=== PATIENT | female | born 1945 | race Caucasian/White ===

== ENCOUNTER 2016-08-07 10:47 | Day surgery (SDC) | payer OTHER, MEDICARE ==
[2016-07-26 10:49] VITALS: BMI 35.0
[~2016-08-07] VITALS: Ht 149.9 cm; Wt 78.6 kg
[~2016-08-07 10:47] MED LIST: CIPROFLOXACIN 400MG / 200ML D5W IV SCH; CMP/10 PO; LACTATED RINGER'S 1000ML 1,000 ML IV SCH; LEVO125T4 PO; LEVO137T3 PO; LORA-741 PO; LSX40 PO; MOME220A INH; MULT-190 PO; MULT-506 PO; ONDA4TAB46 PO; POTA20TA16 PO; VALS160T58 PO
[2016-08-07 11:03] VITALS: BP 149/65; PULSE 99; TEMP 37.4; O2SAT 95; Ht 149.9 cm; Wt 78.6 kg
[2016-08-07] MEDS ORDERED: INDOMETHACIN 50 MG SUPP PR ONE (11:15)
[2016-08-07] MEDS ORDERED: LACTATED RINGER'S 1000ML 1,000 ML IV ONE (11:15)
[2016-08-07 11:23] LABS: HEMATOCRIT 33.3 % (37-47); MEAN CELL VOLUME 92.5 fL (80-100); MEAN CORPUSCULAR HEMOGLOBIN 31.7 pg (25-34); MEAN PLATELET VOLUME 9.5 fL (7.4-10.4); PLATELET COUNT 616 K/uL (130-400); WHITE BLOOD COUNT 6.69 K/uL (4.8-10.8)
[2016-08-07 11:34] LABS: MEAN CORPUSCULAR HGB CONC 34.2 g/dl (32-36)
--- NOTE | 2016-08-07 11:51 | Endo History and Physical ---
History & Physical Date of Service: Aug 07, 2016. Chief Complaint: Biliary stent change Referring Physician: Dr. Ribera History of Present Illness Patient for a biliary stent change. History notable for pancreatic cancer, undergoing chemotherapy prior to attempted surgical resection Past Medical History High Cholesterol, Hypertension, Thyroid Disease Past Surgical History Hx Cardiac Surgery: No Hx Abdominal Surgery: No (LAPAROSCOPY) Hx Post-Op Nausea and Vomiting: No Hx Cancer Surgery: Yes (LUMPECTOMY R/L BREAST) Hx Thoracic Surgery: No Hx Orthopedic: Yes (MENISECTOMY R KNEE, CTR) Hx Urinary Tract Surgery: No Social History Smoking Status: Never Smoker Hx Substance Use: No Hx Alcohol Use: No Allergies Coded Allergies: Scopolamine (Verified Allergy, Intermediate, RASH, 08/07/16) Simvastatin (Verified Allergy, Intermediate, RASH, 08/07/16) Atorvastatin (Verified Allergy, Mild, RASH, 08/07/16) Current Medications Reported Home Medications Medications Dose Route/Sig Max Daily Dose Days Date Category Dose Instructions Prochlorperazine Maleate 10 Mg Tab 10 Mg PO UD 07/26/16 Reported AT NIGHT AFTER CHEMO Zofran (Ondansetron HCl) 4 Mg Tab 4 Mg PO TID PRN 07/26/16 Reported Klor-Con (Potassium Chloride) 20 Meq Tabcr 20 Meq PO QAM 05/23/16 Reported Multivitamin (Multivitamins) Tab 1 Tab PO QAM 05/23/16 Reported Ativan (Lorazepam) 0.5 Mg Tab 0.25-0.5 Mg PO DAILY PRN 05/23/16 Reported Levothyroxine Sodium 125 Mcg Tab 125 Mcg PO 4XWK 90 05/23/16 Reported FRIDAY, FRIDAY, FRIDAY, FRIDAY Asmanex Twisthaler 120 Me (Mometasone Furoate (Inhalation) 220 Mcg/Inh Aer 1 Puff INH BID PRN 05/23/16 Reported Diovan Hct 160MG/12.5MG (HCTZ/Valsartan) 1 Tab Tab 0.5 Tab PO DAILY 05/30/15 Reported Levothyroxine Sodium 137 Mcg Tab 137 Mcg PO 3XWK 05/30/15 Reported FRIDAY, FRIDAY, FRIDAY Ocuvite Preservision (Multivitamins/Minerals) 1 Tab Tab 2 Tab PO QAM 05/30/15 Reported Vital Signs Weight (Kilograms): 78.64 Height (Feet): 4 Height (Inches): 11 Date Time Temp Pulse Resp B/P Pulse Ox O2 Delivery O2 Flow Rate FiO2 08/07/16 11:03 37.4 99 18 149/65 95 Room Air Physical Exam General Appearance: no apparent distress Respiratory/Chest: Respiratory effort: no dyspnea Cardiovascular: Heart Auscultation: RRR, II/ HERNANDO Abdomen: Inspection & Palpation: soft Assessment and Plan Patient for a biliary stent change today. After a discussion we will place either a covered metal stent or 2 new biliary stents depending on the appearance of the cholangiogram. We have discussed the risks to include bleeding , infection, perforation, pain, pancreatitis, early stent occlusion and need for repeated procedures
[2016-08-07] MEDS ORDERED: MIDAZOLAM HCL 1 MG/ML 2ML VIAL ONE (12:58)
[2016-08-07] MEDS ORDERED: DEXAMETHASONE SOD INJ 4 MG/ML VIAL ONE (12:58)
[2016-08-07] MEDS ORDERED: FENTANYL CITRATE INJ 50 MCG/1 ML 2 ML VIAL ONE (12:58)
[2016-08-07] MEDS ORDERED: PROPOFOL IV EMULSION 10 MG/ML 20 ML VIAL IV ONE (12:58)
[2016-08-07] MEDS ORDERED: LIDOCAINE HCL 2% 2 ML VIAL (20MG/ML) ONE (12:58)
[2016-08-07] MEDS ORDERED: ONDANSETRON INJ 2 MG/ML 2 ML VIAL ONE (12:58)
[2016-08-07] MEDS ORDERED: SUCCINYLCHOLINE CHLORIDE 20 MG/ML 10 ML VIAL IV ONE (13:32)
--- NOTE | 2016-08-07 13:50 | Discharge Instructions ---
Endoscopy Patient Instructions Date / Procedure(s) Performed Aug 07, 2016. ERCP Allergy Information Coded Allergies: Scopolamine (Verified Allergy, Intermediate, RASH, 08/07/16) Simvastatin (Verified Allergy, Intermediate, RASH, 08/07/16) Atorvastatin (Verified Allergy, Mild, RASH, 08/07/16) Discharge Date / Findings Aug 07, 2016. Biliary stricture (known pancreatic mass) partially occluded biliary stent Medication Instructions Reported Home Medications Medications Dose Route/Sig Max Daily Dose Days Date Category Dose Instructions Prochlorperazine Maleate 10 Mg Tab 10 Mg PO UD 07/26/16 Reported AT NIGHT AFTER CHEMO Zofran (Ondansetron HCl) 4 Mg Tab 4 Mg PO TID PRN 07/26/16 Reported Klor-Con (Potassium Chloride) 20 Meq Tabcr 20 Meq PO QAM 05/23/16 Reported Multivitamin (Multivitamins) Tab 1 Tab PO QAM 05/23/16 Reported Ativan (Lorazepam) 0.5 Mg Tab 0.25-0.5 Mg PO DAILY PRN 05/23/16 Reported Levothyroxine Sodium 125 Mcg Tab 125 Mcg PO 4XWK 90 05/23/16 Reported FRIDAY, FRIDAY, FRIDAY, FRIDAY Asmanex Twisthaler 120 Me (Mometasone Furoate (Inhalation) 220 Mcg/Inh Aer 1 Puff INH BID PRN 05/23/16 Reported Diovan Hct 160MG/12.5MG (HCTZ/Valsartan) 1 Tab Tab 0.5 Tab PO DAILY 05/30/15 Reported Levothyroxine Sodium 137 Mcg Tab 137 Mcg PO 3XWK 05/30/15 Reported FRIDAY, FRIDAY, FRIDAY Ocuvite Preservision (Multivitamins/Minerals) 1 Tab Tab 2 Tab PO QAM 05/30/15 Reported Provider Instructions Activity Restrictions - No exercising or heavy lifting for 24 hours. - Do not drink alcohol the day of the procedure. - Do not drive a car or operate machinery until the day after the procedure. - Do not make any important decisions or sign important papers in 24 hours after the procedure. Following Day: - Return to full activity which may include returning to work/school. Diet Clear liquid diet today Treatment For Common After Affects For mild abdominal pain, bloating, or excessive gas: - Rest - Eat lightly - Lie on right side Follow-Up Information Cipro 500 mg twice daily for 3 days Clear liquid diet today Follow-up with Dr. Ribera and Dr. Peraza as scheduled Anesthesia Information What You Should Know You have had a procedure that required some medicine to reduce anxiety and discomfort. This treatment is called moderate sedation. After receiving the treatment, you may be sleepy, but you will be able to breathe on your own. The effects of the treatment may last for several hours. Follow these instructions along with Activity/Diet recommendations noted above: * Do NOT do anything where dizziness or clumsiness would be dangerous. * Rest quietly at home today, then you can be up and about tomorrow. * Have a responsible person stay with you the rest of today. * You may have had an I.V. today. If so, you may take the dressing off later today. Recommendations Call your doctor if: * Trouble breathing * Continuous vomiting for more than 24 hours * Temperature above 101 degrees * Severe abdominal pain or bloating * Pain not relieved by pain medicine ordered * There is increased drainage or redness from any incision * A large amount of rectal bleeding greater than 2-3 tablespoons. (If you had a polyp/s removed or have hemorrhoids, a small amount of blood - from the rectum is to be expected.) * You have any unanswered questions or concerns. IN THE EVENT OF A SERIOUS EMERGENCY, GO TO THE NEAREST EMERGENCY ROOM Your discharge instructions were prepared by provider Nerissa Foster. Patient Instructions Signature Page Thania Barragan Patient (or Guardian) Signature/Date: I have read and understand the instructions given to me by my caregivers. Caregiver/RN/Doctor Signature/Date: The above-named patient and/or guardian has received patient instructions on this date. + Original Patient Signature Page (only) stays with chart. Please make copy for patient.
--- NOTE | 2016-08-07 13:51 | [facility] Post Operative Brief Note ---
Immediate Operative Summary Operative Date Aug 07, 2016. Pre-Operative Diagnosis Pancreatic cancer Post-Operative Diagnosis Same as preoperative diagnosis Procedure(s) Performed Endoscopic Retrograde Cholangiopancreatogram, biliary stent exchange Surgeon Dr. Nerissa Foster Anesthesiologist Physician Surgeon(s) None Estimated Blood Loss 0 mL Findings Partially occluded biliary stent New covered metal stent placed. Specimens No pathology specimens per surgeon Anesthesia General Complication(s) None Disposition Recovery Room / PACU
[2016-08-07] MEDS ORDERED: ONDANSETRON INJ 2 MG/ML 2 ML VIAL IV PRN (14:00)
--- NOTE | 2016-08-07 14:14 | DIAGNOSTIC IMAGING REPORT ---
INTRAOPERATIVE RADIOGRAPHS CLINICAL HISTORY: ERCP procedure. Stent exchange. Fluoroscopy time: 29 seconds. FINDINGS: 9 spot fluoroscopic views of the right upper quadrant from an ERCP procedure are presented. Correlation is made with abdominal CT dated 05/24/2016. The initial image shows the endoscope present in the stomach and a common bile duct stent in place. Subsequent images show removal of the initial stent, and deployment of a new stent is deployed within the common bile duct. The intrahepatic bile ducts show only minimal dilatation. IMPRESSION: Intraoperative images from an ERCP procedure with common bile duct stent exchange as above. See operative report for detailed findings. Electronically signed by: Tano Hyde M.D. 08/07/2016 2:13 PM Dictated Date/Time: 08/07/2016 2:10 PM
--- NOTE | 2016-08-07 14:19 | Anesthesiology Progress Note ---
Anesthesia Post Op Note Date & Time Aug 07, 2016 at 14:19 Vital Signs Pain Intensity: 0 Vital Signs Past 12 Hours Date Time Temp Pulse Resp B/P Pulse Ox O2 Delivery O2 Flow Rate FiO2 08/07/16 14:15 90 16 161/75 97 Room Air 08/07/16 14:05 91 16 148/81 99 Room Air 08/07/16 13:56 87 16 149/79 100 Mask 10 08/07/16 13:47 36.2 91 16 148/83 99 Mask 10 08/07/16 11:03 37.4 99 18 149/65 95 Room Air Notes Mental Status: alert / awake / arousable, participated in evaluation Pt Amnestic to Procedure: Yes Nausea / Vomiting: adequately controlled Pain: adequately controlled Airway Patency, RR, SpO2: stable & adequate BP & HR: stable & adequate Hydration State: stable & adequate Anesthetic Complications: no major complications apparent
[2016-08-07 14:30] VITALS: BP 114/51; PULSE 88; TEMP 36.3; O2SAT 97
[2016-08-07] MEDS ORDERED: ATROPINE SULFATE 0.1 MG/ML 5ML SYR IV PRN (14:30)
[2016-08-07] MEDS ORDERED: EpHEDrine SULFATE INJ 50 MG/ML AMP IV PRN (14:30)
[2016-08-07 15:06] VITALS: BP 138/61; PULSE 89; O2SAT 97
--- NOTE | 2016-08-07 15:19 | GI REPORT ---
Procedure Date: 08/07/2016 12:55 PM Procedure: ERCP Indications: Malignant tumor of the head of pancreas, Stent change Medicines: General Anesthesia, Cipro 400 mg IV, Indocin 100 mg DC Complications: No immediate complications. Estimated blood loss: Minimal. Estimated Blood Loss: Estimated blood loss was minimal. Procedure: Pre-Anesthesia Assessment: - Prior to the procedure, a History and Physical was performed, and patient medications, allergies and sensitivities were reviewed. The patient's tolerance of previous anesthesia was reviewed. - The risks and benefits of the procedure and the sedation options and risks were discussed with the patient. All questions were answered and informed consent was obtained. - Patient identification and proposed procedure were verified prior to the procedure by the physician, the nurse and the receptionist. The procedure was verified in the procedure room. - Pre-procedure physical examination revealed no contraindications to sedation. - ASA Grade Assessment: III - A patient with severe systemic disease. - After reviewing the risks and benefits, the patient was deemed in satisfactory condition to undergo the procedure. - The anesthesia plan was to use general anesthesia. - Immediately prior to administration of medications, the patient was re-assessed for adequacy to receive sedatives. - The heart rate, respiratory rate, oxygen saturations, blood pressure, adequacy of pulmonary ventilation, and response to care were monitored throughout the procedure. - The physical status of the patient was re-assessed after the procedure. After obtaining informed consent, the scope was passed under direct vision. Throughout the procedure, the patient's blood pressure, pulse, and oxygen saturations were monitored continuously. The ERCP was accomplished without difficulty. The patient tolerated the procedure well. The Scope was introduced through the mouth, and advanced to the duodenum and used to inject contrast into the bile duct. Findings: A assistant press operator offset film of the abdomen was obtained. One stent ending in the main bile duct was seen. The esophagus was successfully intubated under direct vision without detailed examination of the pharynx, larynx, and associated structures, and upper GI tract. The upper GI tract was grossly normal. One biliary stent originating in the biliary tree was emerging from the major papilla. The stent was partially occluded. A biliary sphincterotomy had been performed. The sphincterotomy appeared open. One stent was removed from the biliary tree using a snare. The bile duct was deeply cannulated with the short-nosed traction sphincterotome (Omni 35) and 0.035 in Acrobat guidewire. Contrast was injected. I personally interpreted the bile duct images. Contrast extended to the hepatic ducts. The middle/lower third of the main bile duct contained a single segmental stenosis 20 mm in length. One 10 Fr by 6 cm (Wallfex Biliary Rx 10mm x 60 mm, REF [id number], Lot [id number]) covered metal stent was placed 5.5 cm into the common bile duct, the upper extent of the stent was below the cystic duct takeoff. Bile flowed through the stent. The stent was in good position. The total fluoroscopy exposure time was 29 seconds. The endoscope was withdrawn from the patient. Impression: - One partially occluded stent from the biliary tree was seen in the major papilla. - Prior biliary endoscopic sphincterotomy appeared open. - One stent was removed from the biliary tree. - A segmental biliary stricture was found. The stricture was malignant appearing and consistent with her know pancreatic cancer. - One covered metal stent was placed into the CBD. Recommendation: - Discharge patient to home (ambulatory). - Clear liquid diet today. - Observe patient's clinical course following today's ERCP with therapeutic intervention. - Cipro 500 mg twice daily for 3 days. Nerissa Foster D.O. Nerissa Foster, 08/07/2016 1:42:55 PM This report has been signed electronically. Note Initiated On: 08/07/2016 12:55 PM I attest to the content of the Intraoperative Record and orders documented therein, exceptions below
[2016-10-21] MEDS ORDERED: FERR325T PO (11:55)
== END 2016-08-07 16:00 | disposition home or self-care (01) ==
LOC: C.ACU 10:47
PROVIDERS: ATTEND Internal Medicine Gastroenterology
DX: C25.0 Malignant neoplasm of head of pancreas (principal); J45.909 Unspecified asthma, uncomplicated; I10 Essential (primary) hypertension; Z98.890 Other specified postprocedural states; Z68.34 Body mass index [BMI] 34.0-34.9, adult; E11.9 Type 2 diabetes mellitus without complications; F41.9 Anxiety disorder, unspecified; E66.9 Obesity, unspecified

== ENCOUNTER 2016-10-18 20:05 | Inpatient (IN) | payer OTHER, MEDICARE ==
[~2016-10-18] VITALS: Ht 149.9 cm; Wt 83.8 kg
[~2016-10-18 20:05] MED LIST changes: -CIPROFLOXACIN 400MG / 200ML D5W IV SCH; -LACTATED RINGER'S 1000ML 1,000 ML IV SCH; -LEVO125T4 PO; +LEVO125T5 PO; -LSX40 PO
[2016-10-18] MEDS ORDERED: ALBUT/IPRATROP 3MG/0.5MG NEB 3 ML VIAL INH STA (20:22)
[2016-10-18] MEDS ORDERED: SODIUM CHLORIDE 0.9% 1000ML 1,000 ML IV STA (20:22)
[2016-10-18] MEDS ORDERED: ACETAMINOPHEN 500 MG TAB PO STA (20:24)
--- NOTE | 2016-10-18 20:39 | EMERGENCY ROOM VISIT NOTE ---
History Report prepared by Seb: Sunil Rahman Under the Supervision of: Dr. Andrew Jones D.O. First contact with patient: 20:10 Chief Complaint: FEVER Stated Complaint: FEVER History of Present Illness The patient is a 71 year old female who presents to the Emergency Room with complaints of persistent cough that started yesterday. The cough is productive but clear. She notes there is no blood or mucus in it. The patient also complains of fever and swelling in her legs. The patient has a history of pancreatic cancer and is currently receiving chemo treatment. Her last round of chemo is in 3 days. The patient was with her doctors in [place] yesterday when they noticed the fever and recommended she take Cipro. They recommended she present to the urgent care or the ED if the fever didn't get better or it worsened. The patient presented to the urgent care and they recommended she present to the ED for her fever prior to arrival in the ED. The patient denies chest pain, trouble breathing, abdominal pain, or vomiting. Source of History: patient Onset: yesterday Position: other (global) Timing: other (persistent) Associated Symptoms: + fevers, No abdominal pain, No chest pain, No vomiting Note: Other associated symptoms: swelling in legs Denies: trouble breathing Review of Systems See HPI for pertinent positives & negatives. A total of 10 systems reviewed and were otherwise negative. Past Medical & Surgical Medical Problems: (1) Acute cholecystitis (2) Asthma (3) Hypercholesterolemia (4) Hypertension (5) Hypothyroidism (6) Neoplasm of head of pancreas (7) Pneumonia involving right lung Surgical Problems: (1) History of bilateral carpal tunnel release (2) History of lumpectomy of both breasts (3) Hx of meniscectomy of right knee Family History Cancer Hypertension Kidney disease Kidney stones Social History Smoking Status: Never Smoker Marital Status: Occupation Status: employed Current/Historical Medications Scheduled Furosemide (Lasix), 20 MG PO QAM Levothyroxine Sodium (Levothyroxine Sodium), 137 MCG PO 3XWK Levothyroxine Sodium (Levothyroxine Sodium), 125 MCG PO 4XWK Multivitamin (Multivitamin), 1 TAB PO QAM Ocuvite Preservision (Ocuvite Preservision), 2 TAB PO QAM Potassium Ext Rel (Klor-Con), 20 MEQ PO QAM Prochlorperazine Maleate (Prochlorperazine Maleate), 10 MG PO UD Valsartan/Hctz (Diovan Hct 160MG/12.5MG), 0.5 TAB PO DAILY Scheduled PRN Lorazepam (Ativan), 0.25-0.5 MG PO DAILY PRN for Anxiety Mometasone Furoate (Inhalation (Asmanex Twisthaler 120 Me), 1 PUFF INH BID PRN for Shortness of Breath Ondansetron Hcl (Zofran), 4 MG PO TID PRN for Nausea Allergies Coded Allergies: Scopolamine (Verified Allergy, Intermediate, RASH, 10/18/16) Simvastatin (Verified Allergy, Intermediate, RASH, 10/18/16) Atorvastatin (Verified Allergy, Mild, RASH, 10/18/16) Physical Exam Vital Signs Date Time Temp Pulse Resp B/P Pulse Ox O2 Delivery O2 Flow Rate FiO2 10/18/16 21:35 110 26 95 10/18/16 21:35 36.8 10/18/16 21:05 115 20 95 10/18/16 21:00 143/61 10/18/16 20:45 167/66 10/18/16 20:45 99 Room Air 10/18/16 20:37 113 10/18/16 20:35 113 25 93 10/18/16 20:24 37.5 117 24 167/66 96 Room Air 10/18/16 20:08 38.8 122 18 151/74 95 Room Air Physical Exam GENERAL: Patient is awake alert and mildly anxious appearing but overall comfortable. EYES: The conjunctivae are clear. The pupils are round and reactive. EARS, NOSE, MOUTH AND THROAT: The nose is without any evidence of any deformity. Mucous membranes are moist tongue is midline NECK: The neck is nontender and supple. RESPIRATORY: Lung sounds diminished throughout, mild tachypnea was noted. CARDIOVASCULAR: Tachycardic but regular. Systolic murmur appreciated to oscillation. GASTROINTESTINAL: The abdomen is soft. Bowel sounds are present in all quadrants. Abdomen is nontender MUSCULOSKELETAL/EXTREMITIES: There is no evidence of gross deformity full range of motion is noted in the hips and shoulders SKIN: There is no obvious evidence of any rash. There are no petechiae, pallor or cyanosis noted. tr NEUROLOGIC: Patient is awake alert and oriented x3 Medical Decision & Procedures ER Provider Diagnostic Interpretation: X-ray results as stated below per interpretation by me and the radiologist. CHEST ONE VIEW PORTABLE HISTORY: Fever. Sepsis COMPARISON: None. FINDINGS: Right jugular Port-A-Cath appears to terminate within the mid to distal jugular vein. No pneumothorax. Trace bilateral pleural effusions. The heart is borderline enlarged. Slight prominence of the central markings, right greater the left. This may represent mild asymmetric congestive change. There is a hazy density to the right lung base. IMPRESSION: 1. Mild asymmetric congestive change and trace bilateral pleural effusions. 2. Hazy right basilar density which may represent atelectasis or pneumonia. 3. Only a small portion of the right jugular Port-A-Cath appears to be intravascular. This terminates at the mid to distal jugular vein. Electronically signed by: Hany Corey M.D. 10/18/2016 9:05 PM Dictated Date/Time: 10/18/2016 9:03 PM Laboratory Results 10/18/16 20:30 Red Blood Count 2.87, Mean Corpuscular Volume 101.4, Mean Corpuscular Hemoglobin 33.1, Mean Corpuscular Hemoglobin Concent 32.6, Mean Platelet Volume 10.6, Neutrophils (%) (Auto) 88.4, Lymphocytes (%) (Auto) 9.6, Monocytes (%) ( Auto) 0.9, Eosinophils (%) (Auto) 0.7, Basophils (%) (Auto) 0.1, Neutrophils # ( Auto) 9.33, Lymphocytes # (Auto) 1.01, Monocytes # (Auto) 0.09, Eosinophils # ( Auto) 0.07, Basophils # (Auto) 0.01 10/18/16 20:30 Test 10/18/16 20:30 10/18/16 20:45 10/18/16 21:05 White Blood Count 10.54 K/uL (4.8-10.8) Red Blood Count 2.87 M/uL (4.2-5.4) Hemoglobin 9.5 g/dL (12.0-16.0) Hematocrit 29.1 % (37-47) Mean Corpuscular Volume 101.4 fL (80-100) Mean Corpuscular Hemoglobin 33.1 pg (25-34) Mean Corpuscular Hemoglobin Concent 32.6 g/dl (32-36) Platelet Count 319 K/uL (130-400) Mean Platelet Volume 10.6 fL (7.4-10.4) Neutrophils (%) (Auto) 88.4 % Lymphocytes (%) (Auto) 9.6 % Monocytes (%) (Auto) 0.9 % Eosinophils (%) (Auto) 0.7 % Basophils (%) (Auto) 0.1 % Neutrophils # (Auto) 9.33 K/uL (1.4-6.5) Lymphocytes # (Auto) 1.01 K/uL (1.2-3.4) Monocytes # (Auto) 0.09 K/uL (0.11-0.59) Eosinophils # (Auto) 0.07 K/uL (0-0.5) Basophils # (Auto) 0.01 K/uL (0-0.2) RDW Standard Deviation 61.0 fL (36.4-46.3) RDW Coefficient of Variation 16.5 % (11.5-14.5) Immature Granulocyte % (Auto) 0.3 % Immature Granulocyte # (Auto) 0.03 K/uL (0.00-0.02) Erythrocyte Sedimentation Rate 53 mm/hr (0-21) Prothrombin Time 11.2 SECONDS (9.0-12.0) Prothromb Time International Ratio 1.0 (0.9-1.1) Activated Partial Thromboplast Time 28.5 SECONDS (21.0-31.0) Partial Thromboplastin Ratio 1.1 Anion Gap 4.0 mmol/L (3-11) Est Creatinine Clear Calc Drug Dose 25.4 ml/min Estimated GFR () 30.4 Estimated GFR (Non- 26.3 BUN/Creatinine Ratio 19.0 (10-20) Calcium Level 8.6 mg/dl (8.5-10.1) Phosphorus Level 1.9 mg/dl (2.5-4.9) Magnesium Level 2.1 mg/dl (1.8-2.4) Total Bilirubin 0.7 mg/dl (0.2-1) Aspartate Amino Transf (AST/SGOT) 25 U/L (15-37) Alanine Aminotransferase (ALT/SGPT) 26 U/L (12-78) Alkaline Phosphatase 72 U/L (45-117) Total Creatine Kinase 112 U/L (26-192) Creatine Kinase MB < 0.5 ng/ml (0.5-3.6) Creatine Kinase MB Ratio (0-3.0) Troponin I < 0.015 ng/ml (0-0.045) C-Reactive Protein 20.30 mg/dl (0-0.29) Pro-B-Type Natriuretic Peptide 472 pg/ml (0-900) Total Protein 6.2 gm/dl (6.4-8.2) Albumin 2.9 gm/dl (3.4-5.0) Globulin 3.3 gm/dl (2.5-4.0) Albumin/Globulin Ratio 0.9 (0.9-2) Amylase Level 23 U/L (25-115) Lipase 71 U/L (73-393) Bedside Lactic Acid Venous 1.14 mmol/L (0.90-1.70) Urine Color YELLOW Urine Appearance CLEAR (CLEAR) Urine pH 5.0 (4.5-7.5) Urine Specific Cocoa 1.017 (1.000-1.030) Urine Protein TRACE (NEG) Urine Glucose (UA) NEG (NEG) Urine Ketones NEG (NEG) Urine Occult Blood TRACE (NEG) Urine Nitrite NEG (NEG) Urine Bilirubin NEG (NEG) Urine Urobilinogen NEG (NEG) Urine Leukocyte Esterase MODERATE (NEG) Urine WBC (Auto) 10-30 /hpf (0-5) Urine RBC (Auto) 0-4 /hpf (0-4) Urine Hyaline Casts (Auto) 5-10 /lpf (0-5) Urine Epithelial Cells (Auto) >30 /lpf (0-5) Urine Bacteria (Auto) NEG (NEG) Laboratory results per my review. Medications Administered Medications (Trade) Dose Ordered Sig/Gregor Route Start Time Stop Time Status Last Admin Dose Admin Sodium Chloride (Nss 1000ml) 1,000 ml @ 999 mls/hr Q1H1M STAT IV 10/18/16 20:22 10/18/16 21:22 DC 10/18/16 20:38 999 MLS/HR Albuterol/ Ipratropium (Duoneb) 3 ml NOW STAT INH 10/18/16 20:22 10/18/16 20:24 DC 10/18/16 20:37 3 ML Acetaminophen (Tylenol Tab) 1,000 mg NOW STAT PO 10/18/16 20:24 10/18/16 20:25 DC 10/18/16 20:37 1,000 MG Levofloxacin (Levaquin / D5W) 750 mg NOW STAT IV 10/18/16 21:11 10/18/16 21:12 DC 10/18/16 21:18 750 MG ECG Indication: other Rate (beats per minute): 120 Rhythm: sinus tachycardia Findings: no ectopy, other (no acute ST segment abnormality) Comparison ECG Date: increased rate otherwise no change since September 21, 1996. ED Course 2020: The patient was evaluated in room B5. A complete history and physical examination were performed. 2021: Ordered Duoneb 3 ml INH, NSS 1000 ml @ 999 mls/hr IV. 2023: Ordered Tylenol Tab 1000 mg PO. 2110: Ordered Levofloxacin 750 mg IV. 2233: At this time, I discussed the patient's case with Dr. Kasandra REINOSO and he agreed to accept the patient for further evaluation. Medical Decision Differential diagnosis: Etiologies such as viral syndrome, otitis, pharyngitis, pneumonia, influenza, meningitis, urinary tract infection, sepsis, bacteremia, as well as others were entertained. Nursing notes reviewed. The patient is a 71-year-old female who has a history of cancer who was recently treated with chemotherapy. The patient presented to the emergency department today with cough and fever. Clinically the patient appears to have decreased breath sounds and could be consistent with clinical pneumonia. Chest x -ray revealed a questionable area that I do feels consistent with pneumonia. I discussed the patient's laboratory and radiographic studies with her. She did have a slight anemia but no neutropenia. The patient was treated with IV fluids IV antibiotics. On subsequent reevaluation she was somewhat improved but continued to have tachycardia. I discussed the patient's condition with the on- call [facility] hospitalist group. Given her past medical history and her fever I feel she may be a candidate for inpatient admission at this time. Consults Time Called: [id number] Consulting Physician: Dr. Kasandra REINOSO Returned Call: [phone] At this time, I discussed the patient's case with Dr. Kasandra REINOSO and he agreed to accept the patient for further evaluation. Impression Primary Impression: Fever Additional Impressions: Pneumonia UTI (urinary tract infection) Anemia Scribe Attestation The scribe's documentation has been prepared under my direction and personally reviewed by me in its entirety. I confirm that the note above accurately reflects all work, treatment, procedures, and medical decision making performed by me. Departure Information Dispostion Being Evaluated By Hospitalist Referrals Jennifer Hylton DO (PCP) Problem Qualifiers Primary Impression: Fever Fever type: unspecified Qualified Codes: R50.9 - Fever, unspecified Additional Impressions: UTI (urinary tract infection) Urinary tract infection type: site unspecified Hematuria presence: without hematuria Qualified Codes: N39.0 - Urinary tract infection, site not specified
[2016-10-18 20:47] LABS: BASO % 0.1 %; BASO ABS # 0.01 K/uL (0-0.2); COMPLETE YES; EOS % 0.7 %; HEMATOCRIT 29.1 % (37-47); IG% 0.3 %; LYMPH % 9.6 %; LYMPH ABS # 1.01 K/uL (1.2-3.4); MEAN CELL VOLUME 101.4 fL (80-100); MEAN CORPUSCULAR HEMOGLOBIN 33.1 pg (25-34); MEAN CORPUSCULAR HGB CONC 32.6 g/dl (32-36); MEAN PLATELET VOLUME 10.6 fL (7.4-10.4); MONO % 0.9 %; NEUT % 88.4 %; PLATELET COUNT 319 K/uL (130-400); RED BLOOD COUNT 2.87 M/uL (4.2-5.4); WHITE BLOOD COUNT 10.54 K/uL (4.8-10.8)
[2016-10-18 20:58] LABS: PARTIAL THROMBOPLASTIN RATIO 1.1; PROTHROMBIN TIME (PATIENT) 11.2 SECONDS (9.0-12.0)
[2016-10-18] MEDS ORDERED: FURO40TA3 PO (21:00)
[2016-10-18 21:07] LABS: AST/SGOT 25 U/L (15-37); BLOOD UREA NITROGEN 36 mg/dl (7-18); CALCIUM 8.6 mg/dl (8.5-10.1); CARBON DIOXIDE 29 mmol/L (21-32); CHLORIDE 102 mmol/L (98-107); GLUCOSE 118 mg/dl (70-99); MAGNESIUM 2.1 mg/dl (1.8-2.4); POTASSIUM 4.5 mmol/L (3.5-5.1); SODIUM 135 mmol/L (136-145)
--- NOTE | 2016-10-18 21:07 | DIAGNOSTIC IMAGING REPORT ---
CHEST ONE VIEW PORTABLE HISTORY: Fever. Sepsis COMPARISON: None. FINDINGS: Right jugular Port-A-Cath appears to terminate within the mid to distal jugular vein. No pneumothorax. Trace bilateral pleural effusions. The heart is borderline enlarged. Slight prominence of the central markings, right greater the left. This may represent mild asymmetric congestive change. There is a hazy density to the right lung base. IMPRESSION: 1. Mild asymmetric congestive change and trace bilateral pleural effusions. 2. Hazy right basilar density which may represent atelectasis or pneumonia. 3. Only a small portion of the right jugular Port-A-Cath appears to be intravascular. This terminates at the mid to distal jugular vein. Electronically signed by: Hany Corey M.D. 10/18/2016 9:05 PM Dictated Date/Time: 10/18/2016 9:03 PM
[2016-10-18] MEDS ORDERED: LEVAQUIN 750MG / 150ML D5W IV STA (21:11)
[2016-10-18 21:17] LABS: ALB/GLOB RATIO 0.9 (0.9-2); ALKALINE PHOSPHATASE 72 U/L (45-117); ALT/SGPT 26 U/L (12-78); AMYLASE 23 U/L (25-115); PHOSPHORUS 1.9 mg/dl (2.5-4.9)
[2016-10-18 21:34] LABS: URINE APPEARANCE CLEAR (CLEAR); URINE BILIRUBIN NEG (NEG); URINE COLOR YELLOW; URINE EPITHELIAL CELL AUTO >30 /lpf (0-5); URINE NITRITE NEG (NEG); URINE SPECIFIC GRAVITY 1.017 (1.000-1.030); UROBILINOGEN NEG (NEG); ZZUR CULT IF INDIC CLEAN CATCH YES
[2016-10-18 21:36] LABS: MANUAL MICROSCOPIC REQUIRED? NO; REVIEW REQ? NO
[2016-10-18] MEDS ORDERED: LORAZEPAM 0.5 MG TAB PO PRN (22:15)
[2016-10-18] MEDS ORDERED: METHYLPREDNISOLONE IV 60 MG in SYRINGE 0 ML IV SCH (22:15)
[2016-10-18] MEDS ORDERED: ONDANSETRON INJ 2 MG/ML 2 ML VIAL IV PRN (22:15)
[2016-10-18] MEDS ORDERED: PROCHLORPERAZINE MALEATE 10 MG TAB PO PRN (22:15)
[2016-10-18] MEDS ORDERED: GUAIFENESIN/CODEINE 100MG/10MG 5ML UDC PO PRN (22:30)
[2016-10-18] MEDS ORDERED: GUAIFENESIN/CODEINE 200MG/20MG 10ML UDC PO PRN (22:30)
--- NOTE | 2016-10-18 23:23 | History and Physical ---
History & Physical Date & Time of Service: October 18, 2016 at 23:24 Chief Complaint: Pneumonia Involving Right Lung Primary Care Physician: Jennifer Hylton DO History of Present Illness Source: patient, family The patient is a 71-year-old female presents emergency department with a cough that began 6 days previously, but worsened over the last 24 hours she presently is undergoing chemotherapy for pancreatic cancer, and is undergoing Whipple procedure on November 19 at [facility] in [place]. When she was visiting her doctors in [place] yesterday, she was found to have an asymptomatic temperature, and was told to presents to urgent care or the ED for temperature lasted 24 hours. She did present to urgent care today prior to arrival, who referred her to the emergency department for assessment. She does have a history of asthma, and has been using her inhalers as directed, without significant improvement. Past Medical/Surgical History Medical Problems: (1) Asthma Status: Chronic (2) Hypercholesterolemia Status: Chronic (3) Hypertension Status: Chronic (4) Hypothyroidism Status: Chronic Surgical Problems: (1) History of bilateral carpal tunnel release Status: Resolved (2) History of lumpectomy of both breasts Status: Resolved (3) Hx of meniscectomy of right knee Status: Resolved Family History Cancer Hypertension Kidney disease Kidney stones Social History Smoking Status: Never Smoker Smokeless Tobacco Use: No Alcohol Use: none Drug Use: none Marital Status: Occupational Status: employed Multi-Drug Resistant Organisms History of MDRO: No Allergies Coded Allergies: Scopolamine (Verified Allergy, Intermediate, RASH, 10/18/16) Simvastatin (Verified Allergy, Intermediate, RASH, 10/18/16) Atorvastatin (Verified Allergy, Mild, RASH, 10/18/16) Home Medications Scheduled Furosemide (Lasix), 20 MG PO QAM Levothyroxine Sodium (Levothyroxine Sodium), 137 MCG PO 3XWK Levothyroxine Sodium (Levothyroxine Sodium), 125 MCG PO 4XWK Multivitamin (Multivitamin), 1 TAB PO QAM Ocuvite Preservision (Ocuvite Preservision), 2 TAB PO QAM Potassium Ext Rel (Klor-Con), 20 MEQ PO QAM Prochlorperazine Maleate (Prochlorperazine Maleate), 10 MG PO UD Valsartan/Hctz (Diovan Hct 160MG/12.5MG), 0.5 TAB PO DAILY Scheduled PRN Lorazepam (Ativan), 0.25-0.5 MG PO DAILY PRN for Anxiety Mometasone Furoate (Inhalation (Asmanex Twisthaler 120 Me), 1 PUFF INH BID PRN for Shortness of Breath Ondansetron Hcl (Zofran), 4 MG PO TID PRN for Nausea Review of Systems Constitutional: + fever, No chills, No fatigue, No sweats, No weakness, No weight loss Eyes: No diplopia, No discharge, No eye pain, No problem reported, No redness, No worsening of vision ENT: No dental problems, No hearing loss, No nasal symptoms, No problem reported, No sore throat, No tinnitus, No trouble swallowing, No unusual epistaxis Respiratory: + cough, No dyspnea at rest, No dyspnea on exertion, No hemoptysis , No shortness of breath, No sputum, No wheezing Cardiovascular: No PND, No chest pain, No claudication, No edema, No orthopnea , No palpitations, No problem reported Abdomen: No GI bleeding, No constipation, No diarrhea, No nausea, No pain, No problem reported, No vomiting Musculoskeletal: No calf pain, No joint pain, No muscle pain, No problem reported, No swelling Genitourinary - Female: No dysmenorrhea, No dysuria, No hematuria, No menorrhagia, No metrorrhagia, No , No problem reported, No rash, No urinary frequency, No urinary incontinence, No urinary retention, No urinary urgency, No vaginal bleeding, No vaginal discharge, No vaginal itching, No vulvodynia Neurologic: No balance problems, No memory loss, No numbness/tingling, No paralysis, No problem reported, No vertigo, No weakness Psychiatric: No anhedonism, No anxiety, No depression symptoms, No insomnia, No problem reported, No substance abuse Endocrine: No excessive thirst, No excessive urination, No fatigue, No problem reported Hematologic / Lymphatic: No abnormal bleeding/bruising, No clotting problems, No night sweats, No problem reported, No swollen lymph nodes Integumentary: No bleeding, No color change, No itch, No new/changing skin lesions, No problem reported, No rash Allergic / Immunologic: No environmental allergies, No food allergies, No frequent infections, No hives, No pet sensitivities, No poor healing, No problem reported, No prolonged convalescence, No seasonal allergies Physical Exam Vital Signs Date Time Temp Pulse Resp B/P Pulse Ox O2 Delivery O2 Flow Rate FiO2 10/18/16 22:48 37.0 105 24 137/54 94 Room Air 10/18/16 21:35 110 26 95 10/18/16 21:35 36.8 10/18/16 21:05 115 20 95 10/18/16 21:00 143/61 10/18/16 20:45 167/66 10/18/16 20:45 99 Room Air 10/18/16 20:37 113 10/18/16 20:35 113 25 93 10/18/16 20:24 37.5 117 24 167/66 96 Room Air 10/18/16 20:08 38.8 122 18 151/74 95 Room Air General Appearance: WD/WN, no apparent distress Head: normocephalic, atraumatic Eyes: normal inspection, PERRL, EOMI, sclerae normal ENT: normal ENT inspection, hearing grossly normal, pharynx normal Neck: supple, no adenopathy, thyroid normal, no JVD, no carotid bruits, trachea midline Respiratory/Chest: chest non-tender, no respiratory distress, no accessory muscle use, + rhonchi (bilaterally.), + wheezing (bilaterally anterior and posteriorly.) Cardiovascular: regular rate, rhythm, no edema, no gallop, no JVD, no murmur, normal peripheral pulses Abdomen/GI: normal bowel sounds, non tender, soft, no organomegaly, no pulsatile mass Back: normal inspection, no CVA tenderness, no muscle spasm, normal range of motion Extremities/Musculoskelatal: normal inspection, no calf tenderness, normal capillary refill, no pedal edema, normal range of motion, non-tender Neurologic/Psych: research assistant member II-XII nml as tested, no motor/sensory deficits, alert, normal mood/affect, normal reflexes, oriented x 3 Skin: normal color, warm/dry, no rash Lymphatic: no adenopathy Diagnostics Laboratory Results Results Past 24 Hours Test 10/18/16 20:30 10/18/16 20:45 10/18/16 21:05 Range/Units White Blood Count 10.54 4.8-10.8 K/uL Red Blood Count 2.87 4.2-5.4 M/uL Hemoglobin 9.5 12.0-16.0 g/dL Hematocrit 29.1 37-47 % Mean Corpuscular Volume 101.4 80-100 fL Mean Corpuscular Hemoglobin 33.1 25-34 pg Mean Corpuscular Hemoglobin Concent 32.6 32-36 g/dl Platelet Count 319 130-400 K/uL Mean Platelet Volume 10.6 7.4-10.4 fL Neutrophils (%) (Auto) 88.4 % Lymphocytes (%) (Auto) 9.6 % Monocytes (%) (Auto) 0.9 % Eosinophils (%) (Auto) 0.7 % Basophils (%) (Auto) 0.1 % Neutrophils # (Auto) 9.33 1.4-6.5 K/uL Lymphocytes # (Auto) 1.01 1.2-3.4 K/uL Monocytes # (Auto) 0.09 0.11-0.59 K/uL Eosinophils # (Auto) 0.07 0-0.5 K/uL Basophils # (Auto) 0.01 0-0.2 K/uL RDW Standard Deviation 61.0 36.4-46.3 fL RDW Coefficient of Variation 16.5 11.5-14.5 % Immature Granulocyte % (Auto) 0.3 % Immature Granulocyte # (Auto) 0.03 0.00-0.02 K/uL Erythrocyte Sedimentation Rate 53 0-21 mm/hr Prothrombin Time 11.2 9.0-12.0 SECONDS Prothromb Time International Ratio 1.0 0.9-1.1 Activated Partial Thromboplast Time 28.5 21.0-31.0 SECONDS Partial Thromboplastin Ratio 1.1 Sodium Level 135 136-145 mmol/L Potassium Level 4.5 3.5-5.1 mmol/L Chloride Level 102 98-107 mmol/L Carbon Dioxide Level 29 21-32 mmol/L Anion Gap 4.0 3-11 mmol/L Blood Urea Nitrogen 36 7-18 mg/dl Creatinine 1.90 0.60-1.20 mg/dl Est Creatinine Clear Calc Drug Dose 25.4 ml/min Estimated GFR () 30.4 Estimated GFR (Non- 26.3 BUN/Creatinine Ratio 19.0 10-20 Random Glucose 118 70-99 mg/dl Calcium Level 8.6 8.5-10.1 mg/dl Phosphorus Level 1.9 2.5-4.9 mg/dl Magnesium Level 2.1 1.8-2.4 mg/dl Total Bilirubin 0.7 0.2-1 mg/dl Aspartate Amino Transf (AST/SGOT) 25 15-37 U/L Alanine Aminotransferase (ALT/SGPT) 26 12-78 U/L Alkaline Phosphatase 72 45-117 U/L Total Creatine Kinase 112 26-192 U/L Creatine Kinase MB < 0.5 0.5-3.6 ng/ml Creatine Kinase MB Ratio 0-3.0 Troponin I < 0.015 0-0.045 ng/ml C-Reactive Protein 20.30 0-0.29 mg/dl Pro-B-Type Natriuretic Peptide 472 0-900 pg/ml Total Protein 6.2 6.4-8.2 gm/dl Albumin 2.9 3.4-5.0 gm/dl Globulin 3.3 2.5-4.0 gm/dl Albumin/Globulin Ratio 0.9 0.9-2 Amylase Level 23 25-115 U/L Lipase 71 73-393 U/L Bedside Lactic Acid Venous 1.14 0.90-1.70 mmol/L Urine Color YELLOW Urine Appearance CLEAR CLEAR Urine pH 5.0 4.5-7.5 Urine Specific [place] 1.017 1.000-1.030 Urine Protein TRACE NEG Urine Glucose (UA) NEG NEG Urine Ketones NEG NEG Urine Occult Blood TRACE NEG Urine Nitrite NEG NEG Urine Bilirubin NEG NEG Urine Urobilinogen NEG NEG Urine Leukocyte Esterase MODERATE NEG Urine WBC (Auto) 10-30 0-5 /hpf Urine RBC (Auto) 0-4 0-4 /hpf Urine Hyaline Casts (Auto) 5-10 0-5 /lpf Urine Epithelial Cells (Auto) >30 0-5 /lpf Urine Bacteria (Auto) NEG NEG Microbiology Results 10/18/16 Blood Culture, Received Pending 10/18/16 Blood Culture, Received Pending 10/18/16 Urine Culture, Received Pending Diagnostic Radiology Patient Name: AMRITA LORENOZ Unit Number: [id number] Dictated: 10/18/162102 Transcribed: 10/18/162102 [place] Printed Date/Time: [~ rep prt dt]/[~ rep prt tm] [~ rep ct labl] - [~ rep ct ivnm] [facility] Radiology Department [place], [place] [id number] Dictated: 10/18/162102 Transcribed: 10/18/162102 [facility] Printed Date/Time: [~ rep prt dt]/[~ rep prt tm] [~ rep ct labl] - [~ rep ct ivnm] [~ rep ct add3]] CHEST ONE VIEW PORTABLE HISTORY: Fever. Sepsis COMPARISON: None. FINDINGS: Right jugular Port-A-Cath appears to terminate within the mid to distal jugular vein. No pneumothorax. Trace bilateral pleural effusions. The heart is borderline enlarged. Slight prominence of the central markings, right greater the left. This may represent mild asymmetric congestive change. There is a hazy density to the right lung base. IMPRESSION: 1. Mild asymmetric congestive change and trace bilateral pleural effusions. 2. Hazy right basilar density which may represent atelectasis or pneumonia. 3. Only a small portion of the right jugular Port-A-Cath appears to be intravascular. This terminates at the mid to distal jugular vein. Electronically signed by: Hany Corey M.D. 10/18/2016 9:05 PM Dictated Date/Time: 10/18/2016 9:03 PM The status of this report is Signed. Draft = Not yet reviewed or approved by Radiologist. Signed = Reviewed and approved by Radiologist. <AttendingPhy></AttendingPhy> <FamilyPhy>Jennifer Hylton, </FamilyPhy> < PrimaryPhy>Jennifer Hylton, DO</PrimaryPhy> <UnitNumber>[id number]</UnitNumber > <VisitNumber>[id number]</VisitNumber> <PatientName>AMRITA LORENZO</PatientName > <DateOfBirth>1945</DateOfBirth> <Location>[facility]</Location> <ServiceDate> 10/18/16</ServiceDate> <MNE>ESINDI</MNE> <OrderingPhy>Andrew Jones D.O.</ OrderingPhy> <OrderingPhyMNE>f rep ord dr lorenzana</OrderingPhyMNE> <DictatingPhyMNE> f rep dict dr lorenzana</DictatingPhyMNE> <CCListMNE>f rep ct salomón</CCListMNE> < AdmittingPhyMNE>f pt admit dr lorenzana</AdmittingPhyMNE> <AttendingPhyMNE>f pt attend dr lorenzana</AttendingPhyMNE> <ConsultingPhyMNE>f pt consult dr lorenzana</ConsultingPhyMNE> <FamilyPhyMNE>f pt fam dr lorenzana</FamilyPhyMNE> <OtherPhyMNE>f pt other dr lorenzana</OtherPhyMNE> < PrimaryPhyMNE>f pt prim care dr lorenzana</PrimaryPhyMNE> <ReferringPhyMNE>f pt referring dr lorenzana</ReferringPhyMNE> EKG EKG shows sinus tachycardia at 120 bpm, there are no acute ST-T changes. Impression Assessment and Plan Right lower lobe pneumonia/SIRS/healthcare setting associated--patient will be placed on vancomycin IV, Zosyn IV, levofloxacin IV, Solu-Medrol IV, guaifenesin by mouth and Xopenex with Atrovent nebulizers. Pancreatic cancer --She has been undergoing chemotherapy for 3 months, with her last treatment due in 3 days. She is scheduled to undergo a Whipple procedure on November 19 at [facility] in [place]. I we will consult her oncologist Dr. Ribera. Hypertension/renal insufficiency--hold furosemide 20 mg by mouth every morning, and Diovan/HCTZ 160/12.5 one half tablet by mouth daily. Place on normal saline at 100 mils per hour, repeat PRP in a.m. Hypothyroidism--she presently takes levothyroxine 125 g by mouth 4 times per week, and 137 g 3 times. Level of Care Med/Surg Advanced Directives Existing Advance Directive: No Existing Living Will: No Existing Power of Economic Analyst: No Resuscitation Status FULL RESUSCITATION VTE Prophylaxis VTE Risk Assessment Done? Y/N: Yes Risk Level: Moderate Given or contraindicated: SCD's Social Service Consult None Apply
[2016-10-18] MEDS ORDERED: IPRATROPIUM BROMIDE NEB SOLN 0.02% 2.5 ML VIAL INH PRN (23:45)
[2016-10-18] MEDS ORDERED: LEVALBUTEROL 1.25MG/0.5ML NEB INH PRN (23:45)
[2016-10-18] MEDS ORDERED: LEVOFLOXACIN CONSULT ACTIVE PRN (23:45)
[2016-10-18] MEDS ORDERED: CEFTRIAXONE SOD INJ 1 GM in DEXTROSE 5% ADD-VANTAGE 50ML 50 ML IV SCH (23:45)
[2016-10-19] VITALS (12 sets, daily range): BP systolic 118–165; BP diastolic 69–82; PULSE 83–101; TEMP 36.7–36.9; O2SAT 91–99; Ht 149.9 cm; Wt 83.8 kg
[2016-10-19] MEDS: IPRATROPIUM BROMIDE NEB SOLN 0.02% 2.5 ML VIAL INH SCH ×4 (01:35→19:00)
[2016-10-19] MEDS: LEVALBUTEROL 1.25MG/0.5ML NEB INH SCH ×4 (01:35→19:00)
[2016-10-19] MEDS ORDERED: LEVALBUTEROL/IPRATROPIUM NEB INH SCH (03:00)
[2016-10-19] MEDS ORDERED: VANCOMYCIN CONSULT ACTIVE PRN (03:30)
[2016-10-19] MEDS ORDERED: VANCOMYCIN INJ 2,000 MG in SODIUM CHLORIDE 0.9% 500ML 500 ML IV ONE (03:30)
[2016-10-19] MEDS ORDERED: PIPERACILL/TAZOBAC IV 4.5 GM in DEXTROSE 5% 100ML IV ONE (03:30)
[2016-10-19] MEDS ORDERED: PIPERACILL/TAZOBAC CONSULT ACTIVE PRN (03:30)
[2016-10-19] MEDS: SODIUM CHLORIDE 0.9% 1000ML 1,000 ML IV SCH ×2 (04:55→14:25)
[2016-10-19] MEDS ORDERED: LEVOTHYROXINE 125 MCG TAB PO SCH (06:30)
[2016-10-19 06:34] LABS: BASO % 0.1 %; BASO ABS # 0.01 K/uL (0-0.2); EOS % 0.6 %; HEMATOCRIT 25.4 % (37-47); IG% 0.4 %; LYMPH % 16.3 %; MEAN CORPUSCULAR HEMOGLOBIN 33.3 pg (25-34); MEAN CORPUSCULAR HGB CONC 32.7 g/dl (32-36); MEAN PLATELET VOLUME 10.9 fL (7.4-10.4); MONO % 2.5 %; NEUT % 80.1 %; PLATELET COUNT 257 K/uL (130-400); RED BLOOD COUNT 2.49 M/uL (4.2-5.4); WHITE BLOOD COUNT 6.76 K/uL (4.8-10.8)
[2016-10-19] MEDS: METHYLPREDNISOLONE IV 30 MG in SYRINGE 0 ML IV SCH ×2 (06:43→14:26)
[2016-10-19 06:56] LABS: BUN/CREATININE RATIO 18.8 (10-20); CALCIUM 7.7 mg/dl (8.5-10.1); CREATININE 1.6 mg/dl (0.60-1.20); MAGNESIUM 2.1 mg/dl (1.8-2.4); POTASSIUM 4.3 mmol/L (3.5-5.1)
[2016-10-19 07:00] LABS: COMPLETE YES; TEAR DROP CELLS 1+
[2016-10-19] MEDS ORDERED: COUGH DROP (SUGAR FREE) LOZ 24 LOZ/1 BOX ONE (08:12)
[2016-10-19] MEDS ORDERED: NURSING DECISION MEDICATION ORDER SCH (08:15)
[2016-10-19] MEDS: CEROVITE ADV FORMULA TAB PO SCH (08:16)
[2016-10-19] MEDS: MULTIVITAMIN TAB PO SCH (08:16)
[2016-10-19] MEDS: GUAIFENESIN 600 MG TABCR PO SCH ×2 (08:17→21:05)
--- NOTE | 2016-10-19 08:19 | Pharmacy Progress Note ---
Pharmacy Abx Initial Consult Date of Service October 19, 2016. Pharmacy Dosing Scope Date of Consult: 10/19/16 Consultation requested by: Dr. Stafford Pharmacy is consulted to initiate IV VANCOMYCIN, ZOSYN, and LEVOFLOXACIN therapy , order appropriate labs and adjust drug dose/frequency. Subjective The patient is a 71 year old female admitted on October 18, 2016 at 22:21 for cough , fever, likely RLL PNX in the setting of chemotherapy. Objective Height (Feet): 4 Height (Inches): 11.00 Weight (Kilograms): 81.000 Vital Signs (Past 12Hrs) Vital Signs Past 12 Hours Date Time Temp Pulse Resp B/P Pulse Ox O2 Delivery O2 Flow Rate FiO2 10/19/16 08:05 36.8 98 20 165/78 93 10/19/16 03:48 36.8 96 20 118/71 96 10/19/16 01:35 98 16 95 Room Air 10/19/16 00:30 36.9 123/69 10/19/16 00:30 96 Room Air 10/18/16 22:48 37.0 105 24 137/54 94 Room Air 10/18/16 21:35 110 26 95 10/18/16 21:35 36.8 10/18/16 21:05 115 20 95 10/18/16 21:00 143/61 10/18/16 20:45 167/66 10/18/16 20:45 99 Room Air 10/18/16 20:37 113 10/18/16 20:35 113 25 93 10/18/16 20:24 37.5 117 24 167/66 96 Room Air 10/18/16 20:08 38.8 122 18 151/74 95 Room Air Lab Results (24Hrs) Test 10/18/16 20:30 10/18/16 20:45 10/18/16 21:05 10/19/16 05:26 White Blood Count 10.54 K/uL (4.8-10.8) 6.76 K/uL (4.8-10.8) Red Blood Count 2.87 M/uL (4.2-5.4) 2.49 M/uL (4.2-5.4) Hemoglobin 9.5 g/dL (12.0-16.0) 8.3 g/dL (12.0-16.0) Hematocrit 29.1 % (37-47) 25.4 % (37-47) Mean Corpuscular Volume 101.4 fL (80-100) 102.0 fL (80-100) Mean Corpuscular Hemoglobin 33.1 pg (25-34) 33.3 pg (25-34) Mean Corpuscular Hemoglobin Concent 32.6 g/dl (32-36) 32.7 g/dl (32-36) Platelet Count 319 K/uL (130-400) 257 K/uL (130-400) Mean Platelet Volume 10.6 fL (7.4-10.4) 10.9 fL (7.4-10.4) Neutrophils (%) (Auto) 88.4 % 80.1 % Lymphocytes (%) (Auto) 9.6 % 16.3 % Monocytes (%) (Auto) 0.9 % 2.5 % Eosinophils (%) (Auto) 0.7 % 0.6 % Basophils (%) (Auto) 0.1 % 0.1 % Neutrophils # (Auto) 9.33 K/uL (1.4-6.5) 5.41 K/uL (1.4-6.5) Lymphocytes # (Auto) 1.01 K/uL (1.2-3.4) 1.10 K/uL (1.2-3.4) Monocytes # (Auto) 0.09 K/uL (0.11-0.59) 0.17 K/uL (0.11-0.59) Eosinophils # (Auto) 0.07 K/uL (0-0.5) 0.04 K/uL (0-0.5) Basophils # (Auto) 0.01 K/uL (0-0.2) 0.01 K/uL (0-0.2) RDW Standard Deviation 61.0 fL (36.4-46.3) 61.0 fL (36.4-46.3) RDW Coefficient of Variation 16.5 % (11.5-14.5) 16.7 % (11.5-14.5) Immature Granulocyte % (Auto) 0.3 % 0.4 % Immature Granulocyte # (Auto) 0.03 K/uL (0.00-0.02) 0.03 K/uL (0.00-0.02) Erythrocyte Sedimentation Rate 53 mm/hr (0-21) Prothrombin Time 11.2 SECONDS (9.0-12.0) Prothromb Time International Ratio 1.0 (0.9-1.1) Activated Partial Thromboplast Time 28.5 SECONDS (21.0-31.0) Partial Thromboplastin Ratio 1.1 Sodium Level 135 mmol/L (136-145) 137 mmol/L (136-145) Potassium Level 4.5 mmol/L (3.5-5.1) 4.3 mmol/L (3.5-5.1) Chloride Level 102 mmol/L (98-107) 104 mmol/L (98-107) Carbon Dioxide Level 29 mmol/L (21-32) 28 mmol/L (21-32) Anion Gap 4.0 mmol/L (3-11) 5.0 mmol/L (3-11) Blood Urea Nitrogen 36 mg/dl (7-18) 30 mg/dl (7-18) Creatinine 1.90 mg/dl (0.60-1.20) 1.60 mg/dl (0.60-1.20) Est Creatinine Clear Calc Drug Dose 25.4 ml/min 30.1 ml/min Estimated GFR () 30.4 37.4 Estimated GFR (Non- 26.3 32.3 BUN/Creatinine Ratio 19.0 (10-20) 18.8 (10-20) Random Glucose 118 mg/dl (70-99) 124 mg/dl (70-99) Calcium Level 8.6 mg/dl (8.5-10.1) 7.7 mg/dl (8.5-10.1) Phosphorus Level 1.9 mg/dl (2.5-4.9) Magnesium Level 2.1 mg/dl (1.8-2.4) 2.1 mg/dl (1.8-2.4) Total Bilirubin 0.7 mg/dl (0.2-1) Aspartate Amino Transf (AST/SGOT) 25 U/L (15-37) Alanine Aminotransferase (ALT/SGPT) 26 U/L (12-78) Alkaline Phosphatase 72 U/L (45-117) Total Creatine Kinase 112 U/L (26-192) Creatine Kinase MB < 0.5 ng/ml (0.5-3.6) Creatine Kinase MB Ratio (0-3.0) Troponin I < 0.015 ng/ml (0-0.045) C-Reactive Protein 20.30 mg/dl (0-0.29) Pro-B-Type Natriuretic Peptide 472 pg/ml (0-900) Total Protein 6.2 gm/dl (6.4-8.2) Albumin 2.9 gm/dl (3.4-5.0) Globulin 3.3 gm/dl (2.5-4.0) Albumin/Globulin Ratio 0.9 (0.9-2) Amylase Level 23 U/L (25-115) Lipase 71 U/L (73-393) Bedside Lactic Acid Venous 1.14 mmol/L (0.90-1.70) Urine Color YELLOW Urine Appearance CLEAR (CLEAR) Urine pH 5.0 (4.5-7.5) Urine Specific [place] 1.017 (1.000-1.030) Urine Protein TRACE (NEG) Urine Glucose (UA) NEG (NEG) Urine Ketones NEG (NEG) Urine Occult Blood TRACE (NEG) Urine Nitrite NEG (NEG) Urine Bilirubin NEG (NEG) Urine Urobilinogen NEG (NEG) Urine Leukocyte Esterase MODERATE (NEG) Urine WBC (Auto) 10-30 /hpf (0-5) Urine RBC (Auto) 0-4 /hpf (0-4) Urine Hyaline Casts (Auto) 5-10 /lpf (0-5) Urine Epithelial Cells (Auto) >30 /lpf (0-5) Urine Bacteria (Auto) NEG (NEG) Tear Drop Cells 1+ Micro Results Date/Time Source Procedure Growth Status 10/18/16 20:40 Blood Blood Culture Pending Received 10/18/16 20:35 Blood Blood Culture Pending Received 10/18/16 21:05 Urine , Clean Catch Urine Culture Pending Received Risk Factors for Resistance * Immunocompromised (chemotherapy) Assessment & Plan Assessment 71 year old female admitted w/ 6 day h/o cough, worsening symptoms and fever. Initial dx is RLL PNX in the setting of ongoing chemotherapy for pancreatic cancer. Currently non-neutropenic. Patient did present w/ VAN as baseline SCr 1-1.2, currently up to 1.6-1.9, but appears to be improving w/ hydration. Urine output is not being documented at this time. Vital signs stable. Plan Vancomycin IV * Loading dose: 2000 mg (25 mg/kg) * Maintenance dose: 1200 mg IV (~15 mg/kg) every 24 hours * Goal trough level for HCAP : 15 to 20 mcg/mL * Trough level ordered for 10/22/16 Piperacillin/tazobactam * 4.5 g bolus administered over 30 minutes, then 4.5 g IV extended infusion every 8 hours for CrCl greater than 20 mL/min OR every 12 hours for CrCl 20 mL/ min or less and dialysis. * Aggressive dosing selected due to critically ill status/BMI 35 or more/ history of cystic fibrosis. Levofloxacin * 750mg IV Q 48 hours indicated for eCrCl for CrCl 20-49cc/min Pharmacy will continue to follow and will adjust dose/frequency as necessary. Thank you.
[2016-10-19] MEDS ORDERED: COUGH DROP (SUGAR FREE) LOZ 24 LOZ/1 BOX PO PRN (08:30)
[2016-10-19] MEDS: PIPERACILL/TAZOBAC IV 4.5 GM in DEXTROSE 5% 100ML 100 ML IV SCH ×2 (10:19→18:01)
[2016-10-19] MEDS: HEPARIN SOD 5000 UNIT/0.5 ML CARP SQ SCH ×2 (10:25→21:07)
[2016-10-19 11:50] LABS: FERRITIN 1304.4 ng/ml (8.0-388.0); THYROID STIMULATING HORMONE 7.08 uIu/ml (0.300-4.500)
[2016-10-19] MEDS ORDERED: CYANOCOBALAMIN 1000 MCG/ML VIAL IM ONE (17:15)
[2016-10-20] VITALS (15 sets, daily range): BP systolic 128–173; BP diastolic 72–95; PULSE 80–111; TEMP 36.3–36.8; O2SAT 94–100
[2016-10-20] MEDS: SODIUM CHLORIDE 0.9% 1000ML 1,000 ML IV SCH (00:01)
--- NOTE | 2016-10-20 00:40 | Progress Note ---
Subjective Date of Service: October 19, 2016. Subjective Pt evaluation today including: conversation w/ patient, physical exam, chart review, lab review, review of inpatient medication list Pain: denies PO Intake: improved today Voiding: no voiding problems feels better today less wheeze, cough, sob is hoping she can take her chemo next week for her pancreatic ca reports LE edema x 2 weeks denies any recent hospital stay Problem List Medical Problems: (1) Anemia Status: Acute (2) Cholecystitis Status: Acute (3) Elevated LFTs Status: Acute (4) Fever Status: Acute (5) Pancreatitis Status: Acute (6) Pneumonia Status: Acute (7) UTI (urinary tract infection) Status: Acute Review of Systems Constitutional: No chills, No fever Respiratory: No dyspnea on exertion, No shortness of breath Cardiac: No chest pain Abdomen: No pain Objective Vital Signs Date Time Temp Pulse Resp B/P Pulse Ox O2 Delivery O2 Flow Rate FiO2 10/20/16 00:17 36.8 86 20 143/78 96 Room Air 10/19/16 19:39 36.8 101 20 149/79 96 Room Air 10/19/16 19:00 84 18 95 Room Air 10/19/16 16:07 36.7 98 20 142/82 99 Room Air 10/19/16 16:00 96 Room Air 10/19/16 14:26 92 16 93 Room Air 10/19/16 09:44 99 150/81 10/19/16 08:19 83 16 91 Room Air 10/19/16 08:05 36.8 98 20 165/78 93 10/19/16 08:00 93 Room Air 10/19/16 03:48 36.8 96 20 118/71 96 10/19/16 01:35 98 16 95 Room Air Physical Exam General Appearance: no apparent distress ENT: pharynx normal Neck: no JVD Respiratory/Chest: no respiratory distress, no accessory muscle use, + crackles (both bases) Cardiovascular: regular rate, rhythm, no gallop, + systolic murmur Abdomen: normal bowel sounds, non tender, soft, no organomegaly Extremities: + pedal edema (1+ b/l ) Neurologic/Psychiatric: alert, oriented x 3 Skin: no rash, + pertinent finding (port, right upper chest, clean ) Laboratory Results Last 24 Hours Test 10/19/16 05:10/19/16 11:00 White Blood Count 6.76 K/uL Red Blood Count 2.49 M/uL Hemoglobin 8.3 g/dL Hematocrit 25.4 % Mean Corpuscular Volume 102.0 fL Mean Corpuscular Hemoglobin 33.3 pg Mean Corpuscular Hemoglobin Concent 32.7 g/dl Platelet Count 257 K/uL Mean Platelet Volume 10.9 fL Neutrophils (%) (Auto) 80.1 % Lymphocytes (%) (Auto) 16.3 % Monocytes (%) (Auto) 2.5 % Eosinophils (%) (Auto) 0.6 % Basophils (%) (Auto) 0.1 % Neutrophils # (Auto) 5.41 K/uL Lymphocytes # (Auto) 1.10 K/uL Monocytes # (Auto) 0.17 K/uL Eosinophils # (Auto) 0.04 K/uL Basophils # (Auto) 0.01 K/uL RDW Standard Deviation 61.0 fL RDW Coefficient of Variation 16.7 % Immature Granulocyte % (Auto) 0.4 % Immature Granulocyte # (Auto) 0.03 K/uL Tear Drop Cells 1+ Sodium Level 137 mmol/L Potassium Level 4.3 mmol/L Chloride Level 104 mmol/L Carbon Dioxide Level 28 mmol/L Anion Gap 5.0 mmol/L Blood Urea Nitrogen 30 mg/dl Creatinine 1.60 mg/dl Est Creatinine Clear Calc Drug Dose 30.1 ml/min Estimated GFR () 37.4 Estimated GFR (Non- 32.3 BUN/Creatinine Ratio 18.8 Random Glucose 124 mg/dl Calcium Level 7.7 mg/dl Magnesium Level 2.1 mg/dl Iron Level 22 mcg/dl Total Iron Binding Capacity 222 mcg/dl Transferrin 179 mg/dl Transferrin % Saturation 9 % Ferritin 1304.4 ng/ml Vitamin B12 Level 226 pg/mL Folate > 24.00 ng/mL Thyroid Stimulating Hormone (TSH) 7.080 uIu/ml Assessment and Plan 71yo female with: 1. RLL pneumonia - treating for gram negative etiology. Cont current IV abx. 2. asthma with exacerbation - improved. Cut steroids to q12h. Cont nebs, incentive anum, etc 3. vitamin b12 deficiency - supplement b12 1000mcg IM daily. 4. hypothyroidism - last 2 TSH levels were high; increase hypothyroidism dosing to 137mcg daily. 5. pancreatic ca - s/p chemo in the recent past, and planning Whipple in future. 6. HTN - controlled. 7. acute kidney injury - due to #1 and due to recent chemo in setting of #5. Cont to hydrate, repeat BMP am. 8. 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 9. LE edema - ordered dopplers, r/o DVT (especially in light of cancer). 10. DVT proph - heparin progressing Continued [facility] stay due to: multiple IV medications needed Discharge planning: home
[2016-10-20] MEDS ORDERED: METHYLPREDNISOLONE IV 30 MG in SYRINGE 0 ML IV SCH (02:00)
[2016-10-20] MEDS: LEVALBUTEROL 1.25MG/0.5ML NEB INH SCH ×4 (02:14→19:35)
[2016-10-20] MEDS: IPRATROPIUM BROMIDE NEB SOLN 0.02% 2.5 ML VIAL INH SCH ×4 (02:14→19:35)
[2016-10-20] MEDS: PIPERACILL/TAZOBAC IV 4.5 GM in DEXTROSE 5% 100ML 100 ML IV SCH ×3 (02:25→17:44)
[2016-10-20] MEDS ORDERED: VANCOMYCIN INJ 1,200 MG in SODIUM CHLORIDE 0.9% 250ML 250 ML IV SCH (05:00)
[2016-10-20] MEDS: LEVOTHYROXINE 137 MCG TAB PO SCH (05:40)
[2016-10-20 06:07] LABS: HEMATOCRIT 25.8 % (37-47); IG% 0.6 %; LYMPH % 9.3 %; LYMPH ABS # 0.58 K/uL (1.2-3.4); MEAN CELL VOLUME 101.6 fL (80-100); MEAN CORPUSCULAR HEMOGLOBIN 33.5 pg (25-34); MEAN CORPUSCULAR HGB CONC 32.9 g/dl (32-36); MEAN PLATELET VOLUME 10.6 fL (7.4-10.4); MONO % 6.4 %; NEUT % 83.7 %; PLATELET COUNT 223 K/uL (130-400); RED BLOOD COUNT 2.54 M/uL (4.2-5.4); WHITE BLOOD COUNT 6.26 K/uL (4.8-10.8)
[2016-10-20 06:31] LABS: COMPLETE YES
[2016-10-20 06:51] LABS: BUN/CREATININE RATIO 19.5 (10-20); CALCIUM 8.5 mg/dl (8.5-10.1); CREATININE 1.6 mg/dl (0.60-1.20); POTASSIUM 5.1 mmol/L (3.5-5.1)
--- NOTE | 2016-10-20 06:58 | DIAGNOSTIC IMAGING REPORT ---
BILATERAL LOWER EXTREMITY VENOUS DOPPLER CLINICAL HISTORY: Edema. Pancreatic cancer. COMPARISON STUDY: No previous studies for comparison. TECHNIQUE: Sonography of the deep venous system of the bilateral lower extremities was performed. Compression and augmentation were evaluated. FINDINGS: The bilateral common femoral, superficial femoral and popliteal veins were compressible. Augmentation was normal. Flow was shown within the deep calf vessels. Note was made of a 3.9 x 1.6 x 3.2 cm left popliteal cyst. IMPRESSION: 1. No evidence of deep venous thrombus within the bilateral lower extremities. 2. 3.9 x 1.6 x 3.2 cm left popliteal cyst. Electronically signed by: Florencio Marx M.D. 10/20/2016 6:57 AM Dictated Date/Time: 10/20/2016 6:56 AM
[2016-10-20] MEDS: CEROVITE ADV FORMULA TAB PO SCH (08:23)
[2016-10-20] MEDS: MULTIVITAMIN TAB PO SCH (08:23)
[2016-10-20] MEDS: GUAIFENESIN 600 MG TABCR PO SCH ×2 (08:23→20:52)
[2016-10-20] MEDS: HEPARIN SOD 5000 UNIT/0.5 ML CARP SQ SCH ×2 (08:46→20:57)
[2016-10-20] MEDS: CYANOCOBALAMIN 1000 MCG/ML VIAL IM SCH (08:47)
[2016-10-20] MEDS: FUROSEMIDE 20 MG TAB PO SCH (13:07)
[2016-10-20] MEDS: METOPROLOL TARTRATE 25 MG TAB PO SCH ×2 (14:13→20:52)
[2016-10-20] MEDS ORDERED: LEVOFLOXACIN / D5W 750 MG in PREMIXED IN D5W 150 ML IV SCH (20:00)
--- NOTE | 2016-10-20 23:51 | Progress Note ---
Subjective Date of Service: October 20, 2016. Subjective Pt evaluation today including: conversation w/ patient, conversation w/ family (daughter at bedside), physical exam, chart review, lab review, review of inpatient medication list Pain: denies PO Intake: improved Voiding: no voiding problems feels "much better" minimal cough no dyspnea anxious that the pneumonia will delay her chemotherapy treatment this week followed by Dr. Ribera at [facility]/onc in [place] Problem List Medical Problems: (1) Anemia Status: Acute (2) Cholecystitis Status: Acute (3) Elevated LFTs Status: Acute (4) Fever Status: Acute (5) Pancreatitis Status: Acute (6) Pneumonia Status: Acute (7) UTI (urinary tract infection) Status: Acute Review of Systems Constitutional: No chills, No fever Respiratory: + cough, No dyspnea on exertion, No shortness of breath, No sputum Cardiac: No chest pain, No orthopnea Abdomen: No pain Objective Vital Signs Date Time Temp Pulse Resp B/P Pulse Ox O2 Delivery O2 Flow Rate FiO2 10/20/16 20:48 36.7 89 147/80 10/20/16 20:28 98 16 96 Room Air 10/20/16 19:40 36.3 87 20 131/77 98 Room Air 10/20/16 16:00 96 Room Air 10/20/16 15:07 36.7 92 18 128/72 96 Room Air 10/20/16 14:11 102 16 98 Room Air 10/20/16 14:07 36.5 104 18 163/89 96 Room Air 10/20/16 10:35 106 20 173/95 96 Room Air 10/20/16 08:36 36.5 111 20 171/84 99 10/20/16 08:00 96 Room Air 10/20/16 07:23 97 16 95 Room Air 10/20/16 03:54 36.7 99 20 155/81 100 Room Air 10/20/16 02:14 80 16 94 Room Air 10/20/16 00:17 36.8 86 20 143/78 96 Room Air 10/19/16 23:59 Room Air Physical Exam General Appearance: no apparent distress ENT: pharynx normal Neck: no JVD Respiratory/Chest: no respiratory distress, no accessory muscle use, + rales ( minimal, right base) Cardiovascular: regular rate, rhythm, no gallop, + systolic murmur (2/6 RUSB) Abdomen: normal bowel sounds, non tender, soft, no organomegaly Extremities: + pedal edema (1+ b/l) Neurologic/Psychiatric: alert, oriented x 3 Skin: + pertinent finding (port, right chest, clean) Laboratory Results Last 24 Hours Test 10/20/16 05:19 White Blood Count 6.26 K/uL Red Blood Count 2.54 M/uL Hemoglobin 8.5 g/dL Hematocrit 25.8 % Mean Corpuscular Volume 101.6 fL Mean Corpuscular Hemoglobin 33.5 pg Mean Corpuscular Hemoglobin Concent 32.9 g/dl Platelet Count 223 K/uL Mean Platelet Volume 10.6 fL Neutrophils (%) (Auto) 83.7 % Lymphocytes (%) (Auto) 9.3 % Monocytes (%) (Auto) 6.4 % Eosinophils (%) (Auto) 0.0 % Basophils (%) (Auto) 0.0 % Neutrophils # (Auto) 5.24 K/uL Lymphocytes # (Auto) 0.58 K/uL Monocytes # (Auto) 0.40 K/uL Eosinophils # (Auto) 0.00 K/uL Basophils # (Auto) 0.00 K/uL RDW Standard Deviation 60.3 fL RDW Coefficient of Variation 16.3 % Immature Granulocyte % (Auto) 0.6 % Immature Granulocyte # (Auto) 0.04 K/uL Red Blood Cell Morphology Unremarkable Sodium Level 139 mmol/L Potassium Level 5.1 mmol/L Chloride Level 108 mmol/L Carbon Dioxide Level 24 mmol/L Anion Gap 7.0 mmol/L Blood Urea Nitrogen 31 mg/dl Creatinine 1.60 mg/dl Est Creatinine Clear Calc Drug Dose 30.5 ml/min Estimated GFR () 37.4 Estimated GFR (Non- 32.3 BUN/Creatinine Ratio 19.5 Random Glucose 156 mg/dl Calcium Level 8.5 mg/dl Assessment and Plan 71yo female with: 1. RLL pneumonia - treating for gram negative etiology. Cont current IV abx ( zosyn/levaquin). Stop vanco. Can likely transition to po levaquin tomorrow. Day # 3 today. 2. asthma with exacerbation - improved. Stop IV solumedrol. Transition to po prednisone in am. 3. vitamin b12 deficiency - supplement b12 1000mcg IM daily while hospitalized , then change to PO vitamin B12 at discharge. May need shots resumed following her upcoming Whipple. 4. hypothyroidism - last 2 TSH levels were high; increase synthroid dosing to 137mcg daily. Repeat TSH in 6 weeks as outpatient. 5. pancreatic ca - s/p chemo in the recent past, and planning Whipple in future. Due for chemo on 10/21/[address] Ribera's direction, but doubt she is candidate to have it then due to resolving pneumonia. 6. HTN - uncontrolled. Resume lasix. Hold HCTZ and SHIRLEY due to acute kidney injury. Cautiously (in light of asthma) start metoprolol 25mg BID. 7. acute kidney injury - due to #1 and due to recent chemo in setting of #5. Despite 3 days of hydration the best Cr obtained is 1.6. stop fluids, repeat BMP in am. Cont to hold SHIRLEY. 8. 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 9. LE edema - dopplers neg for DVT. Resume lasix. 10. DVT proph - heparin 11. anemia - multifactorial - 2nd to recent chemo, the cancer itself, low B12, etc. serial cbc for stability progressing potential d/c tomorrow if Creatinine is stable?? daughter updated oncoming attending MD - patient requesting nebulizer machine for home use Continued [facility] stay due to: multiple IV medications needed Discharge planning: home
[2016-10-21 01:52] VITALS: PULSE 88; O2SAT 95
[2016-10-21] MEDS: IPRATROPIUM BROMIDE NEB SOLN 0.02% 2.5 ML VIAL INH SCH ×2 (01:52→07:10)
[2016-10-21] MEDS: LEVALBUTEROL 1.25MG/0.5ML NEB INH SCH ×2 (01:52→07:10)
[2016-10-21] MEDS: PIPERACILL/TAZOBAC IV 4.5 GM in DEXTROSE 5% 100ML 100 ML IV SCH ×2 (02:18→10:13)
[2016-10-21 03:40] VITALS: BP 130/73; PULSE 89; TEMP 36.6; O2SAT 97
[2016-10-21 05:36] LABS: BASO % 0.2 %; BASO ABS # 0.02 K/uL (0-0.2); EOS % 0.1 %; HEMATOCRIT 26.3 % (37-47); IG% 2.2 %; LYMPH % 14.7 %; LYMPH ABS # 1.42 K/uL (1.2-3.4); MEAN CELL VOLUME 102.7 fL (80-100); MEAN CORPUSCULAR HEMOGLOBIN 32.8 pg (25-34); MEAN CORPUSCULAR HGB CONC 31.9 g/dl (32-36); MEAN PLATELET VOLUME 10.2 fL (7.4-10.4); MONO % 16.4 %; NEUT % 66.4 %; PLATELET COUNT 218 K/uL (130-400); RED BLOOD COUNT 2.56 M/uL (4.2-5.4); WHITE BLOOD COUNT 9.63 K/uL (4.8-10.8)
[2016-10-21 06:01] LABS: CREATININE 1.7 mg/dl (0.60-1.20)
[2016-10-21 06:02] LABS: BUN/CREATININE RATIO 20.6 (10-20); CALCIUM 8.1 mg/dl (8.5-10.1); POTASSIUM 4.5 mmol/L (3.5-5.1)
[2016-10-21] MEDS: LEVOTHYROXINE 137 MCG TAB PO SCH (06:21)
[2016-10-21 07:10] VITALS: PULSE 83; O2SAT 97
[2016-10-21 07:32] VITALS: BP 147/85; PULSE 86; TEMP 36.5; O2SAT 98
[2016-10-21] MEDS: CEROVITE ADV FORMULA TAB PO SCH (08:09)
[2016-10-21] MEDS: METOPROLOL TARTRATE 25 MG TAB PO SCH (08:09)
[2016-10-21] MEDS: MULTIVITAMIN TAB PO SCH (08:09)
[2016-10-21] MEDS: GUAIFENESIN 600 MG TABCR PO SCH (08:09)
[2016-10-21] MEDS: FUROSEMIDE 20 MG TAB PO SCH (08:10)
[2016-10-21] MEDS: CYANOCOBALAMIN 1000 MCG/ML VIAL IM SCH (08:11)
[2016-10-21] MEDS: HEPARIN SOD 5000 UNIT/0.5 ML CARP SQ SCH (08:16)
--- NOTE | 2016-10-21 08:53 | Pharmacy Progress Note ---
Automatic IV to PO Conversion Date of Service: October 21, 2016. [facility] Pharmacy has identified patient as an appropriate candidate for automatic intravenous to oral conversion. Eligible medication: LVQ IV every 48 hours. Day # 4 of IV therapy. Subjective The patient is a 71 year old female admitted on October 18, 2016 at 22:21 for Pneumonia Involving Right Lung. Objective Vital Signs: Vital Signs Past 12 Hours Date Time Temp Pulse Resp B/P Pulse Ox O2 Delivery O2 Flow Rate FiO2 10/21/16 07:32 36.5 86 16 147/85 98 Room Air 10/21/16 07:10 83 16 97 Room Air 10/21/16 03:40 36.6 89 20 130/73 97 Room Air 10/21/16 01:52 88 16 95 Room Air 10/21/16 00:10 Room Air 10/20/16 23:56 36.7 87 20 168/93 96 Room Air White Blood Count: Test 10/21/16 05:12 White Blood Count 9.63 K/uL (4.8-10.8) Red Blood Count 2.56 M/uL (4.2-5.4) Hemoglobin 8.4 g/dL (12.0-16.0) Hematocrit 26.3 % (37-47) Mean Corpuscular Volume 102.7 fL (80-100) Mean Corpuscular Hemoglobin 32.8 pg (25-34) Mean Corpuscular Hemoglobin Concent 31.9 g/dl (32-36) Platelet Count 218 K/uL (130-400) Mean Platelet Volume 10.2 fL (7.4-10.4) Neutrophils (%) (Auto) 66.4 % Lymphocytes (%) (Auto) 14.7 % Monocytes (%) (Auto) 16.4 % Eosinophils (%) (Auto) 0.1 % Basophils (%) (Auto) 0.2 % Neutrophils # (Auto) 6.39 K/uL (1.4-6.5) Lymphocytes # (Auto) 1.42 K/uL (1.2-3.4) Monocytes # (Auto) 1.58 K/uL (0.11-0.59) Eosinophils # (Auto) 0.01 K/uL (0-0.5) Basophils # (Auto) 0.02 K/uL (0-0.2) Height (Feet): 4 Height (Inches): 11.00 Weight (Kilograms): 83.800 Type of Diet: Regular Assessment & Plan The Infectious Disease Society and the [place] [employer] recommend conversion to oral therapy once a patient is determined to be clinically stable and are able to tolerate oral medications. Patient identified as appropriate candidate for IV to PO conversion of LVQ based on the following criteria: * Afebrile for greater than or equal to 12 hours * Receiving oral/enteral medications and/or tolerating oral/enteral diet for greater than 24 hours * Improvement in clinical condition evidenced by .. WBC count of 9.6 10^3/uL and trending downward, resolution of signs/symptoms of illness * Hemodynamically stable or * Receiving oral medications and/or tolerating oral diet for greater than 24 hours * Patient does not meet criteria for use of intravenous proton pump inhibitors ( negative for GI bleed, hypersecretory conditions, GERD associated with erosive esophagitis & unable to take PO) Automatic conversion to: LVQ PO every 48 hours
[2016-10-21 09:09] LABS: COMPLETE YES; TEAR DROP CELLS OCCASIONAL
[2016-10-21 11:11] VITALS: BP 152/91; PULSE 76; TEMP 37; O2SAT 97
--- NOTE | 2016-10-21 11:42 | Discharge Summary ---
Discharge Summary Date of Service October 21, 2016. (Codi De León .DEBBIE) Discharge Summary Admission Date: October 18, 2016 at 22:21 Discharge Date: October 21, 2016 Discharge Disposition: Home Principal Diagnosis: RRL PNA Problems/Secondary Diagnoses: Right lower lobe pneumonia/SIRS/healthcare setting associated Asthma w/ exacerbation Pancreatic cancer Hypertension LE edema VAN on CKD stage III-IV Anemia Hypothyroidism Vitamin b12 deficiency Procedures: CHEST ONE VIEW PORTABLE HISTORY: Fever. Sepsis COMPARISON: None. FINDINGS: Right jugular Port-A-Cath appears to terminate within the mid to distal jugular vein. No pneumothorax. Trace bilateral pleural effusions. The heart is borderline enlarged. Slight prominence of the central markings, right greater the left. This may represent mild asymmetric congestive change. There is a hazy density to the right lung base. IMPRESSION: 1. Mild asymmetric congestive change and trace bilateral pleural effusions. 2. Hazy right basilar density which may represent atelectasis or pneumonia. 3. Only a small portion of the right jugular Port-A-Cath appears to be intravascular. This terminates at the mid to distal jugular vein. Electronically signed by: Hany Corey M.D. 10/18/2016 9:05 PM Dictated Date/Time: 10/18/2016 9:03 PM The status of this report is Signed. Draft = Not yet reviewed or approved by Radiologist. Signed = Reviewed and approved by Radiologist. BILATERAL LOWER EXTREMITY VENOUS DOPPLER CLINICAL HISTORY: Edema. Pancreatic cancer. COMPARISON STUDY: No previous studies for comparison. TECHNIQUE: Sonography of the deep venous system of the bilateral lower extremities was performed. Compression and augmentation were evaluated. FINDINGS: The bilateral common femoral, superficial femoral and popliteal veins were compressible. Augmentation was normal. Flow was shown within the deep calf vessels. Note was made of a 3.9 x 1.6 x 3.2 cm left popliteal cyst. IMPRESSION: 1. No evidence of deep venous thrombus within the bilateral lower extremities. 2. 3.9 x 1.6 x 3.2 cm left popliteal cyst. Electronically signed by: Florencio Marx M.D. 10/20/2016 6:57 AM Dictated Date/Time: 10/20/2016 6:56 AM The status of this report is Signed. Draft = Not yet reviewed or approved by Radiologist. Signed = Reviewed and approved by Radiologist. (Codi De León .ELTONC) Medication Reconciliation New Medications: Cyanocobalamin (B12) 1,000 Mcg Tab 1000 MCG PO DAILY for 30 Days, #30 TABS Ferrous Sulfate (Ferrous Sulfate) 325 Mg Tab 325 MG PO DAILY for 30 Days, #30 TABS Ipratropium-Albuterol (Duoneb) 3 Ml Nebu 1 TREATMENT INH Q4H PRN for SOB/Wheezing for 15 Days, #90 INHA Prednisone Tab (Prednisone) 10 Mg Tab 10 MG PO DAILY for 5 Days, #9 TAB 30 mg PO x1 day, 20 mg PO x2 days, 10 mg PO x2 days Levofloxacin (Levofloxacin) 750 Mg Tab 750 MG PO Q2D@1100 for 3 Days, #2 TAB Levothyroxine Sodium (Levothyroxine Sodium) 137 Mcg Tab 137 MCG PO DAILYBB for 30 Days, #30 TAB Metoprolol Tartrate (Lopressor) 25 Mg Tab 25 MG PO BID for 30 Days, #60 TAB Continued Medications: Furosemide (Lasix) 40 Mg Tab 20 MG PO QAM, TAB Lorazepam (Ativan) 0.5 Mg Tab 0.25-0.5 MG PO DAILY PRN for Anxiety, TAB Mometasone Furoate (Inhalation (Asmanex Twisthaler 120 Me) 220 Mcg/Inh Aer 1 PUFF INH BID PRN for Shortness of Breath Multivitamin (Multivitamin) Tab 1 TAB PO QAM, TAB Ocuvite Preservision (Ocuvite Preservision) 1 Tab Tab 2 TAB PO QAM, TAB Ondansetron Hcl (Zofran) 4 Mg Tab 4 MG PO TID PRN for Nausea, TAB Potassium Ext Rel (Klor-Con) 20 Meq Tabcr 20 MEQ PO QAM, TAB Prochlorperazine Maleate (Prochlorperazine Maleate) 10 Mg Tab 10 MG PO UD AT NIGHT AFTER CHEMO Discontinued Medications: Levothyroxine Sodium (Levothyroxine Sodium) 137 Mcg Tab 137 MCG PO 3XWK, TAB FRIDAY, FRIDAY, FRIDAY Levothyroxine Sodium (Levothyroxine Sodium) 125 Mcg Tab 125 MCG PO 4XWK for 90 Days, TAB 3 Refills FRIDAY, FRIDAY, FRIDAY, FRIDAY Valsartan/Hctz (Diovan Hct 160MG/12.5MG) 1 Tab Tab 0.5 TAB PO DAILY, TAB Referrals At Discharge Follow up Referrals: Family Practice Referral - Within 1 Week with Jennifer Hylton, DO Discharge Exam Review of Systems: Constitutional: No chills, No fatigue, No fever, No sweats, No weakness Respiratory: No cough, No shortness of breath Cardiovascular: No chest pain, No edema, No palpitations Abdomen: No constipation, No diarrhea, No nausea, No pain, No vomiting Musculoskeletal: No calf pain, No joint pain, No muscle pain, No swelling Genitourinary - Female: No dysuria, No hematuria, No urinary frequency Neurologic: No numbness/tingling, No weakness Psychiatric: No anxiety, No depression symptoms Hematologic / Lymphatic: No abnormal bleeding/bruising Integumentary: No itch, No new/changing skin lesions, No rash Physical Exam: General Appearance: no apparent distress, + obese Eyes: normal inspection, PERRL ENT: hearing grossly normal Neck: supple Respiratory/Chest: lungs clear, no respiratory distress, no accessory muscle use Cardiovascular: regular rate, rhythm, + systolic murmur Abdomen / GI: normal bowel sounds, non tender, soft Extremities: no calf tenderness, no pedal edema Neurologic/Psychiatric: alert, normal mood/affect, oriented x 3 Skin: normal color, warm/dry, no rash (Codi De León, PA-C) Hospital Course The patient is a 71-year-old female presents emergency department with a cough that began 6 days previously, but worsened over the last 24 hours she presently is undergoing chemotherapy for pancreatic cancer, and is undergoing Whipple procedure on November 19 at [facility] in [place]. When she was visiting her doctors in [place] yesterday, she was found to have an asymptomatic temperature, and was told to presents to urgent care or the ED for temperature lasted 24 hours. She did present to urgent care today prior to arrival, who referred her to the emergency department for assessment. She does have a history of asthma, and has been using her inhalers as directed, without significant improvement. Right lower lobe pneumonia/SIRS/healthcare setting associated: - Admitted to med/surg - Admitted on Vancomycin IV, Zosyn IV, Levofloxacin IV -- Transition to PO Levaquin at discharge to complete 7 days of treatment - Guaifenesin by mouth - BCx- NGTD - UCx- NG - MRSA swab- negative Asthma w/ exacerbation- RESOLVED: - Solu-Medrol IV, wean to PO Prednisone - DuoNebs PRN- discharge w/ nebulizer machine/treatments Pancreatic cancer- undergoing chemotherapy for 3 months: - Follows w/ Dr. Ribera- scheduled for chemo on 10/21- patient and daughter have been in contact w/ Dr. Ribera to reschedule - Whipple procedure on November 19 at [facility] in [place] Hypertension: - Held Diovan/HCTZ 160/12.5 one half tablet by mouth daily -- Discontinue Diovan/HCTZ- added Metoprolol 25 mg BID - Follow PRP - Recommend patient log BPs 2 times per day until follow-up with PCP to further manage/adjust BP medication LE edema: - Lasix 20 mg daily - Bilateral venous doppler- No evidence of DVT VAN on CKD stage III-IV, Cr. STABLE around 1.6-1.7: - Discontinue Diovan/HCTZ - Treated w/ IVF - PRP followed - Close f/u w/ PCP to monitor Anemia, ?secondary to b12 deficiency/iron deficiency: b12 and iron supplements Hypothyroidism: - Levothyroxine 125 g by mouth 4 times per week, and 137 g 3 times--> TSH levels were high; increase Synthroid dosing to 137 mcg daily - Repeat TSH in 6 weeks as outpatient Vitamin b12 deficiency: - Supplement b12 1000 mcg IM daily while hospitalized, then change to PO vitamin B12 at discharge DVT prophylaxis: Heparin Dispo: Discharge to home Total Time Spent: Greater than 30 minutes This includes examination of the patient, discharge planning, medication reconciliation, and communication with other providers. (Codi De León ., PA-C) PA Physician Supervision Note: I interviewed and examined the patient. Discussed with Codi PAIGE and agree with findings and plan as documented in the note. Any exceptions or clarifications are listed here: None Pt is feeling much better has no other complaints, wants to go home vitals stable lungs with basilar rales, car is regular Assesment resolving pneumonia, continue levaquin renal dosed follow up with Dr Ribera for ongoing chemo Documented By: Mahendra Herbert (Mahendra Herbert M.D.) Discharge Instructions Please refer to the electronic Patient Visit Report (Discharge Instructions) for additional information. (Codi De León ., PA-C) Follow-Up Please follow-up with your PCP within 5-7 days Please follow-up/keep all of your subspecialty appointments (Codi De León, PA-C) Additional Copies To Jennifer Hylton,
[2016-10-21] MEDS ORDERED: SYN137 PO (11:55)
[2016-10-21] MEDS ORDERED: IPRASOL4 INH (11:55)
[2016-10-21] MEDS ORDERED: CYAN100073 PO (11:55)
[2016-10-21] MEDS ORDERED: LPR25 PO (11:55)
[2016-10-21] MEDS ORDERED: LVQ750 PO (11:55)
[2016-10-21] MEDS ORDERED: FERR1TAB62 PO (11:55)
--- NOTE | 2016-10-21 12:00 | Discharge Instructions ---
Discharge Instructions Date of Service October 21, 2016. Admission Reason for Admission: Pneumonia Involving Right Lung Discharge Discharge Diagnosis / Problem: Pneumonia, right lung Discharge Goals Goal(s): Decrease discomfort, Improve function, Learn about illness, Diagnostic testing, Therapeutic intervention, Prevent Disease Progression Activity Recommendations Activity Limitations: resume your previous activity Instructions / Follow-Up Instructions / Follow-Up New/changed medications: 1. Levaquin 750 mg by mouth every other day until prescription is complete- medication to be taken on 10/22 and 10/24 This is an antibiotic used to treat pneumonia 2. Ferrous sulfate 325 mg by mouth once daily Iron supplement 3. B12 supplement once daily 4. DuoNeb treatments every 4 hours as needed for shortness of breath or wheezing 5. Metoprolol 25 mg by mouth twice per day This medication was added to control your blood pressures 6. STOP Diovan 7. Prednisone 30 mg by mouth on 10/22, 20 mg by mouth on 10/23 and 10/24, then 10 mg by mouth on 10/25 and 10/26 8. Synthroid INCREASED to 137 mcg by mouth once daily Resume all other regular home medications as prescribed Recommended you log your blood pressures 2 times per day until follow-up with PCP Please follow-up with your PCP within 5-7 days Please follow-up/keep all of your subspecialty appointments Current Hospital Diet Patient's current hospital diet: Regular Diet Discharge Diet Recommended Diet: Regular Diet Pending Studies Studies pending at discharge: no Laboratory Results Last 24 Hours Test 10/21/16 05:12 White Blood Count 9.63 K/uL Red Blood Count 2.56 M/uL Hemoglobin 8.4 g/dL Hematocrit 26.3 % Mean Corpuscular Volume 102.7 fL Mean Corpuscular Hemoglobin 32.8 pg Mean Corpuscular Hemoglobin Concent 31.9 g/dl Platelet Count 218 K/uL Mean Platelet Volume 10.2 fL Neutrophils (%) (Auto) 66.4 % Lymphocytes (%) (Auto) 14.7 % Monocytes (%) (Auto) 16.4 % Eosinophils (%) (Auto) 0.1 % Basophils (%) (Auto) 0.2 % Neutrophils # (Auto) 6.39 K/uL Lymphocytes # (Auto) 1.42 K/uL Monocytes # (Auto) 1.58 K/uL Eosinophils # (Auto) 0.01 K/uL Basophils # (Auto) 0.02 K/uL RDW Standard Deviation 62.6 fL RDW Coefficient of Variation 16.8 % Immature Granulocyte % (Auto) 2.2 % Immature Granulocyte # (Auto) 0.21 K/uL Nucleated RBC Absolute Count (auto) 0.02 K/uL Nucleated Red Blood Cells % 0.2 % Tear Drop Cells OCCASIONAL Sodium Level 141 mmol/L Potassium Level 4.5 mmol/L Chloride Level 109 mmol/L Carbon Dioxide Level 26 mmol/L Anion Gap 6.0 mmol/L Blood Urea Nitrogen 35 mg/dl Creatinine 1.70 mg/dl Est Creatinine Clear Calc Drug Dose 28.9 ml/min Estimated GFR () 34.8 Estimated GFR (Non- 30.0 BUN/Creatinine Ratio 20.6 Random Glucose 87 mg/dl Calcium Level 8.1 mg/dl Medical Emergencies . Who to Call and When: Medical Emergencies: If at any time you feel your situation is an emergency, please call 911 immediately. . Non-Emergent Contact Non-Emergency issues call your: Primary Care Provider . . "Provider Documentation" section prepared by Codi De León. . VTE Core Measure Inpt VTE Proph given/why not?: Unfractionated heparin SQ, SCD's
[2016-10-21] MEDS ORDERED: PRED10TA PO (12:05)
--- NOTE | 2016-10-21 12:16 | Clinical Documentation Query ---
CLINICAL DOCUMENTATION QUERY Daily progress notes by Dr. De lCid have been stating patient's pneumonia is likely HCAP and is being treated for Gram negative bacteria. This documentation is being left off the record at current time and if not carried to DC summary likely will not be captured by [facility] coding department. In your clinical opinion is this patient being managed for: ( ) Likely Gram Negative pneumonia in setting of HCAP in immunocompromised patient. ( ) Not Agree Please clarify and document your clinical opinion in the progress notes and discharge summary. Terms such as "probable", "suspected", "likely", "questionable", "possible", or "still to be ruled out" are acceptable. IF IN AGREEMENT, YOU MUST DOCUMENT ABOVE DIAGNOSTIC STATEMENT IN DAILY PROGRESS NOTES AND DISCHARGE SUMMARY. This document is not part of the patient's record. Thank You, Randell Jean RN [phone]
[2016-10-21 12:51] VITALS: BP 152/91; PULSE 76; TEMP 37; O2SAT 97
[2016-10-22] MEDS ORDERED: VANCOMYCIN TROUGH ONE (04:30)
[2016-10-22] MEDS ORDERED: LEVOFLOXACIN 750 MG TAB PO SCH (11:00)
== END 2016-10-21 13:45 | disposition home or self-care (01) | DRG 178 ==
LOC: ENRESERVTM → ENRESERVDT → C.EDB 20:06 → C.4E 22:21
PROVIDERS: ADMIT Hospitalist; ATTEND Internal Medicine
DX: J15.6 Pneumonia due to other Gram-negative bacteria (principal); N39.0 Urinary tract infection, site not specified; C25.0 Malignant neoplasm of head of pancreas; N17.9 Acute kidney failure, unspecified; N18.4 Chronic kidney disease, stage 4 (severe); J45.901 Unspecified asthma with (acute) exacerbation; E78.00 Pure hypercholesterolemia, unspecified; I10 Essential (primary) hypertension; E03.9 Hypothyroidism, unspecified; D64.9 Anemia, unspecified; E53.8 Deficiency of other specified B group vitamins

== ENCOUNTER → 2017-01-29 | Outpatient (CLI) | payer OTHER, MEDICARE ==
[~2017-01-29] MED LIST changes: +CYAN100073 PO; +FERR325T PO; +FURO40TA3 PO; -LEVO125T5 PO; -LEVO137T3 PO; +LPR25 PO; +LVQ750 PO; +SYN137 PO; -VALS160T58 PO
== END | disposition home or self-care (01) ==
LOC: C.LABPBG 13:10
PROVIDERS: ATTEND Family Medicine
DX: E03.9 Hypothyroidism, unspecified (principal)

== ENCOUNTER → 2018-01-12 | Outpatient (CLI) | payer OTHER, MEDICARE ==
[~2018-01-12] MED LIST changes: -CMP/10 PO; +FERR1TAB62 PO; -FERR325T PO; +POTA-639 PO; -POTA20TA16 PO; +PROC10TA5 PO
== END | disposition home or self-care (01) ==
LOC: C.LABPBG 12:28
PROVIDERS: ATTEND Family Medicine
DX: E78.5 Hyperlipidemia, unspecified (principal)

== ENCOUNTER 2018-10-07 09:56 | Inpatient (IN) ==
--- NOTE | 2018-09-29 15:02 | PAT Medication Instructions ---
Medication Instructions Date of Service September 29, 2018 Home Medications Calcium 600 + D(3) 2 tab PO QAM furosemide [Lasix] 20 mg PO QAM levothyroxine [Synthroid] 175 mcg PO QAM multivitamin 1 tab PO QAM potassium chloride 20 meq PO QAM losartan-hydrochlorothiazide 1 tab PO QAM Continue as directed alendronate 70 mg PO WK ASK your prescriber and surgeon aspirin [Aspir-81] 81 mg PO QAM STOP taking 2 weeks before surgery (or as soon as possible if surgery is within 2 weeks) PreserVision AREDS-2 1 tab PO BID DO NOT take the morning of surgery Calcium 600 + D(3) 2 tab PO QAM furosemide [Lasix] 20 mg PO QAM multivitamin 1 tab PO QAM potassium chloride 20 meq PO QAM losartan-hydrochlorothiazide 1 tab PO QAM Take morning of surgery With a small sip of water, OTHERWISE NOTHING TO EAT OR DRINK AFTER MIDNIGHT: levothyroxine [Synthroid] 175 mcg PO QAM Other Notes If you have any questions please call us at [phone] or [phone] or [phone] or [phone]
--- NOTE | 2018-09-30 09:05 | Anesthesiology Consultation ---
Date of Service September 30, 2018 Assessment & Plan (1) Encounter for pre-operative examination: Chart Review Chart Review: Acceptable Risk for Surgery and Patient seen in Pre Admission Testing Consults Requested none Teaching & Discussion Pre-Anesthesia Teaching/Discussion Notes: Instructed NPO after midnight before surgery, except medications with 15 cc of water. Medication instructions provided according to the PAT guidelines. History Surgery Operation Date: 10/07/18 07:30 Proposed Procedures p Left Video Assisted Thoracoscopy with Lung Biopsy - Glynn Cerrato MD, FACS Height/Weight Height: 4 ft 10 in Weight: 66.5 kg Allergies Allergy/AdvReac Type Severity Reaction Status Date / Time scopolamine Allergy Intermediate RASH Verified 09/29/18 09:32 simvastatin Allergy Intermediate RASH Verified 09/29/18 09:32 atorvastatin Allergy Mild RASH Verified 09/29/18 09:32 Medications Home Medications Medication Instructions Recorded Confirmed Last Taken Calcium 600 + D(3) 2 tab PO QAM 03/20/18 09/29/18 03/20/18 PreserVision AREDS-2 1 tab PO BID 03/20/18 09/29/18 03/20/18 alendronate 70 mg PO WK 03/20/18 09/29/18 Unknown aspirin [Aspir-81] 81 mg PO QAM 03/20/18 09/29/18 03/20/18 furosemide [Lasix] 20 mg PO QAM 03/20/18 09/29/18 03/20/18 levothyroxine [Synthroid] 175 mcg PO QAM 03/20/18 09/29/18 03/20/18 multivitamin 1 tab PO QAM 03/20/18 09/29/18 03/20/18 potassium chloride 20 meq PO QAM 03/20/18 09/29/18 03/20/18 losartan-hydrochlorothiazide 1 tab PO QAM 09/29/18 09/29/18 Unknown Past Medical History Medical History Asthma Hypertension Hypothyroidism Hypercholesterolemia (Resolved) Blood clot in vein Cardiac murmur PT HAS HAD CARDIAC WORK UP, NO FUTHER INTERVENTION Pancreatic cancer S/P WHIPPLE PROCEDURE Past Surgical History Surgical History History of arthroscopy RIGHT KNEE History of breast biopsy BILATERAL History of pancreatic surgery WHIPPLE PROCEDURE, [facility]. PT ALSO HAD RADIATION AND CHEMO (2016) History of vascular access device STILL PRESENT Hx of endoscopic retrograde cholangiopancreatography 08/07/16 - MAC #3, ETT #7.0, Grade 1 View S/P carpal tunnel release BILATERAL Past Anesthesia History No Hx of Anesthesia Complications and No Family Hx of Anesthesia Complications History of PONV No Motion Sickness Screening History of Motion Sickness: No Social History Smoking Status: Never smoker Do You Dip or Chew Tobacco: No Hx Alcohol Use: No Alcohol Intake Frequency Comment: 0 Hx Substance Use: No substance use type: does not use Exercise / Class Metabolic Activity II 4-5 Yardwork/Stairs/Walk up hill (Does alot of housework, yardwork, gardening. Able to easily climb FOS. Denies CP or SOB. ) Review of Systems Patient denies chest pain, shortness of breath, dyspnea on exertion, reflux, cough, palpitations. +Joint Pain (Right Knee) +Wheezing (Occasionally due to asthma) Physical Exam Vital Signs BP: 117/75 P: 79 R: 16 T: 98.8 SPO2: 99% ENMT Thyromental Distance: < 3.5 Finger Breadths (2) Mallampati Class: II Neck normal visual inspection and trachea midline; neck extension not limited Respiratory normal respiratory effort Auscultation: lungs clear to auscultation bilaterally Cardiovascular Rate/Rhythm: regular rate and regular rhythm Heart Sounds: + murmur (2/6 Systolic) Vessels: no carotid bruit Neurologic moves all extremities Psychiatric Orientation: alert and oriented x 3 Testing Electrocardiogram Date: 09/30/18 Findings: + NSR @ (72) Nonspecific T wave abnormality. When compared with ECG of 10/18/16, Ventricular rate has decreased by 48 BPM. Nonspecific T wave abnormality now evident in lateral leads. Chest X-Ray Date: 03/21/18 FINDINGS: Unchanged positioning of the right internal jugular Ugsbth-d-Voom catheter terminating superior to the right first rib, likely within the internal jugular vein. Cardiac silhouette is mildly enlarged, unchanged. New moderate right hemidiaphragmatic elevation. Subsegmental bibasilar opacities without pneumothorax, large pleural effusion or overt pulmonary edema. Degenerative changes of the shoulders and spine. IMPRESSION: 1. Unchanged positioning of the right internal jugular Inzlwe-r-Zpve catheter. 2. Cardiomegaly without overt pulmonary edema. 3. New moderate right hemidiaphragmatic elevation with subsegmental bibasilar opacities suggesting probable atelectasis. Echocardiogram Date: 03/21/18 EF: 55-60% LV Function: normal RWMA: + none Other Findings: + LVH (Mild) and + diastolic dysfunction (Grade I (Abnormal relaxation)) Moderate aortic valve sclerosis, without significant aortic valvular stenosis. There is mild mitral regurgitation. Other Testing EXAM: CT CHEST WO CONTRAST 08/24/18 FINDINGS LINES AND DEVICES: A right-sided MediPort is in place with tip in the right internal jugular vein, unchanged. LUNGS: Again noted is elevation of the right hemidiaphragm with right basilar atelectasis/ scarring. The multiple pulmonary nodules in both lungs have increased in size. For example, the largest nodule in the right lung, seen in the right middle lobe, now measures 11 mm, compared 8 mm previously. LARGE AIRWAYS: Within normal limits. PLEURA: No pleural effusions. VESSELS: Atherosclerotic changes. HEART: Normal size. No pericardial effusion. MEDIASTINUM AND MARGI: Within normal limits. CHEST WALL/SOFT TISSUES: Within normal limits. UPPER ABDOMEN: There is hepatic steatosis. BONES: No suspicious lesions are seen. There are extensive degenerative changes of the spine. Also again noted is a chronic L1 vertebral body compression fracture. IMPRESSION Interval enlargement of the metastatic pulmonary nodules. Laboratory Results 09/30/18 09:55 09/30/18 09:55 Blood Type O Positive 09/30/18 09:55 Antibody Screen NEGATIVE 09/30/18 09:55 PT 10.7 Seconds (9.0-12.0) 09/30/18 09:55 INR 1.0 (0.9-1.1) 09/30/18 09:55 APTT 25.4 Seconds (21.0-31.0) 09/30/18 09:55
[2018-09-30 11:06] LABS: Basophils # (auto) 0.01 K/uL (0-0.2); Basophils % (auto) 0.2 %; Eosinophils # (auto) 0.27 K/uL (0-0.5); Eosinophils % (auto) 4.5 %; Hematocrit (blood only) 37.2 % (37-47); Hemoglobin 11.8 g/dL (12.0-16.0); Lymphocytes # (auto) 1.11 K/uL (1.2-3.4); Lymphocytes % (auto) 18.5 %; Mean Corpuscular Hgb Conc 31.7 g/dL (32-36); Mean Corpuscular Volume 83.2 fL (80-100); Mean Platelet Volume 10.5 fL (7.4-10.4); Monocytes # (auto) 0.82 K/uL (0.11-0.59); Monocytes % (auto) 13.7 %; Neutrophils # (auto) 3.78 K/uL (1.4-6.5); Neutrophils % (auto) 63.1 %; Platelet Count 302 K/uL (130-400); RDW Coefficient of Variation 16.4 % (11.5-14.5); RDW Standard Deviation 49.7 fL (36.4-46.3); Red Blood Count 4.47 M/uL (4.2-5.4); White Blood Count 5.99 K/uL (4.8-10.8)
[2018-09-30 11:14] LABS: BUN Creatinine Ratio 15.9 (10-20); Calcium 8.7 mg/dl (8.5-10.1); Creatinine Clr Calc Pharmacy 39.1 ml/min; Est GFR (African American) 61.4; Potassium 4.1 mmol/L (3.5-5.1)
[2018-09-30 11:19] LABS: Partial Thromboplastin Ratio 0.9; Partial Thromboplastin Time 25.4 Seconds (21.0-31.0); Prothrombin Time 10.7 Seconds (9.0-12.0)
[~2018-10-07 09:56] MED LIST changes: -CYAN100073 PO; -FERR1TAB62 PO; -FURO40TA3 PO; -LORA-741 PO; -LPR25 PO; +LR 15ML/HR IV SCH; -LVQ750 PO; -MOME220A INH; -MULT-190 PO; -MULT-506 PO; -ONDA4TAB46 PO; -POTA-639 PO; -PROC10TA5 PO; -SYN137 PO
[2018-10-07] MEDS ORDERED: fentaNYL citrate 100 MCG/2 ML VIAL ONE (10:42)
[2018-10-07] MEDS ORDERED: MIDAZOLAM HCL 1 MG/ML 2ML VIAL ONE (10:42)
[2018-10-07] MEDS ORDERED: ATROPINE SULFATE 0.1 MG/ML 10ML SYR IV PRN (11:07)
[2018-10-07] MEDS ORDERED: fentaNYL citrate 100 MCG/2 ML VIAL IV PRN (11:07)
[2018-10-07] MEDS ORDERED: ePHEDrine sulfate 50 MG/ML AMP IV PRN (11:07)
[2018-10-07] MEDS ORDERED: ONDANSETRON INJ 2 MG/ML 2 ML VIAL IV PRN ×2 (11:07→14:18)
--- NOTE | 2018-10-07 11:26 | History & Physical Bridge Note ---
Date of Service October 07, 2018 History & Physical Bridge Note I have examined the patient, reviewed the History & Physical and in the interval since the performance of the History & Physical I have noted the following changes of clinical significance: no changes noted
[2018-10-07] MEDS ORDERED: BUPIVACAINE LIPOSOME 1.3% 266 MG/20 ML VIAL ONE (11:45)
[2018-10-07] MEDS ORDERED: SODIUM CHLORIDE 0.9% PF 50 ML VIAL ONE (11:45)
[2018-10-07] MEDS ORDERED: BUPIVACAINE 0.5 % 5 MG/1 ML MPF 30ML VIAL ONE (11:45)
[2018-10-07] MEDS ORDERED: CEFAZOLIN 250 MG/ML 1 GM VIAL ONE (12:18)
[2018-10-07] MEDS ORDERED: NEOSTIGMINE METHYLSULFATE 5 MG/5 ML SYR ONE (12:19)
[2018-10-07] MEDS ORDERED: ONDANSETRON INJ 2 MG/ML 2 ML VIAL ONE (12:19)
[2018-10-07] MEDS ORDERED: GLYCOPYRROLATE 0.2 MG/ML VIAL ONE (12:19)
[2018-10-07] MEDS ORDERED: ROCURONIUM BROMIDE 10 MG/ML 5 ML VIAL ONE (12:19)
[2018-10-07] MEDS ORDERED: LIDOCAINE HCL 2% 2 ML VIAL/AMP(20MG/ML) INFIL ONE (12:19)
[2018-10-07] MEDS ORDERED: PROPOFOL IV EMULSION 10 MG/ML 20 ML VIAL IV ONE (12:19)
[2018-10-07] MEDS ORDERED: DEXAMETHASONE SOD INJ 4 MG/ML VIAL ONE (12:19)
[2018-10-07] MEDS ORDERED: CEFAZOLIN 1000MG 1,000 MG/7.5 ML SYR IV SCH (12:30)
--- NOTE | 2018-10-07 12:53 | Post Operative Brief Note ---
Immediate Post Op Note v1 Date of Surgery October 07, 2018 Pre & Post Diagnosis Operation Date: 10/07/18 11:50 Pre-Op Diagnosis: Pulmonary Nodules Post-Op Diagnosis: Pulmonary Nodules Procedure Operation Date: 10/07/18 11:50 Actual Procedures p Left Video Assisted Thoracoscopy with Lung Biopsy left lower lobe X2. Glynn Cerrato MD, FACS Surgeon Glynn Cerrato MD, FACS Dimension Specification Inspector Rayshawn BRITTON Estimated Blood Loss 5 Findings Consistent with Post-Op Diagnosis Drains Chest Tube
[2018-10-07] MEDS ORDERED: METOCLOPRAMIDE HCL INJ 5 MG/ML 2 ML VIAL IV ONE (13:15)
--- NOTE | 2018-10-07 13:43 | XRay Report ---
XR chest 1V portable CLINICAL HISTORY: left lung wedge resection COMPARISON STUDY: Chest CT August 24, 2018. FINDINGS: Position of a right internal jugular [id number]-[id number]-[id number] is unchanged. Tip projects over the dist al right internal jugular vein. Postoperative findings within the left lung are noted. A left apical chest tube is in place. No pneumothorax is visualized. Elevation of the right hemidiaphragm is unchan ged. Several pulmonary nodules are better depicted on prior chest CT. There is no evidence for pulmon ginger edema. Mild bibasilar opacities favor atelectasis. IMPRESSION: Left apical chest tube in place. No pneumothorax. Electronically signed by: Florencio Marx M.D. 10/07/2018 1:41 PM
--- NOTE | 2018-10-07 13:45 | Anesthesiology Progress Note ---
Date of Service October 07, 2018 Anesthesia Post Procedure Vital Signs Vital Signs: Temp Pulse Pulse Resp BP BP Pulse Ox 10/07/18 13:35 97.9 F 63 16 154/73 H 100 10/07/18 13:25 70 16 158/66 H 100 10/07/18 13:15 76 18 138/55 L 100 10/07/18 13:06 98.1 F 83 20 148/70 H 99 10/07/18 10:20 98.4 F 86 18 153/81 H 96 Transfer of Care Handoff Completed per policy Notes Mental Status: alert / awake / arousable and participated in evaluation Patient Amnestic to Procedure: Yes Nausea / Vomiting: adequately controlled Pain: adequately controlled Airway Patency, RR, SpO2: stable & adequate BP & HR: stable & adequate Hydration State: stable & adequate Anesthetic Complications: no major complications apparent and Pt Satisfied with anesthetic care
[2018-10-07] MEDS ORDERED: MoRPHine SULFATE 2 MG/ML CARP IV PRN (14:18)
[2018-10-07] MEDS: METOCLOPRAMIDE HCL INJ 5 MG/ML 2 ML VIAL IV SCH ×2 (15:00→22:33)
[2018-10-07] MEDS: ACETAMINOPHEN 1,000 MG/100 ML VIAL IV SCH ×2 (15:00→21:17)
[2018-10-07] MEDS: D5W AND 1/2NSS 1,000 ML IV SCH (15:01)
[2018-10-07] MEDS: OXYCODONE HCL IR 5 MG TAB (IMMEDIATE RELEASE) PO PRN (18:46)
[2018-10-07] MEDS: DOCUSATE SODIUM 100 MG CAP PO SCH (20:54)
[2018-10-07] MEDS: NYSTATIN CR 15 GM TUBE EXT SCH (20:54)
--- NOTE | 2018-10-07 22:29 | Operative Report ---
DATE OF OPERATION: 10/07/2018 PREOPERATIVE DIAGNOSES: 1. Bilateral small pulmonary nodules. 2. History of Whipple procedure for carcinoma of the head of the pancreas. POSTOPERATIVE DIAGNOSIS: Probable metastatic pancreatic cancer to left lung. PROCEDURE: Left thoracoscopy with wedge resection biopsy x2. SURGEON: Glynn Cerrato MD. COMMUNICATIONS MAINTAINER: REBA Bryant (Mr. Wynne was present for the entire case and was instrumental in holding the camera). ANESTHESIA: General anesthesia, endotracheal intubation with a single lumen tube. SPECIFICS OF PROCEDURE AND FINDINGS: This is a delightful 73-year-old female who was found to have an adenocarcinoma and underwent chemotherapy and radiation and then a pancreatic gastroduodenectomy. She actually did well as she struggled a bit at first. She has done well, however, her CA-19 has been creeping up a bit and a CT scan showed that nodules which have been present preoperatively had grown a little larger. I saw in the office and elected to proceed with a biopsy at the request of Dr. Scott Ribera. On 10/07/2018, the patient was brought to the operating room and underwent an uncomplicated wedge resection at the apex of the left lower lobe in the superior segment and also of the mid portion near the fissure. Frozen section showed this to be adenocarcinoma, which is likely consistent with a pancreatic cancer; however, it is unclear whether this is definitely from the pancreas and will require immunohistochemical staining. The patient tolerated it quite well, was extubated in the room. DESCRIPTION OF PROCEDURE: The patient was brought to the operating room and laid supine position. General anesthesia induced and endotracheal intubation was performed with single lumen tube. The patient was turned in right lateral decubitus position. The left chest prepped and draped in usual sterile fashion. After appropriate timeout had been called and prophylactic antibiotics given, an Exparel exterior (266 mg of Exparel and 20 mL of solution with 30 mL of 0.5% bupivacaine and 250 mL of normal saline) were used to inject an area posterior to the scapula. A small incision was made and a 5 mm port was placed without difficulty. A 5 mm 30 degree scope was placed through this and it could be seen that we were in the pleural cavity and there really were no adhesions. Another 5 mm port was placed anterior to latissimus dorsi muscle, at about the fifth interspace then we put a 12 mm port above the diaphragm inferiorly. We then immediately noted the mass in the superior segment of the lower lobe on the left and I wedged this out with good margins. This was delivered off the field in an Endobag. This was sent for frozen section. While waiting for this, was another small mass noted just on the superior aspect of the mid portion of the lower lobe along the fissure. I wedged this out, although it was much smaller and we did not actually have a nodule palpated, but we sent this off for permanent sections. While waiting for the frozen section, Exparel block was performed. It should be noted that we injected each of the 3 ports prior to making incisions with Exparel solution then used Exparel to do an intercostal block under thoracoscopic guidance. We blocked the 2nd to the 11th rib. Frozen section came back as a metastatic adenocarcinoma. We started to complete the case. We inflated the lung, there was no air leak. A 24-Romansh chest tube was directed to the anterior thoracoscopy port and directed all the way up to the apex. 0 Vicryl was used to close the muscle layers of the 12 mm port and then 4-0 Monocryl was used in running subcuticular fashion to approximate the wound edges of all incisions. There was no air leak noted upon suctioning the chest tube. Sterile dressings were applied. The patient was extubated without difficulty and transported to the postanesthesia care unit in stable condition. Blood loss was negligible. I attest to the content of the Intraoperative Record and any orders documented therein. Any exception s are noted below.
[2018-10-08] MEDS: D5W AND 1/2NSS 1,000 ML IV SCH (04:50)
[2018-10-08] MEDS: ACETAMINOPHEN 1,000 MG/100 ML VIAL IV SCH (06:13)
[2018-10-08] MEDS ORDERED: LEVOTHYROXINE SODIUM 175 MCG TABLET PO SCH (06:30)
[2018-10-08] MEDS: METOCLOPRAMIDE HCL INJ 5 MG/ML 2 ML VIAL IV SCH (07:22)
--- NOTE | 2018-10-08 08:01 | XRay Report ---
XR chest 1V portable HISTORY: left lung wedge resection COMPARISON: Chest 10/07/2018. FINDINGS: Left-sided chest tube terminates in the left lung apex. There is a tiny left apical pneumot horax with a pleural gap of 3 mm. There is persistent elevation the right hemidiaphragm. Right jugula r Port-A-Cath terminates in the distal jugular vein. This remains unchanged. Bibasilar densities favo r subsegmental atelectasis. The heart remains mildly enlarged. IMPRESSION: Tiny left pneumothorax. The left-sided chest tube remains unchanged in position. Electronically signed by: Hany Corey M.D. 10/08/2018 7:59 AM
[2018-10-08] MEDS ORDERED: ENOXAPARIN INJ 40 MG/0.4 ML SYR SQ SCH (09:00)
[2018-10-08] MEDS ORDERED: LOSARTAN POTASSIUM 50 MG TAB PO SCH (09:00)
[2018-10-08] MEDS ORDERED: CEROVITE ADV FORMULA TAB PO SCH (09:00)
[2018-10-08] MEDS ORDERED: CALCIUM 600MG + VIT D 400 IU TAB PO SCH (09:00)
[2018-10-08] MEDS ORDERED: MULTIVITAMIN TAB PO SCH (09:00)
[2018-10-08] MEDS ORDERED: ASPIRIN 81 MG ECTAB PO SCH (09:00)
--- NOTE | 2018-10-08 09:13 | XRay Report ---
SINGLE VIEW CHEST CLINICAL HISTORY: Chest tube removal. Left-sided pulmonary resection. FINDINGS: An AP, portable, upright chest radiograph is compared to study performed earlier the same d ay 10/08/2018. Correlation is made with chest CT dated 08/24/2018. The examination is degraded by portab le technique and patient rotation. A right internal jugular central venous infusion port is unchange d in position. The heart is top normal for projection. The pulmonary vasculature is noncongested. The re are small pleural effusions with bibasilar atelectasis. There is likely a trace residual left apic al pneumothorax. The skeletal structures are osteopenic. The bony thorax is grossly intact. Degenerat ashia change and scoliosis are seen in the thoracic spine. Cholecystectomy clips are noted in the upper abdomen. IMPRESSION: 1. The left-sided chest tube has been removed. 2. There is likely a trace residual left apical pneumothorax. 3. Small pleural effusions with bibasilar atelectasis. Electronically signed by: Tano Hyde M.D. 10/08/2018 9:12 AM
[2018-10-08] MEDS: NYSTATIN CR 15 GM TUBE EXT SCH (09:21)
[2018-10-08] MEDS: DOCUSATE SODIUM 100 MG CAP PO SCH (09:21)
[2018-10-08] MEDS: OXYCODONE HCL IR 5 MG TAB (IMMEDIATE RELEASE) PO PRN (11:20)
[2018-10-08] MEDS ORDERED: ACETAMINOPHEN 325 MG TAB PO SCH (12:00)
[2018-10-08] MEDS ORDERED: FLUCONAZOLE 100 MG TAB PO ONE (14:00)
--- NOTE | 2018-10-08 23:40 | Discharge Summary ---
ADMISSION DIAGNOSES: 1. History of pancreatic cancer, status post Whipple procedure. 2. Enlarging pulmonary nodules bilaterally. DISCHARGE DIAGNOSIS: Metastatic adenocarcinoma with final pathology pending. HOSPITAL COURSE: Mrs. Barragan is a very pleasant 73-year-old female who was referred to Dr. Cerrato by Dr. Scott Ribera. The patient has a history of pancreatic cancer, having undergone a Whipple procedure several years ago. Dr. Ribera has been following Mrs. Barragan for her diagnosis of pancreatic cancer and she was noted to have pulmonary nodules that appeared to be enlarging by serial radiologic examinations. Because of this, a tissue diagnosis was requested. Dr. Cerrato saw and evaluated the patient as an outpatient and it appeared that she had pulmonary nodules bilaterally with nodules on the left side that appeared to be larger and more easily accessible to wedge resection. On date of admission, Dr. Cerrato took the patient to the operating room and performed a left video-assisted thoracoscopy with wedge biopsy of left-sided pulmonary nodules. Frozen resection revealed adenocarcinoma with the final pathology pending. The patient achieved adequate pain control and on postop day #1, her chest x-ray revealed no pneumothorax. Her chest tube did not have an air leak, so it was removed, and a post-pull chest x-ray only revealed a small left apical pneumothorax. The patient was deemed stable for discharge home on this date with all of her home medications being the same. She was given written and verbal instructions on followup, which will be approximately 1 week with our office calling her to arrange time and date of appointment and she will have a chest x-ray prior to this appointment. She was also given written and verbal instructions on wound care, being told to remove her dressings in 3 days and shower thereafter. She was also instructed not to drive until cleared to do so by Dr. Cerrato. She was provided with her office phone number and told to call should she have any questions.
== END 2018-10-08 11:50 | disposition home or self-care (01) | DRG 164 ==
LOC: ASU 09:56 → 3W 13:00

== ENCOUNTER 2023-06-28 18:01 | Observation (INO) ==
--- OUTSIDE RECORDS SUMMARY | 2023-06-28 18:08 | External Medical Summary | Summary of Care ---
Author Name Unknown Organization [facility] Address [address] [facility] [place] [address] Phone [phone] Care Team Providers Care Grinding Room Supervisor Name Role Phone Jennifer Hylton DO Primary Care Provider [phone]- [phone] Reason for Visit * Reason Onset Date Comments Appointment 06/12/2023 Patient called a t 8:05 AM on 06/12/22 and stated that she needs to cancel her for her labs on 06/16/23 for her labs which I did. She also needs to cancel her appointment for her treatment on 06/17/23 at 11:30 AM which I didn't cancel yet. Patient will call back when she is feeling better to reschedule those 2 appointments. Encounter Details Date Type Department Care Team ([facility] st Contact Info) Description 06/12/2023 Telephone Access Center, Central Region [address] [facility] *DO NOT REMOVE THIS DEPARTMENT* [place] [address] Jennifer Hylton DO [address] [facility] 2 [place] [address] Appointment (Patient called at 8:05 AM on ... Allergies Active Allergy Reactions Criticality Noted Date Comments Atorvastatin 06/12/2016 Scopolamine 06/13/2016 Simvastatin 06/06/2016 rash documented as of this encounter (statuses as of 06/24/2023) Medications Medication Sig Dispensed Refills Start Date End Date Status Multiple Vitamin (MULTI VITAMIN DAILY) TABS Take by mouth. 0 Active Multiple Vitamins-Minerals (PRESERVISION AREDS 2) Capsule Take 2 Capsules by mouth in the morning. 0 Active Aspirin 81 MG TabletIndications:t akes in the evening Take 1 Tablet by mouth in the morning. 0 Active Mometasone Furoate 220 MCG/INH Inhalation Aerosol Powder Breath ActivatedIndication s:as needed for allergy induced wheezing Inhale 1 Puff by mouth in the morning. 0 Active furosemide (LASIX) 40 MG TabletIndications:p t instructed by PCP to take 1/2 tab of 40mg due to hypotension Take 1 Tablet by mouth in the morning. 0 Active Respiratory Therapy Supplies (NEBULIZER AIR TUBE/PLUGS) [facility] Use as directed . 0 Active alendronate (FOSAMAX) 70 MG Tablet Take 1 Tablet by mouth once a week. 0 11/04/2017 Active levothyroxine (LEVOXYL) 175 MCG Tablet Take 1 Tablet by mouth daily first thing in the morning. 0 12/12/2017 Active Calcium Carb-Cholecalcifero l 600-200 MG-UNIT Oral Tablet Take 2 Tablets by mouth in the morning. 0 Active prochlorperazine (COMPAZINE) 10 MG TabletIndications:M alignant tumor of head of pancreas (HCC),Malignant neoplasm metastatic to lung, unspecified laterality (HCC) Take 1 Tab by mouth every 6 hours as needed for Nausea. 60 Tab 2 10/13/2018 Active Cholecalciferol (VITAMIN D) 1000 units Tablet Take 2 Tablets by mouth in the morning. 0 Active omeprazole (PRILOSEC) 20 MG CPDRIndications:Mal ignant tumor of head of pancreas (HCC),Malignant neoplasm of pancreas (HCC),Malignant neoplasm metastatic to lung (HCC) Take 1 Cap by mouth daily. 30 Cap 11 01/18/2019 Active metoprolol succinate XL (TOPROL XL) 25 MG TB24 Take 0.5 Tablets by mouth in the morning. 2 04/09/2019 Active amoxicillin (AMOXIL) 250 MG Capsule Take 1 Capsule by mouth in the morning and 1 Capsule at noon and 1 Capsule before bedtime. 0 Active Cyanocobalamin (VITAMIN B-12) 1000 MCG TabletIndications:M alignant neoplasm of pancreas (HCC) Take 1 Tab by mouth daily. 30 Tab 11 11/11/2019 Active Ferrous Sulfate 325 (65 Fe) MG Oral Tablet (Feosol) Take 1 tablet every other day 15 Tab 11 10/31/2020 Active Calcium 250 MG Oral Capsule Take by mouth 2 Capsules . Unsure of dose 0 Active Ondansetron HCl 8 MG Oral TabletIndications:M alignant tumor of head of pancreas (HCC),Malignant neoplasm metastatic to lung, unspecified laterality (HCC) Take by mouth 1 Tablet every 8 hours as needed for Nausea. 90 Tablet 3 11/13/2021 Active Potassium Chloride ER 20 MEQ Oral Tablet Extended Release Take by mouth 40 mEq in the morning. Prescribed by PCP- ON HOLD OF 03/18/22 . 0 Active Spironolactone 50 MG Oral Tablet (Aldactone) Take 1 Tablet by mouth every other day. Alternating with lasix 0 Active Levothyroxine Sodium 200 MCG Oral Tablet (Levoxyl) Take 1 Tablet by mouth daily first thing in the morning. (at least 30 min prior to breakfast or other meds) 0 Active Montelukast Sodium 10 MG Oral Tablet (Singulair) Take 1 Tablet by mouth at bedtime. 0 Active levETIRAcetam 500 MG Oral Tablet (Keppra) 1/2 tablet orally every twelve hours for two weeks then one tablet orally every twelve hours 60 Tablet 11 05/05/2023 Active LORazepam 0.5 MG Oral Tablet (Ativan)Indications :Malignant tumor of head of pancreas (HCC),Malignant neoplasm metastatic to lung, unspecified laterality (HCC),Anxiety Take 1 Tablet by mouth every 8 hours as needed for Anxiety. 30 Tablet 0 05/27/2023 Active carBAMazepine ER 100 MG Oral Tablet Extended Release 12 Hour (TEGretol-XR) Take 1 tablet daily for one week. Then increase to one tablet in the morning and one tablet at night there after. 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 Iron deficiency anemia 12/04/2021 Cirrhosis of liver with ascites 04/04/2020 Bilateral leg edema 04/04/2020 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) 12/14/2018 Malignant neoplasm metastatic to lung 10/13/2018 Malignant neoplasm of pancreas 02/11/2017 Superficial thrombophlebitis of left upper extre mity 11/26/2016 Lung nodules 09/16/2016 Encounter for antineoplastic chemotherapy 2016 Malignant tumor of head of pancreas 2016 Cancer Staging:Clinical stage from 2016:Stage IIB(T2, N1, M0) - Signed by Scott Ribera MD on 2016 documented as of this encounter (statuses as of 06/24/2023) Immunizations Name Administration Dates Next Due COVID-19 mRNA, LNP-s, No Pre serve, 2-Dose Series ([employer]) 04/25/2021,08/23/2020,08/02/2020 Pneumococcal Polysaccharide PPV23 (Pneumovax) 11/26/2016 Seasonal Influenza, Trivalen t, High Dose, No Preserve, IM 04/01/2021 documented as of this encounter Social History Tobacco Use Types Packs/Day Years Used Date Smoking Tobacco: Never Passive Smoke Exposure: Never Smokeless Tobacco: Never Alcohol Use Standard Drinks/Week Comments No 0 (1 standard drink = 0.6 oz pur e alcohol) Sex and Gender Information Value Date Recorded Sex Assigned at Not on file Gender Identity Not on file Sexual Orientation Not on file Job Start Date Occupation Industry Not on file Not on file Not on file documented as of this encounter Functional Status Functional Status Response Date of Assess ment Are you deaf or do you have serious difficulty h earing? No 11/20/2016 Are you blind or do you have serious difficulty seeing, even when wearing glasses? No 11/20/2016 Do you have serious difficul ty walking or climbing stairs? (5 years old or older) No 11/20/2016 Do you have difficulty dress ing or bathing? (5 years old or older) No 11/20/2016 Because of a physical, menta l, or emotional condition, do you have difficulty doing errands alone such as visiting a doctor s office or shopping? (15 years old or older) No 11/21/19 17 Cognitive Status Response Date of Assessm ent Because of a physical, menta l, or emotional condition, do you have serious difficulty concentrating, remembering, or making decisions? (5 years old or older) No 11/20/2016 documented as of this encounter Miscellaneous Notes * Telephone Encounter - Parul Jc RN - 06/24/2023 10:35 AM EST Patient rescheduled appt with Dr Ribera to 07/08, states it was rescheduled due to patient illness. Called patient. She has been following with PCP for a cold, PCP did resp panel and CXR, she has been on 2 different antibiotics. She states that she is starting to feel better now- her daughter had the same thing she has now and it took her daughter a month to start feeling better. Advised her to continue to follow with PCP, we will see her 07/08/23 as scheduled. She verbalized understanding. * Telephone Encounter - Hany Camarillo RN - 06/12/2023 8:51 AM EST Called patient to follow up regarding her symptoms. She was to have labs 06/16 with leucovorin/5FU treatment on 06/17. She has a chemo recheck scheduled for 06/24. She states she has been on antibiotics since last week. She denies any fevers, nausea, vomiting. Denies shortness of breath. Continues with cough/weakness. She called her PCP today for further instruction. Dr. Ribera- karime * Telephone Encounter - Melody Lambert OSA - 06/12/2023 8:19 AM EST Appts have been canceled. Clare-SAROJI * Telephone Encounter - Jem Carrion OSA - 06/12/2023 8:05 AM EST Cleo Mccray CRNP Patient called at 8:05 AM on 06/12/22 and stated that she needs to cancel her for her labson 06/16/23 for her labs which I did. She also needs to cancel her appointment for her treatment on06/17/23 at 11:30 AM which I didn't cancel yet. Patient will call back when she is feeling better to reschedule those 2 appointments. Please cancel the treatment appointment on 06/17/23. Thanks! documented in this encounter Plan of Treatment Upcoming Encounters Date Type Department Care Team (Late st Contact Info) Description 07/08/2023 8:45 AM EST Office Visit Hematology/Oncology [facility] [address] [place] [address] Scott Ribera MD [address] [place] [address] 07/12/2023 11:30 AM EST Imaging Radiology [address] [facility] [address] 07/15/2023 3:15 PM EST Imaging Radiology [address] [facility] [place] [address] 08/04/2023 9:20 AM EST Office Visit Neurology [facility] [address] [place] [address] Tim Sierra MD [address] [place] [address] Health Maintenance Due Date Last Done Comments DXA Scan 1945 DTaP,Tdap,and Td Vaccines (1 - Tdap) 1965 Hepatitis B (1 of 3 - Risk 3-dose series) 2006 Zoster Vaccines (1 of 2) 12/21/2012 10/26/2012 Depression Screening 01/27/2018 01/27/2017 Influenza Vaccine (FLU shot) (#1) 2023 04/01/2021, 03/11/2019, 03/21/2018, Additional history exists TSH 11/07/2023 11/06/2022, 02/07, 10/01/2021, Additional history exists Pneumococcal Vaccine: 65+ Years Completed 04/22/2018, 11/26/2016, 04/21/2013, Additional history exists COVID-19 Vaccine Completed 03/26/2023, , 05/06/2022, Additional history exists GARDASIL-HPV IMMUNIZATION SERIES Aged Out No longer eligible based on patient's age to complete this topic MENINGOCOCCAL (MENACTRA/MENVEO) Aged Out No longer eligible based on patient's age to complete this topic documented as of this encounter Medical Devices Implanted Type Area Underwater Photographer Device Identifier Shelf Expiration Date Model / Serial / Lot Port Implant W/8f Poly Cath - [id number] Implanted:Qty : 1 on 06/14/2016 by Jose Daniel Tavares MD at OR [facility] Right: Internal Jugular CR BARD : PERIPHERAL VASCULAR 12/04/2017 [id number] / / [id number] Port Power Mri W/8fr Cath - [id number] Implanted:Qty : 1 on 08/17/2021 by Jose Daniel Tavares MD at OR [facility] Left: Neck CR BARD : PERIPHERAL VASCULAR 11/06/2022 [id number] / / [id number] documented as of this encounter Advance Directives Latest Code Status on File Code Status Date Activated Date Inactivated Comments Full Code 11/19/2016 6:18 PM 11/26/2016 3:23 PM Question Answer Comments Discussion of Advance Direct marquita occurred with: Not Discussed Does the patient have a Living Will? No Does the patient have Health Care Power of Proof Inspector? No Code Status History Code Status Date Activated Date Inactivated Comments Full Code 11/19/2016 9:36 AM 11/19/2016 6:18 PM Question Answer Comments Discussion of Advance Direct marquita occurred with: Not Discussed Does the patient have a Living Will? No Does the patient have Health Care Power of Proof Inspector? No Care Teams Grinding Room Supervisor Relationship Specialty Start Date End Date Jennifer Hylton DO [address] [place] [address] PCP - General Family Medicine 05/24/16 documented as of this encounter
--- OUTSIDE RECORDS SUMMARY | 2023-06-28 18:09 | External Medical Summary | Summary of Care ---
Author Name Unknown Organization [facility] Address [address] [facility] [place] [address] Phone [phone] Care Team Providers Care Rn Clinical Resource Name Role Phone Brielleparish Jenniferparish Hodgson Primary Care Provider [phone]- [phone] Reason for Visit * Reason Onset Date Comments Appointment 06/14/2023 MRI Encounter Details Date Type Department Care Team (Late st Contact Info) Description 06/14/2023 Telephone Radiology [address] [facility] [place] [address] Catrina Hatfield, RT (R) Appointment (/MRI) Allergies Active Allergy Reactions Criticality Noted Date Comments Atorvastatin 06/12/2016 Scopolamine 06/13/2016 Simvastatin 06/06/2016 rash documented as of this encounter (statuses as of 06/14/2023) Medications Medication Sig Dispensed Refills Start Date [...] Active Respiratory Therapy Supplies (NEBULIZER AIR TUBE/PLUGS) MISC Use as directed . 0 Active alendronate [...] as of this encounter (statuses as of 06/14/2023) Active Problems Problem Noted Date Diagnosed Date [...] as of this encounter (statuses as of 06/14/2023) Immunizations Name Administration Dates Next Due COVID-19 mRNA, LNP-s, No Pre serve, 2-Dose Series ([employer]) 04/25/2021,08/23/2020,08/02/2020 Pneumococcal Polysaccharide PPV23 (Pneumovax) 11/26/2016 Seasonal [...] encounter Miscellaneous Notes * Telephone Encounter - Catrina Hatfield RT (R) - 06/14/2023 1:55 PM EST Name: Thania Barragan Do you have any of the following: Pacemaker, stents, heart valves, aneurysm clips? No Have you ever worked with metal or have you ever gotten metal in your eyes? No Have you had a colonoscopy in the last 30 days? No On dialysis? No Do you have any dermals or body piercing's? No Do you wear an insulin pump or diabetic monitor? No Knows to arrive at [facility] RT Olga (R) documented in this encounter Plan of Treatment Upcoming Encounters Date Type Department Care Team (Late st Contact Info) Description 06/16/2023 4:15 PM EST Imaging Radiology [address] [facility] [place] [address] 06/24/2023 10:45 AM EST Office Visit Hematology/Oncology [facility] [address] [place] [address] Scott Ribera MD [address] [facility] [place] [address] 06/26/2023 7:45 AM EST Imaging Radiology [address] [facility] [place] [address] 08/04/2023 9:20 AM EST Office Visit Neurology [facility] [address] [facility] [place] [address] Tim Sierra MD [address] [facility] [place] [address] Health Maintenance Due Date Last Done Comments [...] this encounter Medical Devices Implanted Type Area Administrative Asst Device Identifier Shelf Expiration Date Model / Serial / Lot Port Implant W/8f Poly Cath - [id number] Implanted:Qty : 1 on 06/14/2016 by Jose Daniel Tavares MD at OR [facility] [address] Right: Internal Jugular CR BARD : PERIPHERAL VASCULAR 12/04/2017 [id number] / / [id number] Port Power Mri W/8fr Cath - [id number] Implanted:Qty : 1 on 08/17/2021 by Jose Daniel Tavares MD at OR [facility] Left: Neck CR BARD : PERIPHERAL VASCULAR 11/06/2022 [id number] / / [id number] documented as of this encounter Advance Directives Latest Code Status on File Code Status Date Activated Date Inactivated Comments Full Code 11/19/2016 6:18 PM 11/26/2016 3:23 PM Question Answer Comments Discussion of Advance Direct marquita occurred with: Not Discussed Does the patient have a Living Will? No Does the patient have Health Care Power of Butadiene Convertor Operator? No Code Status History Code Status Date Activated Date Inactivated Comments Full Code 11/19/2016 9:36 AM 11/19/2016 6:18 PM Question Answer Comments Discussion of Advance Direct marquita occurred with: Not Discussed Does the patient have a Living Will? No Does the patient have Health Care Power of Butadiene Convertor Operator? No Care Teams Rn Clinical Resource Relationship Specialty Start Date End Date Jennifer Hylton DO [address] [facility] [address] [facility] [place] [address] PCP - General Family Medicine 05/24/16 documented as of this encounter
[2023-06-28] MEDS ORDERED: SODIUM CHLORIDE 0.9% 1,000 ML IV SCH (18:45)
[2023-06-28 18:58] LABS: Basophils # (auto) 0.01 K/uL (0.00-0.20); Basophils % (auto) 0.1 %; Eosinophils # (auto) 0.11 K/uL (0.00-0.50); Eosinophils % (auto) 1.5 %; Hemoglobin 12.2 g/dl (12.0-16.0); Immature Granulocytes # (auto) 0.02 K/uL (0.01-0.20); Immature Granulocytes % (auto) 0.3 %; Lymphocytes # (auto) 0.67 K/uL (1.20-3.40); Lymphocytes % (auto) 9.2 %; Mean Corpuscular Hemoglobin 28.6 pg (25.0-34.0); Mean Corpuscular Hgb Conc 32.1 g/dL (32.0-36.0); Mean Platelet Volume 11.1 fL (9.4-12.4); Monocytes # (auto) 1.09 K/uL (0.11-0.59); Neutrophils # (auto) 5.38 K/uL (1.40-6.50); Neutrophils % (auto) 73.9 %; Platelet Count 211 K/uL (130-400); RDW Coefficient of Variation 13.6 % (11.5-14.5); RDW Standard Deviation 44.2 fL (36.4-46.3); Red Blood Count 4.27 M/uL (4.20-5.40); White Blood Count 7.28 K/ul (4.8-10.8)
[2023-06-28 19:10] LABS: BUN Creatinine Ratio 10.4 (10-20); Bilirubin,Total 0.5 mg/dl (0.2-1.0); Calcium 8.5 mg/dl (8.6-10.3); Est GFR (African American) 44.2 ml/min; Est GFR (Non-African American) 38.1 ml/min; Globulin 3.1 gm/dl (2.5-4.0); Magnesium 1.9 mg/dl (1.7-2.4); Potassium 4.8 mmol/L (3.5-5.1); Total Protein 6.1 gm/dl (6.0-8.3)
--- NOTE | 2023-06-28 19:13 | XRay Report ---
XR chest 1V portable HISTORY: weakness COMPARISON: Chest 12/30/2022. FINDINGS: No pneumothorax. No pleural effusions. There are low lung volumes with a few bibasilar line ar densities consistent with subsegmental atelectasis. No new focal lung consolidations. No evidence for pulmonary edema. The heart is normal in size. A left jugular Port-A-Cath terminates in the SVC. A few scattered lung nodules again noted. These remain unchanged. There are suture material within the left lung. No acute fractures. Surgical clips within the right upper quadrant. IMPRESSION: 1. No acute process within the chest. 2. A few pulmonary nodules again noted which likely represent metastatic disease. ACT 112: Negative or not required by law. Electronically signed by: Hany Corey M.D. 06/28/2023 7:12 PM
[2023-06-28 19:17] LABS: Appearance Urine Clear (Clear); Bacteria Urine Automated Negative (Negative); Bilirubin Urine Negative (Negative); Blood Urine Negative (Negative); Color Urine Yellow; Epithelial Cell Urine Auto 20-30 /lpf (0-5); Glucose Urine UA Negative (Negative); Ketones Urine Negative (Negative); Leukocyte Esterase Urine 1+ (Negative); Nitrite Urine Negative (Negative); Protein Urine Negative (Negative); Specific Gravity Urine 1.014 (1.000-1.030); Urobilinogen Urine Negative (Negative); pH Urine 6.5 (4.5-7.5)
--- NOTE | 2023-06-28 19:17 | Emergency Department Note ---
Impression & Plan Syncope and collapse, Laceration of forehead, Skin tear of right upper extremity, History of pancreatic cancer ED Provider Note NAME: AMRITA LORENZO AGE: 78 SEX: Female INFORMANT: Patient and daughter ED PROVIDER(S): Tim Retana MD CHIEF COMPLAINT: Fall PLAN: Disposition: Admitted Outpatient prescription management: none Referral: None MEDICAL DECISION MAKING: Patient presented because of a fall. She has some weakness prior to the event and was feeling very shaky. She did strike her head on the right side and suffered a very superficial laceration over the right sikhism. This was closed with Dermabond by me. Patient had a small skin tear on the right elbow area which was treated with simple dressing. CT imaging, chest x-ray, laboratory testing, ECG and urinalysis ordered. Patient was hydrated. Patient appears to have a few new metastatic foci on CT imaging of the head. No trauma noted. Degenerative changes noted on the cervical spine. chest x-ray shows some pre- existing nodules without evidence of infiltrate. Patient does have a mild elevation of her cardiac troponin. Urinalysis is concerning for UTI. CBC was unremarkable. Patient's cardiac troponin is mildly elevated as is her alkaline phosphatase. Patient was given a dose of IV Rocephin. Patient will need further evaluation and management in the hospital. Consultation was made with Dr. Arias of the [facility] hospitalist service. She evaluated the patient in the ER and admitted her. Care/management discussed with: construction safety manager Level of care consideration(s): After review of the information above and other included data, I feel the patient requires escalation of care to admission Triage Nursing notes: reviewed and agree them. Vital Signs: reviewed and remarkable for mild hypertension Additional History obtained from: Patient's daughter Chronic Medical/Social Conditions affecting care: Metastatic pancreatic cancer Prior/ Outside/ External records reviewed: none Differential Diagnosis: SDH, SAH, complications of malignancy, infection, dehydration, metabolic abnormality, hypo/hyperglycemia, electrolyte disturbance, anemia, hypoxia, cardiac sources, intracerebral event, toxicologic, neurologic, as well as other pathologies. Diagnostics, independently interpreted by me: ECG: Twelve-lead ECG reveals a normal sinus rhythm with sinus arrhythmia at 95 bpm. Inferior Q waves present. Poor R wave progression anteriorly. No ST elevation. Cardiac Monitoring: Cardiac monitoring ordered by me: The patient was placed on continuous cardiac monitoring and observed. It revealed a normal sinus rhythm at 99 beats per minute without ectopy or evidence of dysrhythmia. Medical decision rules: none Imaging studies: CT scan of the head and cervical spine as above. New metastatic disease suggested. Stable chest x-ray with right-sided pulmonary nodules but no infiltrate. HPI: 78 year old Female arrives for evaluation of fall. This started just prior to arrival and is attributed to a syncopal episode. Patient states she was feeling weak and shaky. She walked to her kitchen table and was going to text her daughter. She was with her son about half hour prior. Patient then apparently had a syncopal episode. EMS was summoned. Exact downtime was not witnessed but several minutes per family likely. The patient also notes the following associated symptoms, nausea, generalized weakness, cough. Patient states she was recently tested for COVID and flu and this was negative. The patient has taken no medication for relieving factors. Current pain is rated as 0/10. Pt denies headache, fevers, chills, diaphoresis, visual changes, neck pain, chest pain, breathing difficulties, vomiting, abdominal pain, back pain, melena, hematochezia, urinary symptoms, current numbness, lymphadenopathy, rash, or other complaints. . PAST MEDICAL HISTORY: See Below, metastatic pancreatic cancer PA[facility]: [facility] SOCIAL HISTORY: See Below, retired HOME MEDICATIONS: See Below ALLERGIES: See Below VITALS: See Below PHYSICAL EXAMINATION: GENERAL: Awake, alert, well-appearing, in no distress HENT: Normocephalic, 1 cm superficial laceration to the right sikhism. Oropharynx unremarkable. EYES: Normal conjunctiva. Sclera non-icteric. PERRLA. EOMI. NECK: Inspection normal. Non-tender. Supple. No nuchal rigidity. FROM. No masses. RESPIRATORY: Clear to auscultation. No wheezes. No rales. Normal respiratory effort. CARDIAC: Normal rate. Normal rhythm. No murmurs. No rubs. Extremities warm and well perfused. Pulses equal. No JVD. GI: Soft, non-distended. No tenderness to palpation. No rebound or guarding. No masses. RECTAL: Deferred. MUSCULOSKELETAL: Left upper and both lower extremities are atraumatic. There is a mild skin tear noted to the lateral right elbow but no significant tenderness. Good range of motion at the elbow without pain. Remainder of the right upper extremity is atraumatic. Chest examination reveals no tenderness. The back is symmetrical on inspection without obvious abnormality. There is no CVA tenderness to palpation. No joint edema. LOWER EXTREMITIES: Calves are equal size bilaterally and non-tender. No edema. No discoloration. NEURO: Normal sensorium. No sensory or motor deficits noted. SKIN: No rash or jaundice noted. PROCEDURES: TISSUE ADHESIVE REPAIR: Location: Right sikhism Total length: 2 cm Complexity: Simple Verbal consent was obtained after the risks and benefits were explained, including but not limited to bleeding, scarring, infection, pain, and bone/joint/nerve damage. At this time, the risks of the procedure are less than the risks of NOT performing the procedure. A time out was taken and the correct patient and site identified. Copious irrigation was performed using saline and gauze the wound was explored for foreign bodies and none found. Debridement was not performed. The wound edges were approximated using gentle pressure and the tissue adhesive was applied in the standard fashion. Hemostasis and excellent approximation was achieved. Detailed wound care instructions and signs and symptoms of infection reviewed with the patient/family. No complications and the patient tolerated the procedure well. 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 s/p wedge resection, brain mets November 2022 s/p radiation Cervical facet syndrome Chronic kidney disease, stage III (moderate) Diverticulosis Eczema Osteoporosis Prediabetes Cardiac murmur echo 2017 (scanned in system) -- no block sawyer Hypothyroidism Hypertension Surgical History Status post surgery port placement S/P dilatation and curettage (2013) Status post lung surgery (10/07/18) L VATS wedge resection x 2, 10/07/18 History of arthroscopy of knee (2018) with medial meniscus repair; right knee H/O dilation and curettage 2013 Hx of endoscopic retrograde cholangiopancreatography 08/07/16 - MAC #3, ETT #7.0, Grade 1 View History of vascular access device History of breast biopsy BILATERAL History of pancreatic surgery (11/18/16) WHIPPLE PROCEDURE, [facility]. PT ALSO HAD RADIATION AND CHEMO (2017) History of lumpectomy of both breasts benign History of bilateral carpal tunnel release Family History Father Family history of malignant melanoma Hypertension Daughter Breast cancer, Onset Age: 48 Mother Rheumatoid arteritis Other No family history of adverse response to anesthesia Denies family history of Ovarian cancer Prostate cancer Myocardial infarction Colorectal cancer Social History Smoking Status: Never smoker Second Hand Exposure: Yes (hx); Do You Dip or Chew Tobacco: No; Hx Alcohol Use: No Hx Substance Use: No Preferred Language: Guamanian Communication Ability: Effective Visual Impairment: No Limitations Hearing Ability: Normal Technical Planner Required: No Beliefs That Will Affect Care: None marital status: Single Current Living Situation: Alone current occupational status: retired Feels Safe at Home: Yes Childhood Exposure to Second-Hand Smoke: No Diet: regular Diet Comment: regular caffeine: Yes during the past year weight has: remained stable Dental Care, Regularly: Yes Physical Activity Frequency: Daily Seatbelt Use: always Sunscreen Use: No Assistive Devices: Glasses Allergies Allergies Allergy/AdvReac Type Severity Reaction Status Date / Time doxycycline Allergy Intermediate Rash Verified 06/19/23 08:28 scopolamine Allergy Intermediate RASH Verified 05/20/23 08:38 simvastatin Allergy Intermediate RASH Verified 05/20/23 08:38 atorvastatin Allergy Mild RASH Verified 05/20/23 08:38 Home Meds Home Medications Medication Instructions Recorded Confirmed multivitamin (Daily Multi-Vitamin 1 tab PO QAM 11/06/18 05/20/23 tablet) mecobalamin (vitamin B12) 1,000 1,000 mcg PO DAILY 12/15/19 05/20/23 mcg chewable tablet lorazepam 0.5 mg tablet 0.5 mg PO Q8H PRN Anxiety 01/14/20 05/20/23 prochlorperazine maleate 10 mg 10 mg PO Q6H PRN Nausea 01/14/20 05/20/23 tablet montelukast 10 mg tablet 10 mg PO DAILY PRN allergies 01/25/21 05/20/23 (Singulair) calcium 600 mg capsule 1,200 mg PO QPM 02/09/22 12/12/23 cholecalciferol (vitamin D3) 50 2,000 units PO QAM 07/18/21 05/20/23 mcg (2,000 unit) capsule vitamins A,C,E-cxot-ytpett 4,296 2 cap PO DAILY 12/30/22 05/20/23 mcg-226 mg-90 mg capsule (PreserVision AREDS) Previous Rx's Medication Instructions Recorded aspirin 81 mg tablet,delayed 81 mg PO QAM #30 tabs 12/24/18 release (Aspir-) ipratropium 0.5 mg-albuterol 3 mg 3 ml inhalation Q6H PRN shortness 12/24/18 (2.5 mg base)/3 mL nebulization of breath or wheezing #180 mL soln ferrous sulfate 325 mg (65 mg 325 mg PO Q OTHER DAY #45 tabs 07/21/20 iron) tablet alendronate 70 mg tablet 70 mg PO WEEKLY #12 tabs 09/05/22 metoprolol succinate 25 mg 12.5 mg (1/2 x 25 mg) PO QPM #45 11/27/22 tablet,extended release 24 hr tabs walker (Ultra-Light Rollator misc) #1 ea 03/05/23 furosemide 40 mg tablet 40 mg PO QAM #90 tabs 03/31/23 omeprazole 20 mg capsule,delayed 20 mg PO QAM #90 caps 04/04/23 release amoxicillin 500 mg tablet 500 mg PO BID #20 tabs 06/13/23 levothyroxine 100 mcg tablet 100 mcg PO DAILY #30 tabs 06/13/23 Results & Data (ED) Vital Signs Vital Signs - 24 hr 06/28/23 18:07 06/28/23 18:20 06/28/23 18:21 Temperature 36.7 C Temperature Source Oral Pulse Rate 96 H 95 H 96 H Pulse Rate from SpO2 Sensor 94 H Respiratory Rate 17 21 Respiratory Effort / Characteristics Non-Labored Spontaneous Respiratory Depth Normal Respiratory Pattern Regular Blood Pressure 149/85 H Blood Pressure Mean 106 Pulse Oximetry 97 96 Oxygen Delivery Method Room Air Sepsis New/Unexplained Change in Mental Status No Sepsis Action Taken by Nursing No Action Required 06/28/23 18:30 06/28/23 18:40 06/28/23 18:43 Temperature Temperature Source Pulse Rate 95 H 95 H 92 H Pulse Rate from SpO2 Sensor 95 H 95 H Respiratory Rate 21 21 17 Respiratory Effort / Characteristics Respiratory Depth Respiratory Pattern Blood Pressure 146/82 H Blood Pressure Mean 103 Pulse Oximetry 94 95 95 Oxygen Delivery Method Room Air Sepsis New/Unexplained Change in Mental Status Sepsis Action Taken by Nursing 06/28/23 18:50 06/28/23 19:12 06/28/23 19:20 Temperature Temperature Source Pulse Rate 95 H 94 H 90 Pulse Rate from SpO2 Sensor 96 H 95 H 90 Respiratory Rate 24 16 Respiratory Effort / Characteristics Respiratory Depth Respiratory Pattern Blood Pressure Blood Pressure Mean Pulse Oximetry 96 95 95 Oxygen Delivery Method Sepsis New/Unexplained Change in Mental Status Sepsis Action Taken by Nursing 06/28/23 19:23 06/28/23 19:23 06/28/23 19:23 Temperature Temperature Source Pulse Rate 92 H Pulse Rate from SpO2 Sensor 92 H Respiratory Rate 19 Respiratory Effort / Characteristics Respiratory Depth Respiratory Pattern Blood Pressure 148/66 H 148/66 H Blood Pressure Mean 107 107 Pulse Oximetry 93 Oxygen Delivery Method Sepsis New/Unexplained Change in Mental Status Sepsis Action Taken by Nursing 06/28/23 19:30 06/28/23 19:40 06/28/23 19:50 Temperature Temperature Source Pulse Rate 90 89 90 Pulse Rate from SpO2 Sensor 91 H 88 90 Respiratory Rate 18 19 17 Respiratory Effort / Characteristics Respiratory Depth Respiratory Pattern Blood Pressure 133/66 Blood Pressure Mean 88 Pulse Oximetry 91 90 94 Oxygen Delivery Method Sepsis New/Unexplained Change in Mental Status Sepsis Action Taken by Nursing Laboratory Data 06/28/23 18:40 06/28/23 18:40 Lab Results 06/28/23 06/28/23 Range/Units 18:40 18:56 WBC 7.28 (4.8-10.8) K/ul RBC 4.27 (4.20-5.40) M/uL Hgb 12.2 (12.0-16.0) g/dl Hct 38.0 (37.0-47.0) % MCV 89.0 (80.0-100.0) fL MCH 28.6 (25.0-34.0) pg MCHC 32.1 (32.0-36.0) g/dL RDW Std Deviation 44.2 (36.4-46.3) fL RDW Coeff of Marito 13.6 (11.5-14.5) % Plt Count 211 (130-400) K/uL MPV 11.1 (9.4-12.4) fL Immature Gran % (Auto) 0.3 % Neut % (Auto) 73.9 % Lymph % (Auto) 9.2 % Morrison % (Auto) 15.0 % Eos % (Auto) 1.5 % Baso % (Auto) 0.1 % Neut # (Auto) 5.38 (1.40-6.50) K/uL Lymph # (Auto) 0.67 L (1.20-3.40) K/uL Morrison # (Auto) 1.09 H (0.11-0.59) K/uL Eos # (Auto) 0.11 (0.00-0.50) K/uL Baso # (Auto) 0.01 (0.00-0.20) K/uL Immature Gran # (Auto) 0.02 (0.01-0.20) K/uL Sodium 138 (136-145) mmol/L Potassium 4.8 (3.5-5.1) mmol/L Chloride 104 (98-107) mmol/L Carbon Dioxide 29 (21-32) mmol/L Anion Gap 5 (3-11) BUN 14 (6-23) mg/dl Creatinine 1.34 H (0.6-1.2) mg/dl Est Cr Clr Drug Dosing 24.0 ml/min Est GFR ( Amer) 44.2 ml/min Est GFR (Non-Af Amer) 38.1 ml/min BUN/Creatinine Ratio 10.4 (10-20) Glucose 100 H (70-99(Fasting)) mg/dl Calcium 8.5 L (8.6-10.3) mg/dl Magnesium 1.9 (1.7-2.4) mg/dl Total Bilirubin 0.5 (0.2-1.0) mg/dl AST 32 (13-39) U/L ALT 13 (7-52) U/L Alkaline Phosphatase 143 H (34-104) U/L Troponin I High Sens 21.9 H (0-14) pg/ml Total Protein 6.1 (6.0-8.3) gm/dl Albumin 3.0 L (3.4-5.0) gm/dl Globulin 3.1 (2.5-4.0) gm/dl Albumin/Globulin Ratio 1.0 (0.9-2) TSH 2.621 (0.300-4.500) uIu/ml Urine Color Yellow Urine Appearance Clear (Clear) Urine pH 6.5 (4.5-7.5) Ur Specific Stovall 1.014 (1.000-1.030) Urine Protein Negative (Negative) Urine Glucose (UA) Negative (Negative) Urine Ketones Negative (Negative) Urine Blood Negative (Negative) Urine Nitrite Negative (Negative) Urine Bilirubin Negative (Negative) Urine Urobilinogen Negative (Negative) Ur Leukocyte Esterase 1+ H (Negative) Urine WBC (Auto) 10-30 H (0-5) /hpf Urine RBC (Auto) 5-10 H (0-4) /hpf U Hyaline Cast (Auto) 1-5 (0-5) /lpf U Epithel Cells (Auto) 20-30 H (0-5) /lpf Urine Bacteria (Auto) Negative (Negative) Adenovirus (PCR) Not Detected (NotDetected) B. pertussis DNA (PCR) Not Detected (NotDetected) B.parapertussis DNA PCR Not Detected (NotDetected) C. pneumoniae DNA (PCR) Not Detected (NotDetected) Coronavirus OC43 (PCR) Not Detected (NotDetected) Coronavirus HKU1 (PCR) Not Detected (NotDetected) Coronavirus 229E (PCR) Not Detected (NotDetected) SARS-CoV-2 (PCR) Not Detected (NotDetected) Coronavirus NL63 (PCR) Not Detected (NotDetected) Human Metapneumovir PCR Not Detected (NotDetected) Influenza Type A (PCR) Not Detected (NotDetected) Influenza Type B (PCR) Not Detected (NotDetected) M. pneumoniae (PCR) Not Detected (NotDetected) Parainfluenza 1 (PCR) Not Detected (NotDetected) Parainfluenza 2 (PCR) Not Detected (NotDetected) Parainfluenza 3 (PCR) Not Detected (NotDetected) Parainfluenza 4 (PCR) Not Detected (NotDetected) RSV (PCR) Not Detected (NotDetected) Entero/Rhino (PCR) Not Detected (NotDetected) Administered Medications Sodium Chloride (Nss) 1,000 mls @ 125 mls/hr IV .Q8H PARIS Stop: 07/28/23 18:44 Last Admin: 06/28/23 19:25 Dose: 125 mls/hr Documented By: JESÚS Imaging Data Radiologist's Impression: Cervical Spine CT 06/28/23 18:[address] DOSE: HISTORY: fall, CHI TECHNIQUE: Multiaxial CT images of the cervical spine were performed and reformatted in the sagittal and coronal plane without the use of contrast. A dose lowering technique was utilized adhering to the principles of ALARA. COMPARISON: None. FINDINGS: A left jugular Port-A-Cath is partially visualized. There is mild reversal of the normal lordotic curvature. This is secondary to the moderate to severe degenerative changes and multilevel spondylolisthesis. Prevertebral soft tissues and the C1-C2 interval are intact. No acute fractures. IMPRESSION: No fractures within the cervical spine. ACT 112: Negative or not required by law. Electronically signed by: Hany Corey M.D. 06/28/2023 7:40 PM Chest X-Ray 06/28/23 18:29 XR chest 1V portable HISTORY: weakness COMPARISON: Chest 12/30/2022. FINDINGS: No pneumothorax. No pleural effusions. There are low lung volumes with a few bibasilar linear densities consistent with subsegmental atelectasis. No new focal lung consolidations. No evidence for pulmonary edema. The heart is normal in size. A left jugular Port-A-Cath terminates in the SVC. A few scattered lung nodules again noted. These remain unchanged. There are suture material within the left lung. No acute fractures. Surgical clips within the right upper quadrant. IMPRESSION: 1. No acute process within the chest. 2. A few pulmonary nodules again noted which likely represent metastatic disease. ACT 112: Negative or not required by law. Electronically signed by: Hany Corey M.D. 06/28/2023 7:[address] 06/28/23 18:[address] DOSE: 930.06 mGy.cm HISTORY: Known intracranial metastatic disease. fall, syncope, R impact TECHNIQUE: Multiaxial CT images of the head were performed without the use of intravenous contrast. Automated exposure control was utilized for this study. A dose lowering technique was utilized adhering to the principles of ALARA. Comparison: Head CT 12/30/2022. Brain MRI 12/30/2022. Findings: The paranasal sinuses and mastoid air cells are clear. The calvarium and skull base are intact. The ventricles are normal in size. No acute infarct or intracranial hemorrhage. Scattered small areas of vasogenic edema again noted within the cerebral hemispheres most pronounced on the left. This is similar to the prior studies and corresponds the patient's known intracranial metastatic lesions. There is a new small focus of vasogenic edema seen within the left posterior frontal lobe on image 19 there is also a new 12 mm hypodense focus within the right thalamus resulting in mild mass effect along the third ventricle. This favors progressive intracranial metastatic disease. Impression: 1. No acute infarct or acute intracranial hemorrhage. 2. Scattered intracranial metastatic disease is again noted. There is a new focal area of vasogenic edema within the left posterior frontal lobe and a new 12 mm hypodense focus within the right thalamus. This is consistent with progressive intracranial metastatic disease. The right thalamic lesion results in mass effect along the third ventricle. However, no hydrocephalus at this time. ACT 112: Negative or not required by law. Electronically signed by: Hany Corey M.D. 06/28/2023 7:47 PM Discharge Plan Visit Data Chief Complaint: Fall Stated Complaint: FALL, BRUISING TO EYE ED Provider: Tim Retana Discharge Problem: Syncope and collapse, Laceration of forehead, Skin tear of right upper extremity, History of pancreatic cancer Forms Stand Alone Forms: My [facility] Prescriptions Prescriptions: No Action alendronate 70 mg tablet 70 mg PO WEEKLY Qty: 12 3RF metoprolol succinate 25 mg tablet extended release 24 hr 12.5 mg PO QPM Qty: 45 3RF furosemide 40 mg tablet 40 mg PO QAM Qty: 90 1RF omeprazole 20 mg capsule,delayed release(DR/EC) 20 mg PO QAM Qty: 90 1RF levothyroxine 100 mcg tablet 100 mcg PO DAILY Qty: 30 2RF amoxicillin 500 mg tablet 500 mg PO BID Qty: 20 0RF aspirin [Aspir-81] 81 mg tablet,delayed release (DR/EC) 81 mg PO QAM Qty: 30 0RF ipratropium-albuterol 0.5 mg-3 mg(2.5 mg base)/3 mL solution for nebulization 3 ml inhalation Q6H PRN (Reason: shortness of breath or wheezing) Qty: 180 1RF montelukast [Singulair] 10 mg tablet 10 mg PO DAILY PRN (Reason: allergies) lorazepam 0.5 mg tablet 0.5 mg PO Q8H PRN (Reason: Anxiety) prochlorperazine maleate 10 mg tablet 10 mg PO Q6H PRN (Reason: Nausea) mecobalamin (vitamin B12) 1,000 mcg tablet,chewable 1,000 mcg PO DAILY ferrous sulfate 325 mg (65 mg iron) tablet 325 mg PO Q OTHER DAY Qty: 45 3RF (DME) Ultra-Light Rollator Misc See Rx Instructions .Route Qty: 1 0RF Rx Instructions: As directed multivitamin [Daily Multi-Vitamin] tablet 1 tab PO QAM cholecalciferol (vitamin D3) 50 mcg (2,000 unit) capsule 2,000 units PO QAM calcium 600 mg Capsule 1,200 mg PO QPM PreserVision AREDS 4,296 mcg-226 mg-90 mg Capsule 2 cap PO DAILY Referrals Referrals: Jennifer Hylton DO [Primary Care Provider] -
[2023-06-28 19:18] LABS: Troponin I High Sensitivity 21.9 pg/ml (0-14)
[2023-06-28 19:27] LABS: Thyroid Stimulating Hormone 2.621 uIu/ml (0.300-4.500)
[2023-06-28] MEDS ORDERED: cefTRIAXone SODIUM 2,000 MG/50 ML BAG IV STA (19:33)
--- NOTE | 2023-06-28 19:42 | CT Scan Report ---
CERVICAL SPINE CT CT DOSE: HISTORY: fall, CHI TECHNIQUE: Multiaxial CT images of the cervical spine were performed and reformatted in the sagittal and coronal plane without the use of contrast. A dose lowering technique was utilized adhering to e principles of ALARA. COMPARISON: None. FINDINGS: A left jugular Port-A-Cath is partially visualized. There is mild reversal of the normal lo rdotic curvature. This is secondary to the moderate to severe degenerative changes and multilevel spo ndylolisthesis. Prevertebral soft tissues and the C1-C2 interval are intact. No acute fractures. IMPRESSION: No fractures within the cervical spine. ACT 112: Negative or not required by law. Electronically signed by: Hany Corey M.D. 06/28/2023 7:40 PM
--- NOTE | 2023-06-28 19:49 | CT Scan Report ---
HEAD CT NONCONTRAST CT DOSE: 930.06 mGy.cm HISTORY: Known intracranial metastatic disease. fall, syncope, R impact TECHNIQUE: Multiaxial CT images of the head were performed without the use of intravenous contrast. A utomated exposure control was utilized for this study. A dose lowering technique was utilized adheri ng to the principles of ALARA. Comparison: Head CT 12/30/2022. Brain MRI 12/30/2022. Findings: The paranasal sinuses and mastoid air cells are clear. The calvarium and skull base are int act. The ventricles are normal in size. No acute infarct or intracranial hemorrhage. Scattered small areas of vasogenic edema again noted within the cerebral hemispheres most pronounced on the left. Thi s is similar to the prior studies and corresponds the patient's known intracranial metastatic lesions . There is a new small focus of vasogenic edema seen within the left posterior frontal lobe on image 19 there is also a new 12 mm hypodense focus within the right thalamus resulting in mild mass effect along the third ventricle. This favors progressive intracranial metastatic disease. Impression: 1. No acute infarct or acute intracranial hemorrhage. 2. Scattered intracranial metastatic disease is again noted. There is a new focal area of vasogenic e sarah within the left posterior frontal lobe and a new 12 mm hypodense focus within the right thalamus . This is consistent with progressive intracranial metastatic disease. The right thalamic lesion resu lts in mass effect along the third ventricle. However, no hydrocephalus at this time. ACT 112: Negative or not required by law. Electronically signed by: Hany Corey M.D. 06/28/2023 7:47 PM
--- NOTE | 2023-06-28 20:17 | History & Physical Report ---
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 Patient reports that she fell and hit her head on the stove. She denies chest pain, palpitations, cough or SOB. No concern for DVT. Uncertain if she had a seizure but there is no evidence of such. Patient hypotensive on arrival but now hemodynamically stable. In NSR. CT as above with new metastatic lesions in the left posterior frontal lobe and in right thalamus. Could be cause of patient's syncopal event? -Observation to medical with telemetry -Neuro checks with GCS q4hr given recent head trauma -Check Orthostatic vital signs x 1 -Check 2D echo -Check bilateral carotid dopplers (2) Pancreatic adenocarcinoma: Plan: Patient with adenocarcinoma of the pancreas which was diagnosed 7 years ago. She follows with Oncology. She cancelled her last chemotherapy session due to illness - is scheduled to see Oncology on 07/09/23 to discuss future treatments. She has had seizures in the past associated with her chemotherapy medications. She has been tried on several anti-epileptics and has been unable to tolerate them. She has been prescribed Carbamazepine but has not yet started it. -Hematology consultation appreciated (3) Metastasis to brain: Plan: Patient with known metastatic disease to the brain. CT this evening demonstrates new metastatic focus with vasogenic edema and mass effect -Dexamethasone 10mg IV now then 4mg IV q 6 hours -Hematology consultation appreciated (4) Chronic kidney disease, stage III (moderate): Plan: Near baseline -Avoid nephrotoxic agents -Renal dosing where needed (5) Hypertension: Plan: Chronic. Blood pressure improved after IVF. Presently stable. -Continue Metoprolol 12.5mg po qPM (6) Hypothyroidism: Plan: Chronic. Stable. TSH within normal range at 2.621 -Continue Synthroid F/E/N - Salilne lock. Encourage PO intake. Electrolytes WNL. Regular diet as tolerated Ppx - SCDs to bilateral LE Code - DNR/DNI discussed with patient at time of admission Dispo - Observation to medical with telemetry History of Present Illness Chief Complaint: syncope Primary Care Provider: DO Thania Escalera is a 78yo female with history of pancreatic cancer, Hypothyroidsm, CKD and Seizures presenting from home after a syncopal event. Patient had been in her usual state off health. Around 15:00 she became shaky. She sat down to rest then got up to go to the kitchen and text her daughter. She reports feeling warm and lightheaded then passing out. She was sitting on the chair and did hit her head on the stove. She was apparently out for 30-45 minutes. Her [id number] does not report any seizure-like activity, no tongue biting, no incontinence. When she woke up she denies confusion or post-ictal state. She denies chest pain, palpitations, SOB. Denies abdominal pain, nausea, vomiting, diarrhea or constipation. No leg pain or edema. No prior history of VTE. In the ER she was hypotensive on arrival which improved with IVF. ER Course: NSS at 125mL/hr Allergies Allergy/AdvReac Type Severity Reaction Status Date / Time doxycycline Allergy Intermediate Rash Verified 06/19/23 08:28 scopolamine Allergy Intermediate RASH Verified 05/20/23 08:38 simvastatin Allergy Intermediate RASH Verified 05/20/23 08:38 atorvastatin Allergy Mild RASH Verified 05/20/23 08:38 Home Medications Medication Instructions Recorded Confirmed Type multivitamin (Daily Multi-Vitamin 1 tab PO QAM 11/06/18 06/28/23 History tablet) aspirin 81 mg tablet,delayed 81 mg PO QAM #30 tabs 12/24/18 06/28/23 Rx release (Aspir-) mecobalamin (vitamin B12) 1,000 1,000 mcg PO DAILY 12/15/19 06/28/23 History mcg chewable tablet lorazepam 0.5 mg tablet 0.5 mg PO Q8H PRN Anxiety 01/14/20 06/28/23 History prochlorperazine maleate 10 mg 10 mg PO Q6H PRN Nausea 01/14/20 06/28/23 History tablet montelukast 10 mg tablet 10 mg PO DAILY PRN allergies 01/25/21 06/28/23 History (Singulair) calcium 600 mg capsule 1,200 mg PO QPM 07/18/21 06/28/23 History cholecalciferol (vitamin D3) 50 2,000 units PO QAM 07/18/21 06/28/23 History mcg (2,000 unit) capsule alendronate 70 mg tablet 70 mg PO WEEKLY #12 tabs 09/05/22 06/28/23 Rx metoprolol succinate 25 mg 12.5 mg (1/2 x 25 mg) PO QPM #45 11/27/22 06/28/23 Rx tablet,extended release 24 hr tabs vitamins A,C,G-fryt-dotkda 4,296 2 cap PO DAILY 12/30/22 06/28/23 History mcg-226 mg-90 mg capsule (PreserVision AREDS) michael (Ultra-Light Rollator misc) #1 ea 03/05/23 06/28/23 Rx furosemide 40 mg tablet 40 mg PO QAM #90 tabs 03/31/23 06/28/23 Rx omeprazole 20 mg capsule,delayed 20 mg PO QAM #90 caps 04/04/23 06/28/23 Rx release carbamazepine 100 mg 100 mg PO UD 06/28/23 06/28/23 History tablet,extended release,12 hr ferrous sulfate 325 mg (65 mg 325 mg PO DAILY 06/28/23 06/28/23 History iron) tablet levothyroxine 200 mcg tablet 200 mcg PO DAILYBB 06/28/23 06/28/23 History ondansetron HCl 8 mg tablet 8 mg PO Q8H PRN Nausea 06/28/23 06/28/23 History spironolactone 50 mg tablet 50 mg PO DAILY 06/28/23 06/28/23 History Past Med/Surg History Medical History Arthritis Asthma reports frequent use of rescue inh during spring season only Anemia Pancreatic adenocarcinoma (2015) s/p whipple procedure + chemo/radiation; +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 2018 s/p wedge resection, brain mets November 2022 s/p radiation Cervical facet syndrome Chronic kidney disease, stage III (moderate) Diverticulosis Eczema Osteoporosis Prediabetes Cardiac murmur echo 2017 (scanned in system) -- no taxonomist Hypothyroidism Hypertension Surgical History Status post surgery port placement S/P dilatation and curettage (2013) Status post lung surgery (10/07/18) L VATS wedge resection x 2, 10/07/18 History of arthroscopy of knee (2018) with medial meniscus repair; right knee H/O dilation and curettage 2013 Hx of endoscopic retrograde cholangiopancreatography 08/07/16 - MAC #3, ETT #7.0, Grade 1 View History of vascular access device History of breast biopsy BILATERAL History of pancreatic surgery (11/18/16) WHIPPLE PROCEDURE, [facility]. PT ALSO HAD RADIATION AND CHEMO (2017) History of lumpectomy of both breasts benign History of bilateral carpal tunnel release Family History Father Family history of malignant melanoma Hypertension Daughter Breast cancer, Onset Age: 48 Mother Rheumatoid arteritis Other No family history of adverse response to anesthesia Denies family history of Ovarian cancer Prostate cancer Myocardial infarction Colorectal cancer Social History Smoking Status: Never smoker Second Hand Exposure: Yes (hx); Do You Dip or Chew Tobacco: No; Hx Alcohol Use: No Hx Substance Use: No Preferred Language: Danish Communication Ability: Effective Visual Impairment: No Limitations Hearing Ability: Normal Engineering Manager Required: No Beliefs That Will Affect Care: None marital status: Single Current Living Situation: Alone current occupational status: retired Feels Safe at Home: Yes Childhood Exposure to Second-Hand Smoke: No Diet: regular Diet Comment: regular caffeine: Yes during the past year weight has: remained stable Dental Care, Regularly: Yes Physical Activity Frequency: Daily Seatbelt Use: always Sunscreen Use: No Assistive Devices: Glasses Review of Systems Review of Systems: All systems reviewed & are unremarkable except as noted in HPI & below Physical Exam Physical Exam: General: patient resting comfortably, NAD, non-toxic in appearance, AA&O x 4 Skin: warm, dry, intact, no rashes or lesions HEENT: ecchymosis over right eye, PERRL, EOMI, anicteric sclera, conjunctiva without injection, external ear normal to inspection and nontender, nares patent, moist mucus membranes, dentition intact, no oropharyngeal lesions, neck supple, trachea midline, no LAD, no thyromegaly, no JVD Heart: +S1/S2, regular, 3/6 HERNANDO across precordium, left chest wall port in place with no bleeding/erythema Lungs: equal air entry bilaterally, no rales/rhonchi/wheezes Abd: +BS, soft, NT/ND, no masses/organomegaly/ascites Ext: warm, 2+ pulses in UE/LE bilaterally, no clubbing/cyanosis or edema Neuro: nonfocal, patient AA&O x 4, speech intact, no facial droop, moving all extremities on command with equal strength 5/5 Results & Data Results & Data Vital Signs (Past 12 Hours) Vital Signs Temp Pulse Resp BP Pulse Ox O2 Del Method 06/28/23 19:50 90 17 94 06/28/23 19:40 89 19 90 06/28/23 19:30 90 18 133/66 91 06/28/23 19:23 148/66 H 06/28/23 19:23 148/66 H 06/28/23 19:23 92 H 19 93 06/28/23 19:20 90 16 95 06/28/23 19:12 94 H 95 06/28/23 18:50 95 H 24 96 06/28/23 18:43 92 H 17 95 Room Air 06/28/23 18:40 95 H 21 95 06/28/23 18:30 95 H 21 146/82 H 94 06/28/23 18:21 96 H 06/28/23 18:20 95 H 21 96 06/28/23 18:07 36.7 C 96 H 17 149/85 H 97 Room Air Laboratory Results Laboratory Results WBC 7.28 K/ul (4.8-10.8) 06/28/23 18:40 RBC 4.27 M/uL (4.20-5.40) 06/28/23 18:40 Hgb 12.2 g/dl (12.0-16.0) 06/28/23 18:40 Hct 38.0 % (37.0-47.0) 06/28/23 18:40 MCV 89.0 fL (80.0-100.0) 06/28/23 18:40 MCH 28.6 pg (25.0-34.0) 06/28/23 18:40 MCHC 32.1 g/dL (32.0-36.0) 06/28/23 18:40 RDW Std Deviation 44.2 fL (36.4-46.3) 06/28/23 18:40 RDW Coeff of Marito 13.6 % (11.5-14.5) 06/28/23 18:40 Plt Count 211 K/uL (130-400) 06/28/23 18:40 MPV 11.1 fL (9.4-12.4) 06/28/23 18:40 Immature Gran % (Auto) 0.3 % 06/28/23 18:40 Neut % (Auto) 73.9 % 06/28/23 18:40 Lymph % (Auto) 9.2 % 06/28/23 18:40 [place] % (Auto) 15.0 % 06/28/23 18:40 Eos % (Auto) 1.5 % 06/28/23 18:40 Baso % (Auto) 0.1 % 06/28/23 18:40 Neut # (Auto) 5.38 K/uL (1.40-6.50) 06/28/23 18:40 Lymph # (Auto) 0.67 K/uL (1.20-3.40) L 06/28/23 18:40 [place] # (Auto) 1.09 K/uL (0.11-0.59) H 06/28/23 18:40 Eos # (Auto) 0.11 K/uL (0.00-0.50) 06/28/23 18:40 Baso # (Auto) 0.01 K/uL (0.00-0.20) 06/28/23 18:40 Immature Gran # (Auto) 0.02 K/uL (0.01-0.20) 06/28/23 18:40 Sodium 138 mmol/L (136-145) 06/28/23 18:40 Potassium 4.8 mmol/L (3.5-5.1) 06/28/23 18:40 Chloride 104 mmol/L (98-107) 06/28/23 18:40 Carbon Dioxide 29 mmol/L (21-32) 06/28/23 18:40 Anion Gap 5 (3-11) 06/28/23 18:40 BUN 14 mg/dl (6-23) 06/28/23 18:40 Creatinine 1.34 mg/dl (0.6-1.2) H 06/28/23 18:40 Est Cr Clr Drug Dosing 24.0 ml/min 06/28/23 18:40 Est GFR ( Amer) 44.2 ml/min 06/28/23 18:40 Est GFR (Non-Af Amer) 38.1 ml/min 06/28/23 18:40 BUN/Creatinine Ratio 10.4 (10-20) 06/28/23 18:40 Glucose 100 mg/dl (70-99(Fasting)) H 06/28/23 18:40 Calcium 8.5 mg/dl (8.6-10.3) L 06/28/23 18:40 Magnesium 1.9 mg/dl (1.7-2.4) 06/28/23 18:40 Total Bilirubin 0.5 mg/dl (0.2-1.0) 06/28/23 18:40 AST 32 U/L (13-39) 06/28/23 18:40 ALT 13 U/L (7-52) 06/28/23 18:40 Alkaline Phosphatase 143 U/L (34-104) H 06/28/23 18:40 Troponin I High Sens 21.9 pg/ml (0-14) H 06/28/23 18:40 Total Protein 6.1 gm/dl (6.0-8.3) 06/28/23 18:40 Albumin 3.0 gm/dl (3.4-5.0) L 06/28/23 18:40 Globulin 3.1 gm/dl (2.5-4.0) 06/28/23 18:40 Albumin/Globulin Ratio 1.0 (0.9-2) 06/28/23 18:40 TSH 2.621 uIu/ml (0.300-4.500) 06/28/23 18:40 Urine Color Yellow 06/28/23 18:56 Urine Appearance Clear (Clear) 06/28/23 18:56 Urine pH 6.5 (4.5-7.5) 06/28/23 18:56 Ur Specific [place] 1.014 (1.000-1.030) 06/28/23 18:56 Urine Protein Negative (Negative) 06/28/23 18:56 Urine Glucose (UA) Negative (Negative) 06/28/23 18:56 Urine Ketones Negative (Negative) 06/28/23 18:56 Urine Blood Negative (Negative) 06/28/23 18:56 Urine Nitrite Negative (Negative) 06/28/23 18:56 Urine Bilirubin Negative (Negative) 06/28/23 18:56 Urine Urobilinogen Negative (Negative) 06/28/23 18:56 Ur Leukocyte Esterase 1+ (Negative) H 06/28/23 18:56 Urine WBC (Auto) 10-30 /hpf (0-5) H 06/28/23 18:56 Urine RBC (Auto) 5-10 /hpf (0-4) H 06/28/23 18:56 U Hyaline Cast (Auto) 1-5 /lpf (0-5) 06/28/23 18:56 U Epithel Cells (Auto) 20-30 /lpf (0-5) H 06/28/23 18:56 Urine Bacteria (Auto) Negative (Negative) 06/28/23 18:56 Adenovirus (PCR) Not Detected (NotDetected) 06/28/23 18:56 B. pertussis DNA (PCR) Not Detected (NotDetected) 06/28/23 18:56 B.parapertussis DNA PCR Not Detected (NotDetected) 06/28/23 18:56 C. pneumoniae DNA (PCR) Not Detected (NotDetected) 06/28/23 18:56 Coronavirus OC43 (PCR) Not Detected (NotDetected) 06/28/23 18:56 Coronavirus HKU1 (PCR) Not Detected (NotDetected) 06/28/23 18:56 Coronavirus 229E (PCR) Not Detected (NotDetected) 06/28/23 18:56 SARS-CoV-2 (PCR) Not Detected (NotDetected) 06/28/23 18:56 Coronavirus NL63 (PCR) Not Detected (NotDetected) 06/28/23 18:56 Human Metapneumovir PCR Not Detected (NotDetected) 06/28/23 18:56 Influenza Type A (PCR) Not Detected (NotDetected) 06/28/23 18:56 Influenza Type B (PCR) Not Detected (NotDetected) 06/28/23 18:56 M. pneumoniae (PCR) Not Detected (NotDetected) 06/28/23 18:56 Parainfluenza 1 (PCR) Not Detected (NotDetected) 06/28/23 18:56 Parainfluenza 2 (PCR) Not Detected (NotDetected) 06/28/23 18:56 Parainfluenza 3 (PCR) Not Detected (NotDetected) 06/28/23 18:56 Parainfluenza 4 (PCR) Not Detected (NotDetected) 06/28/23 18:56 RSV (PCR) Not Detected (NotDetected) 06/28/23 18:56 Entero/Rhino (PCR) Not Detected (NotDetected) 06/28/23 18:[address] 06/28/23 18:[address] DOSE: HISTORY: fall, CHI TECHNIQUE: Multiaxial CT images of the cervical spine were performed and reformatted in the sagittal and coronal plane without the use of contrast. A dose lowering technique was utilized adhering to the principles of ALARA. COMPARISON: None. FINDINGS: A left jugular Port-A-Cath is partially visualized. There is mild reversal of the normal lordotic curvature. This is secondary to the moderate to severe degenerative changes and multilevel spondylolisthesis. Prevertebral soft tissues and the C1-C2 interval are intact. No acute fractures. IMPRESSION: No fractures within the cervical spine. ACT 112: Negative or not required by law. Electronically signed by: Hany Corey M.D. 06/28/2023 7:40 PM Chest X-Ray 06/28/23 18:29 XR chest 1V portable HISTORY: weakness COMPARISON: Chest 12/30/2022. FINDINGS: No pneumothorax. No pleural effusions. There are low lung volumes with a few bibasilar linear densities consistent with subsegmental atelectasis. No new focal lung consolidations. No evidence for pulmonary edema. The heart is normal in size. A left jugular Port-A-Cath terminates in the SVC. A few scattered lung nodules again noted. These remain unchanged. There are suture material within the left lung. No acute fractures. Surgical clips within the right upper quadrant. IMPRESSION: 1. No acute process within the chest. 2. A few pulmonary nodules again noted which likely represent metastatic disease. ACT 112: Negative or not required by law. Electronically signed by: Hany Corey M.D. 06/28/2023 7:[address] 06/28/23 18:[address] DOSE: 930.06 mGy.cm HISTORY: Known intracranial metastatic disease. fall, syncope, R impact TECHNIQUE: Multiaxial CT images of the head were performed without the use of intravenous contrast. Automated exposure control was utilized for this study. A dose lowering technique was utilized adhering to the principles of ALARA. Comparison: Head CT 12/30/2022. Brain MRI 12/30/2022. Findings: The paranasal sinuses and mastoid air cells are clear. The calvarium and skull base are intact. The ventricles are normal in size. No acute infarct or intracranial hemorrhage. Scattered small areas of vasogenic edema again noted within the cerebral hemispheres most pronounced on the left. This is similar to the prior studies and corresponds the patient's known intracranial metastatic lesions. There is a new small focus of vasogenic edema seen within the left posterior frontal lobe on image 19 there is also a new 12 mm hypodense focus within the right thalamus resulting in mild mass effect along the third ventricle. This favors progressive intracranial metastatic disease. Impression: 1. No acute infarct or acute intracranial hemorrhage. 2. Scattered intracranial metastatic disease is again noted. There is a new focal area of vasogenic edema within the left posterior frontal lobe and a new 12 mm hypodense focus within the right thalamus. This is consistent with progressive intracranial metastatic disease. The right thalamic lesion results in mass effect along the third ventricle. However, no hydrocephalus at this time. ACT 112: Negative or not required by law. Electronically signed by: Hany Corey M.D. 06/28/2023 7:47 PM ECG Additional Comments: EKG reveals NSR at 95bpm, normal axis, JK=877, QRS=72, VFj=186, no acute ischemic changes. Similar to prior EKG from 12/2022 Code Status & VTE Plan VTE Prophylaxis Plan VTE Prophylaxis will be ordered: Yes PG Care Time/CCT Total # of Minutes Spent Total Time Spent with Patient: Total time spent is greater than 50% in coordination of care (as documented) at patient's floor/unit and/or counseling patient: Coding Level of Care Code 24310 INT INP/OBS CARE 3/75MIN Diagnoses Syncope and collapse R55 Pancreatic adenocarcinoma C25.9 Metastasis to brain C79.31 Chronic kidney disease, stage III (moderate) N18.3 Hypertension I10 Hypothyroidism E03.9
[2023-06-28 20:24] LABS: Adenovirus PCR Not Detected (NotDetected); Bordetella parapertussis PCR Not Detected (NotDetected); Bordetella pertussis PCR Not Detected (NotDetected); Chlamydia pneumoniae PCR Not Detected (NotDetected); Coronavirus 229E PCR Not Detected (NotDetected); Coronavirus CoV-2 (COVID19)PCR Not Detected (NotDetected); Coronavirus HKU1 PCR Not Detected (NotDetected); Coronavirus NL63 PCR Not Detected (NotDetected); Coronavirus OC43PCR Not Detected (NotDetected); Human Metapneumovirus PCR Not Detected (NotDetected); Influenza A PCR Not Detected (NotDetected); Influenza B PCR Not Detected (NotDetected); Mycoplasma pneumoniae PCR Not Detected (NotDetected); Parainfluenza Virus 1 PCR Not Detected (NotDetected); Parainfluenza Virus 2 PCR Not Detected (NotDetected); Parainfluenza Virus 3 PCR Not Detected (NotDetected); Parainfluenza Virus 4 PCR Not Detected (NotDetected); Respiratory Syncytial VirusPCR Not Detected (NotDetected); Rhinovirus/Enterovirus PCR Not Detected (NotDetected)
[2023-06-28] MEDS ORDERED: PROCHLORPERAZINE MALEATE 10 MG TAB PO PRN (21:39)
[2023-06-28] MEDS ORDERED: ACETAMINOPHEN 325 MG TAB PO PRN (21:39)
[2023-06-28] MEDS ORDERED: LORazepam 0.5 MG TAB PO PRN (21:39)
[2023-06-28] MEDS ORDERED: ONDANSETRON INJ 2 MG/ML 2 ML VIAL IV PRN (21:39)
[2023-06-28] MEDS ORDERED: DEXAMETHASONE SOD INJ 4 MG/ML VIAL IV STA (21:57)
[2023-06-29 04:07] LABS: Albumin Level 2.7 gm/dl (3.4-5.0); BUN Creatinine Ratio 13.2 (10-20); Bilirubin Direct 0.1 mg/dl (0-0.2); Bilirubin,Total 0.4 mg/dl (0.2-1.0); Calcium 8.4 mg/dl (8.6-10.3); Creatinine Clr Calc Pharmacy 28.2 ml/min; Est GFR (African American) 53.7 ml/min; Est GFR (Non-African American) 46.3 ml/min; Potassium 5.1 mmol/L (3.5-5.1); Total Protein 5.6 gm/dl (6.0-8.3)
[2023-06-29] MEDS: dexAMETHasone 4 MG in SYRINGE 0 ML IV SCH ×4 (05:27→23:27)
[2023-06-29] MEDS: LEVOTHYROXINE SODIUM 200 MCG TABLET PO SCH (05:28)
--- NOTE | 2023-06-29 07:07 | Electrocardiogram Report ---
Test Reason : Blood Pressure : / mmHG Vent. Rate : 095 BPM Atrial Rate : 095 BPM P-R Int : 166 ms QRS Dur : 072 ms QT Int : 350 ms P-R-T Axes : 004 -22 011 degrees QTc Int : 439 ms Normal sinus rhythm with sinus arrhythmia possible Inferior infarct , age undetermined Abnormal ECG When compared with ECG of 30-DEC-2022 07:45, No significant change was found Confirmed by Brian Faria ([id number]) on 06/29/2023 7:07:05 AM Referred By: REFERRED SELF Confirmed By:Stefano Faria
[2023-06-29] MEDS: ASPIRIN 81 MG ECTAB PO SCH (07:32)
--- NOTE | 2023-06-29 07:47 | Hospitalist Progress Note ---
Date of Service June 29, 2023 Assessment & Plan (1) Syncope and collapse: Plan: 78 F with PMH of metastatic pancreatic adenocarcinoma (brain, lung mets) and focal seizures (on Lamictal) who presented to the ED following a syncopal episode. Now admitted for ongoing neurologic workup of syncope. Syncope and collapse -Workup to date: EKG (NSR), CXR (no acute changes), troponin (minimally elevated, already downtrending), UA (1+ leuk est only, no bacteriuria, patient asymptomatic), CBC (unremarkable). -CT head: "New focal area of vasogenic edema within the left posterior frontal lobe and a new 12 mm hypodense focus within the right thalamusconsistent with progressive intracranial metastatic diseaseresults in mass effect along the third ventricleno hydrocephalus." No acute infarct or acute ICH noted. -S/p IV dexamethasone 10 mg on admission, IV Rocephin 2 g in the ED. -Suspect return of focal seizures in the setting of acute metastatic changes to the brain, (see below: focal seizure). * Admit to [facility] telemetry for observation * Syncope/stroke workup ongoing: bilateral carotid Doppler (pending), echocardiogram (pending) * Neurochecks with GCS every 4 hours * Orthostatic vitals check Pancreatic Adenocarcinoma (brain, lung mets) -Metastatic (brain, lungs). Follows with Dr. Ribera (oncology) and Dr. Call (radiation oncology), both at [facility]. -Chemotherapy currently on hold due to incidence of focal seizures (see below). Next appointment x 1 week (07/09) to evaluate for possible chemotherapy restart. -S/p IV dexamethasone 10 mg on admission due to new vasogenic edema. -2016: Initially diagnosis, s/p chemotherapy, Whipple procedure (2016), additional radiation + chemotherapy. -2019: pulmonary nodules confirmed positive for metastatic disease s/p wedge res ection (x 2) in October 2018. -2022: multiple brain mets in November, also s/p radiation, chemotherapy (held, as detailed above). * Hematology consult: Recommend MRI brain, given new CT head findings now pen ding * Continue IV dexamethasone 4 mg every 6 hours continue steroids at discharge until next neurology appointment if MRI shows significant vasogenic edema Focal Seizures -Recently diagnosed 2022. Managed by Dr. Tim Sierra (neurologist at [facility]). Currently asymptomatic. -Per patient (confirmed on review of neurology visit note), was initially on Keppra (stopped after 2 weeks d/t poor tolerance), then carbamazepine (also poorly tolerated). -Was to start Lamictal but was waiting to complete abx course before starting- recent infection. -Suspect patient's syncopal episode due to focal seizure, given similar prodromal presentation (bilateral paresthesias of the hands). * Follow-up with outpatient neurology before discharge (Since she did not start Lamictal prior to this episode, contact outpatient neurologist BEFORE DISCHARGE (Dr. Tim Sierra-[facility]), on whether or not to discharge her on Lamictal before her next follow-up appointment) * Awaiting brain MRI findings, as above Chronic Kidney Disease stage III -GFR near baseline on admission labs. * Continue to monitor * Avoid nephrotoxic agents Hypertension -Chronic. Managed on metoprolol succinate 12.5 mg every evening. Stable. * Continue home metoprolol Hypothyroidism -Chronic. On levothyroxine 200 mcg daily. TSH on admission normal (2.621). Stable. * Continue home levothyroxine Anxiety -Chronic. Takes lorazepam 0.5 mg as needed. PDMP reviewed. * Continue lorazepam 0.5 mg every 8 hours as needed Pedal Edema -Chronic, albeit intermittent. Takes Lasix 40 mg only as needed. -No edema at present. * Monitor on exam daily; consider spot IV Lasix (20 to 40 mg) if needed. Otherwise, continue to hold. Code: DNR/DNI Dispo: Med-Surg telemetry FEN/GI: Regular DVT Prophylaxis: Lovenox 30 mg q24h PT/OT: No Consults: Hematology-Oncology Case Management: No Addendum 1. MRI brain: No evidence of infarct, ICH, or hydrocephalus. -2 new lesions since last MRI brain (December 30, 2022): 2 cm lesion in the left frontal lobe (with moderate associated vasogenic edema), and a 1 cm lesion within the right thalamus (with mild vasogenic edema). -New changes consistent with metastatic progression, per radiology report. -Discussed with oncologist, who agreed with continuing steroids at discharge until follow-up appointment with outpatient oncologist (Dr. Scott Ribera), and radiation oncologist (Dr. Pedro Call) at [facility] next week. -Will likely discharge on p.o. dexamethasone: 4 mg daily x 7 days, then slow taper over weeks. 2. Stroke workup now complete: Bilateral carotid Doppler: Negative for stenosis or occlusion. Echocardiogram: EF 60 to 65%, normal LV wall motion. -Discontinuing neurochecks (2) Pancreatic adenocarcinoma: (3) Focal seizure: (4) Chronic kidney disease, stage III (moderate): (5) Hypertension: (6) Hypothyroidism: (7) Osteoporosis: (8) Anxiety: Admission and Anticipated Discharge Date Admission Date: June 28, 2023 Supervising Physician Co-Signing Physician Notes I personally examined the patient and verified all bee points of history and exam, discussed case, and agree with decision making with Dr Knapp feels good now. worried about going home. updated pt/dtr together with resident physician answered all questions to the best of our ability and to their satisfaction vitals noted nad heent nc at mmm breathing unlabored no accessory muscles good effort skin no rashes no pallor or icterus LOC - seizure vs syncope both plausible, and both have some supporting evidence but suspect seizure: -evidence in favor of syncope - prodrome, on diuretics, common etiology, no clear stigmata of seizure (such as tongue biting, loss of bowel/bladder, clear post ictal period) -evidence in favor of seizure - her prodrome matched what she's had before witnessed seizures, time unconscious (without postconcussive symptoms to suggest concussion as reason for prolonged LOC), new mets with edema, was sitting when it occurred, (and it's possible that her post ictal period was encompassed in what was described as prolonged LOC - unclear how long she was alone before help arrived) --->overall plan: steroids for vasogenic edema, radiation oncology to eval for possible XRT of new lesions, anticonvulsant to reduce likelihood of seizure ---> 06/30 pt would prefer if our team reaches out to her oncology/radiation oncology/neurology (all [facility] locally) to confirm plans of steroids/anticonvulsants ---> dtr notes thus far anticonvulsants have led to severe sedation/grogginess and wonder if she would be better in overall quality of life not having anticonvulsant ADRs but risking seizures -- we discussed that in the big picture this is the right way to view risk/benefits but since anticonvulsants have a lot of difference in side effect profiles right now would be too soon to determine that all anticonvulsants would be intolerable otherwise as above, DVT proph w lovenox Subjective Patient seated comfortably in chair eating breakfast on arrival. Denies acute events overnight. Slept well. She denies any paresthesias, or focal facial/extremity weakness. Further denies dizziness, weakness, headache, shortness of breath, or chest pain. Ambulating in room without difficulty. Asked to clarify admission HPI: She recalls that her fingers began feeling "off." While seated in her chair, she attempted to text her daughter, who lives nearby, for help, but was unable to due to the feeling in her fingers. This was the last thing she remembered before she passed out. She is unsure for how long she was unconscious, but woke up to her son, [id number], daughter, and EMT in her home. Denies any postictal confusion, tongue laceration, or voiding. She believes she hit her head on her refrigerator which was right by her chair in the living room. She has a history of focal seizures, for which she follows Dr. Tim Sierra of [facility] she reports 2 prior seizure episodes, both of which began with a similar abnormal sensation in her fingers (last episode in November, prior to stopping of chemotherapy). Both times, she did not have any postictal symptoms. She was started on Keppra, then carbamazepine, both of which she tolerated poorly, before being prescribed Lamictal. However, she has yet to start Lamictal because she had an acute infection and wanted to complete her antibiotics course first. Review of Systems Review of Systems: All systems reviewed & are unremarkable except as noted in HPI & below Physical Exam Physical Exam: General: Pleasant, appearing elderly woman in no acute distress. 2 cm laceration at right advent dressed with Dermabond. HEENT: PERRLA. Normal conjunctiva, anicteric sclera. Oropharynx normal. Respiratory: Normal respiratory effort, CTABL. Cardiovascular: Regular rate and rhythm. 2/6 murmur heard loudest at LUSB. No gallops or rubs. No pedal edema. GI: Nontender x4 quadrants Neuro: Alert and oriented x3. Results & Data Results & Data Vital Signs (Past 12 Hours) Vital Signs Temp Pulse Pulse Resp BP BP Pulse Ox 06/29/23 06:57 76 06/29/23 04:03 36.7 C 70 16 109/65 96 06/28/23 23:39 36.7 C 85 18 125/73 96 06/28/23 21:44 90 06/28/23 21:43 36.8 C 92 H 16 133/77 94 06/28/23 21:00 94 H 20 123/61 93 06/28/23 20:41 130/72 06/28/23 20:26 94 06/28/23 20:00 90 23 131/66 94 06/28/23 19:50 90 17 94 O2 Del Method 06/29/23 06:57 06/29/23 04:03 Room Air 06/28/23 23:39 Room Air 06/28/23 21:44 06/28/23 21:43 Room Air 06/28/23 21:00 06/28/23 20:41 06/28/23 20:26 06/28/23 20:00 06/28/23 19:50 Resident Activity Tracking Resident Involvement: Resident Care Provided Care Provided: Adult Hospital Medicine
--- NOTE | 2023-06-29 08:11 | Oncology Consultation ---
Date of Consultation June 29, 2023 Assessment & Plan (1) Pancreatic adenocarcinoma: (2) Metastasis to brain: Plan Very pleasant 78-year-old female metastatic adenocarcinoma of the pancreatic gland for which she has been on 5-FU/leucovorin infusions every 3 weeks under the care of Dr. Ribera at [facility]. Also has brain metastasis for which she is s/p SRS in December,. Presented with syncopal episode possibly due to seizure. CT head on admission concerning for disease progression with new focal area of vasogenic edema within the left posterior frontal lobe and new 12 mm hypodense focus within the right thalamus with mass effect along third ventricle consistent with progressive metastatic disease. -Recommend obtaining brain MRI to better characterize new brain lesions, vasogenic edema as well as reported mass effect along third ventricle. If brain MRI confirms significant vasogenic edema, she will need to continue with steroids up until she is evaluated by her radiation oncologist at [facility] for palliative radiation treatment for brain lesion. -May need cardiac workup if her neurologist does not think syncopal episode was due to seizure especially since 5-FU although rare, could have cardiac side effects. -Patient will continue follow-up with primary oncologist, Dr. Ribera at [facility] to discuss other treatment options and overall treatment plan. Patient agreed with above plan. Thank you for this consult. Oncology will sign off at this time. She will continue follow-up with Dr. Ribera. Please feel free to call if you have any other questions History of Present Illness Reason for Consultation: Pancreatic adenocarcinoma with brain metastasis Attending Physician: Josiah Hendrix DO History of Present Illness Pleasant 78-year-old female with history of adenocarcinoma of the pancreas initially diagnosed around May, for which she initially received neoadjuvant systemic chemotherapy followed by Whipple's procedure on 11/19/2016. She subsequently received adjuvant chemoradiation treatment with Xeloda which was completed in February,. Was diagnosed with biopsy-proven recurrence in the lungs around Oct, 2018 for which she was placed on FOLFOX and subsequently switched to 5-FU/leucovorin every 3 weeks in June, which she has remained on ever since then under the care of Dr. Scott Ribera at [facility]. She was diagnosed with brain metastasis around November, for which she is s/p SRS to 5 brain lesions in December,. She presented to the ER at [facility] yesterday following syncopal episode. CT head on 06/28/2023 revealed scattered intracranial metastatic disease with new focal area of vasogenic edema within the left posterior frontal lobe and new 12 mm hypodense focus within the right thalamus with mass effect along third ventricle consistent with progressive metastatic disease. She indicates that about a year ago, she had a seizure episode shortly after 5-FU infusion and has been followed by neurology ever since then. Was initially placed on Keppra which was poorly tolerated and she indicates that her neurologist recently started her on a new medication but she is unsure of its name. Allergies Allergy/AdvReac Type Severity Reaction Status Date / Time doxycycline Allergy Intermediate Rash Verified 06/19/23 08:28 scopolamine Allergy Intermediate RASH Verified 05/20/23 08:38 simvastatin Allergy Intermediate RASH Verified 05/20/23 08:38 atorvastatin Allergy Mild RASH Verified 05/20/23 08:38 Home Medications Medication Instructions Recorded Confirmed Type multivitamin (Daily Multi-Vitamin 1 tab PO QAM 11/06/18 06/28/23 History tablet) aspirin 81 mg tablet,delayed 81 mg PO QAM #30 tabs 12/24/18 06/28/23 Rx release (Aspir-) mecobalamin (vitamin B12) 1,000 1,000 mcg PO DAILY 12/15/19 06/28/23 History mcg chewable tablet lorazepam 0.5 mg tablet 0.5 mg PO Q8H PRN Anxiety 01/14/20 06/28/23 History prochlorperazine maleate 10 mg 10 mg PO Q6H PRN Nausea 01/14/20 06/28/23 History tablet montelukast 10 mg tablet 10 mg PO DAILY PRN allergies 01/25/21 06/28/23 History (Singulair) calcium 600 mg capsule 1,200 mg PO QPM 07/18/21 06/28/23 History cholecalciferol (vitamin D3) 50 2,000 units PO QAM 07/18/21 06/28/23 History mcg (2,000 unit) capsule alendronate 70 mg tablet 70 mg PO WEEKLY #12 tabs 09/05/22 06/28/23 Rx metoprolol succinate 25 mg 12.5 mg (1/2 x 25 mg) PO QPM #45 11/27/22 06/28/23 Rx tablet,extended release 24 hr tabs vitamins A,C,K-takr-ztwmax 4,296 2 cap PO DAILY 12/30/22 06/28/23 History mcg-226 mg-90 mg capsule (PreserVision AREDS) walker (Ultra-Light Rollator misc) #1 ea 03/05/23 06/28/23 Rx furosemide 40 mg tablet 40 mg PO QAM #90 tabs 03/31/23 06/28/23 Rx omeprazole 20 mg capsule,delayed 20 mg PO QAM #90 caps 04/04/23 06/28/23 Rx release carbamazepine 100 mg 100 mg PO UD 06/28/23 06/28/23 History tablet,extended release,12 hr ferrous sulfate 325 mg (65 mg 325 mg PO DAILY 06/28/23 06/28/23 History iron) tablet levothyroxine 200 mcg tablet 200 mcg PO DAILYBB 06/28/23 06/28/23 History ondansetron HCl 8 mg tablet 8 mg PO Q8H PRN Nausea 06/28/23 06/28/23 History spironolactone 50 mg tablet 50 mg PO DAILY 06/28/23 06/28/23 History Patient History Medical History Arthritis Asthma reports frequent use of rescue inh during spring season only Anemia Pancreatic adenocarcinoma (2015) s/p whipple procedure + chemo/radiation; +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 2018 s/p wedge resection, brain mets November 2022 s/p radiation Cervical facet syndrome Chronic kidney disease, stage III (moderate) Diverticulosis Eczema Osteoporosis Prediabetes Cardiac murmur echo 2017 (scanned in system) -- no survey director Hypothyroidism Hypertension Surgical History Status post surgery port placement S/P dilatation and curettage (2013) Status post lung surgery (10/07/18) L VATS wedge resection x 2, 10/07/18 History of arthroscopy of knee (2018) with medial meniscus repair; right knee H/O dilation and curettage 2013 Hx of endoscopic retrograde cholangiopancreatography 08/07/16 - MAC #3, ETT #7.0, Grade 1 View History of vascular access device History of breast biopsy BILATERAL History of pancreatic surgery (11/18/16) WHIPPLE PROCEDURE, [facility]. PT ALSO HAD RADIATION AND CHEMO (2017) History of lumpectomy of both breasts benign History of bilateral carpal tunnel release Family History Father Family history of malignant melanoma Hypertension Daughter Breast cancer, Onset Age: 48 Mother Rheumatoid arteritis Other No family history of adverse response to anesthesia Denies family history of Ovarian cancer Prostate cancer Myocardial infarction Colorectal cancer Social History Smoking Status: Never smoker Second Hand Exposure: Yes (hx); Do You Dip or Chew Tobacco: No; Hx Alcohol Use: No Hx Substance Use: No Preferred Language: Malay Communication Ability: Effective Visual Impairment: No Limitations Hearing Ability: Normal Agency Appointments Supervisor Required: No Beliefs That Will Affect Care: None marital status: Single Current Living Situation: Alone current occupational status: retired Other Information That Helps Us Care for You: No Feels Safe at Home: Yes Safety Concerns: Feels Safe At This Time Childhood Exposure to Second-Hand Smoke: No Diet: regular Diet Comment: regular caffeine: Yes during the past year weight has: remained stable Dental Care, Regularly: Yes Physical Activity Frequency: Daily Seatbelt Use: always Sunscreen Use: No Assistive Devices: Glasses Results & Data Vital Signs (Past 12 Hours) Vital Signs Temp Pulse Pulse Resp BP BP Pulse Ox 06/29/23 08:04 36.7 C 89 18 154/76 H 95 06/29/23 06:57 76 06/29/23 04:03 36.7 C 70 16 109/65 96 06/28/23 23:39 36.7 C 85 18 125/73 96 06/28/23 21:44 90 06/28/23 21:43 36.8 C 92 H 16 133/77 94 06/28/23 21:00 94 H 20 123/61 93 06/28/23 20:41 130/72 06/28/23 20:26 94 O2 Del Method 06/29/23 08:04 Room Air 06/29/23 06:57 06/29/23 04:03 Room Air 06/28/23 23:39 Room Air 06/28/23 21:44 06/28/23 21:43 Room Air 06/28/23 21:00 06/28/23 20:41 06/28/23 20:26
[2023-06-29] MEDS: ENOXAPARIN INJ 30 MG/0.3 ML SYR SQ SCH (09:23)
--- NOTE | 2023-06-29 10:34 | Ultrasound Report ---
CAROTID ARTERY ULTRASOUND CLINICAL HISTORY: Syncope. COMPARISON STUDY: CTA of the neck December 30, 2022. TECHNIQUE: Real-time, grayscale, and color Doppler sonography of the carotid and vertebral arteries w as performed. Images were viewed in the transverse and longitudinal planes. FINDINGS: There is mild atherosclerotic plaque present. Velocity measurements are listed below. COMMON CAROTID PEAK SYSTOLIC VELOCITY (CM/S): RIGHT 57 LEFT 59 ICA PEAK SYSTOLIC VELOCITY (CM/S): RIGHT 89 LEFT 101 Systolic ratios between the internal to common carotid arteries were normal. Antegrade flow is seen in the vertebral arteries. The external carotid arteries are patent. IMPRESSION: No evidence for a hemodynamically significant stenosis. ACT 112: Negative or not required by law. Electronically signed by: Florencio Marx M.D. 06/29/2023 10:32 AM
--- NOTE | 2023-06-29 11:48 | XCELERA ---
[id number]
[2023-06-29] MEDS ORDERED: GADOBUTROL 7.5ML VIAL IV ONE (11:49)
--- NOTE | 2023-06-29 12:23 | Magnetic Resonance Report ---
MRI OF THE BRAIN WITHOUT AND WITH IV CONTRAST CLINICAL HISTORY: New brain lesions. Fall. COMPARISON STUDY: MRI of the brain December 30, 2022. Head CT June 28, 2022. TECHNIQUE: Utilizing a 1.5 Coby magnet and dedicated coil, multiplanar, multiecho imaging of the br ain was performed pre and postcontrast administration. IV administration of 4.5 mL of Gadavist contr ast was uneventful. Thin cut T1 post contrast imaging was performed. FINDINGS: There are no foci of restricted diffusion to suggest acute infarct. No acute intracranial h emorrhage, midline shift or mass effect is present. There is no evidence for hydrocephalus. Basal cis terns are patent. There are no extra-axial collections. Flow-voids for the major intracranial vessels are present. 1.4 x 1.2 cm extra-axial enhancing midline lesion along the cribriform plate is unchang ed. This favors a meningioma. A 1 cm peripherally enhancing lesion within the right thalamus on axial thin cut T1 post contrast image 60 of 124 is new since MRI of December 30, 2022. Associated mild vasogen ic edema with mass effect results in mild effacement third ventricle. There is no evidence for hydroc ephalus. A 2 x 0.8 cm cortical/subcortical enhancing focus which extends to the dura within the left frontal lobe on axial image 46 of 124 is new since prior exam. This has moderate associated vasogenic edema. Additional previously described lesions have decreased in size and enhancement since MRI of J [id number]. Index left frontoparietal lesion on image 20 measures 1.1 x 0.9 cm. It previously measu red 1.7 x 1.4 cm. A left occipital lobe lesion on image 69 measures 0.7 cm. It previously measured 1. 2 cm. The findings suggest a mixed treatment response. No calvarial lesions are present. IMPRESSION: 1. Findings suggestive of a mixed treatment response, as described above. 2 cm enhancing lesion withi n the left frontal lobe and a 1 cm lesion within the right thalamus which results in mild mass effect upon the third ventricle without hydrocephalus. These lesions are new since MRI of December 30, 2022 and are consistent with metastatic disease. The remainder of the previously described lesions have decre ased in size and enhancement since prior exam. 2. No acute intracranial hemorrhage. No evidence for acute infarct. ACT 112: Negative or not required by law. Electronically signed by: Florencio Marx M.D. 06/29/2023 12:20 PM
--- NOTE | 2023-06-29 16:23 | Billing Data ---
Date of Service June 29, 2023 Coding Level of Care Code 88314 SUB INP/OBS CARE MIN
[2023-06-29] MEDS ORDERED: METOPROLOL SUCC 25MG EXT REL TAB PO SCH (21:00)
[2023-06-30] MEDS: LEVOTHYROXINE SODIUM 200 MCG TABLET PO SCH (05:48)
[2023-06-30] MEDS: dexAMETHasone 4 MG in SYRINGE 0 ML IV SCH ×2 (05:49→11:32)
--- NOTE | 2023-06-30 07:18 | Discharge Summary ---
Date of Service June 30, 2023 Admission HPI Per Admitting Provider Thania Barragan is a 78yo female with history of pancreatic cancer, Hypothyroidsm, CKD and Seizures presenting from home after a syncopal event. Patient had been in her usual state off health. Around 15:00 she became shaky. She sat down to rest then got up to go to the kitchen and text her daughter. She reports feeling warm and lightheaded then passing out. She was sitting on the chair and did hit her head on the stove. She was apparently out for 30-45 minutes. Her [id number]-ver does not report any seizure-like activity, no tongue biting, no incontinence. When she woke up she denies confusion or post-ictal state. She denies chest pain, palpitations, SOB. Denies abdominal pain, nausea, vomiting, diarrhea or constipation. No leg pain or edema. No prior history of VTE. In the ER she was hypotensive on arrival which improved with IVF. ER Course: NSS at 125mL/hr Admission Exam Per Admitting Provider General: patient resting comfortably, NAD, non-toxic in appearance, AA&O x 4 Skin: warm, dry, intact, no rashes or lesions HEENT: ecchymosis over right eye, PERRL, EOMI, anicteric sclera, conjunctiva without injection, external ear normal to inspection and nontender, nares patent, moist mucus membranes, dentition intact, no oropharyngeal lesions, neck supple, trachea midline, no LAD, no thyromegaly, no JVD Heart: +S1/S2, regular, 3/6 HERNANDO across precordium, left chest wall port in place with no bleeding/erythema Lungs: equal air entry bilaterally, no rales/rhonchi/wheezes Abd: +BS, soft, NT/ND, no masses/organomegaly/ascites Ext: warm, 2+ pulses in UE/LE bilaterally, no clubbing/cyanosis or edema Neuro: nonfocal, patient AA&O x 4, speech intact, no facial droop, moving all extremities on command with equal strength 5/5 Principal Diagnosis Pancreatic adenocarcinoma with mets to the brain Discharge Exam General: Pleasant, appearing elderly woman in no acute distress. small laceration at right [employer]ec[employer]alism dressed with Dermabond. HEENT: PERRLA. Normal conjunctiva, anicteric sclera. Oropharynx normal. Respiratory: Normal respiratory effort, CTABL. Cardiovascular: Regular rate and rhythm. systolic murmur heard loudest at LUSB. No gallops or rubs. No pedal edema. GI: Nontender x4 quadrants Neuro: Alert and oriented x3. Discharge Data Allergies Allergy/AdvReac Type Severity Reaction Status Date / Time doxycycline Allergy Intermediate Rash Verified 06/19/23 08:28 scopolamine Allergy Intermediate RASH Verified 05/20/23 08:38 simvastatin Allergy Intermediate RASH Verified 05/20/23 08:38 atorvastatin Allergy Mild RASH Verified 05/20/23 08:38 Consultations 06/28/23 19:51 ED Decision to Admit Stat 06/28/23 21:58 Consult Hematology Routine Ordered Studies 06/28/23 18:29 CT cervical spine wo con Stat 06/28/23 18:30 CT head/brain wo con Stat 06/29/23 US carotid doppler BI Routine 06/29/23 10:21 MRI Brain [MR brain wo/w con] Routine Cervical Spine CT 06/28/23 18:[address] DOSE: HISTORY: fall, CHI TECHNIQUE: Multiaxial CT images of the cervical spine were performed and reformatted in the sagittal and coronal plane without the use of contrast. A dose lowering technique was utilized adhering to the principles of ALARA. COMPARISON: None. FINDINGS: A left jugular Port-A-Cath is partially visualized. There is mild reversal of the normal lordotic curvature. This is secondary to the moderate to severe degenerative changes and multilevel spondylolisthesis. Prevertebral soft tissues and the C1-C2 interval are intact. No acute fractures. IMPRESSION: No fractures within the cervical spine. ACT 112: Negative or not required by law. Electronically signed by: Hany Corey M.D. 06/28/2023 7:40 PM Chest X-Ray 06/28/23 18:29 XR chest 1V portable HISTORY: weakness COMPARISON: Chest 12/30/2022. FINDINGS: No pneumothorax. No pleural effusions. There are low lung volumes with a few bibasilar linear densities consistent with subsegmental atelectasis. No new focal lung consolidations. No evidence for pulmonary edema. The heart is normal in size. A left jugular Port-A-Cath terminates in the SVC. A few scattered lung nodules again noted. These remain unchanged. There are suture material within the left lung. No acute fractures. Surgical clips within the right upper quadrant. IMPRESSION: 1. No acute process within the chest. 2. A few pulmonary nodules again noted which likely represent metastatic disease. ACT 112: Negative or not required by law. Electronically signed by: Hany Corey M.D. 06/28/2023 7:[address] 06/28/23 18:[address] DOSE: 930.06 mGy.cm HISTORY: Known intracranial metastatic disease. fall, syncope, R impact TECHNIQUE: Multiaxial CT images of the head were performed without the use of intravenous contrast. Automated exposure control was utilized for this study. A dose lowering technique was utilized adhering to the principles of ALARA. Comparison: Head CT 12/30/2022. Brain MRI 12/30/2022. Findings: The paranasal sinuses and mastoid air cells are clear. The calvarium and skull base are intact. The ventricles are normal in size. No acute infarct or intracranial hemorrhage. Scattered small areas of vasogenic edema again noted within the cerebral hemispheres most pronounced on the left. This is similar to the prior studies and corresponds the patient's known intracranial metastatic lesions. There is a new small focus of vasogenic edema seen within the left posterior frontal lobe on image 19 there is also a new 12 mm hypodense focus within the right thalamus resulting in mild mass effect along the third ventricle. This favors progressive intracranial metastatic disease. Impression: 1. No acute infarct or acute intracranial hemorrhage. 2. Scattered intracranial metastatic disease is again noted. There is a new focal area of vasogenic edema within the left posterior frontal lobe and a new 12 mm hypodense focus within the right thalamus. This is consistent with progressive intracranial metastatic disease. The right thalamic lesion results in mass effect along the third ventricle. However, no hydrocephalus at this time. ACT 112: Negative or not required by law. Electronically signed by: Hany Corey M.D. 06/28/2023 7:47 PM Carotid Doppler Study 06/29/23 00:00 CAROTID ARTERY ULTRASOUND CLINICAL HISTORY: Syncope. COMPARISON STUDY: CTA of the neck December 30, 2022. TECHNIQUE: Real-time, grayscale, and color Doppler sonography of the carotid and vertebral arteries was performed. Images were viewed in the transverse and longitudinal planes. FINDINGS: There is mild atherosclerotic plaque present. Velocity measurements are listed below. COMMON CAROTID PEAK SYSTOLIC VELOCITY (CM/S): RIGHT 57 LEFT 59 ICA PEAK SYSTOLIC VELOCITY (CM/S): RIGHT 89 LEFT 101 Systolic ratios between the internal to common carotid arteries were normal. Antegrade flow is seen in the vertebral arteries. The external carotid arteries are patent. IMPRESSION: No evidence for a hemodynamically significant stenosis. ACT 112: Negative or not required by law. Electronically signed by: Florencio Marx M.D. 06/29/2023 10:32 AM Brain MRI 06/29/23 10:21 MRI OF THE BRAIN WITHOUT AND WITH IV CONTRAST CLINICAL HISTORY: New brain lesions. Fall. COMPARISON STUDY: MRI of the brain December 30, 2022. Head CT June 28, 2022. TECHNIQUE: Utilizing a 1.5 Coby magnet and dedicated coil, multiplanar, multiecho imaging of the brain was performed pre and postcontrast administration. IV administration of 4.5 mL of Gadavist contrast was uneventful. Thin cut T1 post contrast imaging was performed. FINDINGS: There are no foci of restricted diffusion to suggest acute infarct. No acute intracranial hemorrhage, midline shift or mass effect is present. There is no evidence for hydrocephalus. Basal cisterns are patent. There are no extra- axial collections. Flow-voids for the major intracranial vessels are present. 1.4 x 1.2 cm extra-axial enhancing midline lesion along the cribriform plate is unchanged. This favors a meningioma. A 1 cm peripherally enhancing lesion within the right thalamus on axial thin cut T1 post contrast image 60 of 124 is new since MRI of December 30, 2022. Associated mild vasogenic edema with mass effect results in mild effacement third ventricle. There is no evidence for hydrocephalus. A 2 x 0.8 cm cortical/subcortical enhancing focus which extends to the dura within the left frontal lobe on axial image 46 of 124 is new since prior exam. This has moderate associated vasogenic edema. Additional previously described lesions have decreased in size and enhancement since MRI of December 30, 2022. Index left frontoparietal lesion on image 20 measures 1.1 x 0.9 cm. It previously measured 1.7 x 1.4 cm. A left occipital lobe lesion on image 69 measures 0.7 cm. It previously measured 1.2 cm. The findings suggest a mixed treatment response. No calvarial lesions are present. IMPRESSION: 1. Findings suggestive of a mixed treatment response, as described above. 2 cm enhancing lesion within the left frontal lobe and a 1 cm lesion within the right thalamus which results in mild mass effect upon the third ventricle without hydrocephalus. These lesions are new since MRI of December 30, 2022 and are consistent with metastatic disease. The remainder of the previously described lesions have decreased in size and enhancement since prior exam. 2. No acute intracranial hemorrhage. No evidence for acute infarct. ACT 112: Negative or not required by law. Electronically signed by: Florencio Marx M.D. 06/29/2023 12:20 PM Hospital Course (1) Syncope and collapse: 78 F with PMH of metastatic pancreatic adenocarcinoma (brain, lung mets) and focal seizures (on Lamictal) who presented to the ED following a syncopal episode. Syncope and collapse -Workup to date: EKG (NSR), CXR (no acute changes), troponin (minimally elevated, already downtrending), UA (1+ leuk est only, no bacteriuria, patient asymptomatic), CBC (unremarkable). -CT head: "New focal area of vasogenic edema within the left posterior frontal lobe and a new 12 mm hypodense focus within the right thalamusconsistent with progressive intracranial metastatic diseaseresults in mass effect along the third ventricleno hydrocephalus." No acute infarct or acute ICH noted. -S/p IV dexamethasone 10 mg on admission, IV Rocephin 2 g in the ED. -Suspect return of focal seizures in the setting of acute metastatic changes to the brain. -ECHO showed an EF of 60-65%. -Negative bilateral carotid Doppler Pancreatic Adenocarcinoma (brain, lung mets) -Metastatic (brain, lungs). Follows with Dr. Ribera (oncology) and Dr. Call (radiation oncology), both at [facility]. -Chemotherapy currently on hold due to incidence of focal seizures. Next appointment x 1 week (07/09) to evaluate for possible chemotherapy restart. -S/p IV dexamethasone 10 mg on admission due to new vasogenic edema. -2016: Initially diagnosis, s/p chemotherapy, Whipple procedure (2016), additional radiation + chemotherapy. -2018: pulmonary nodules confirmed positive for metastatic disease s/p wedge resection (x 2) in October 2018. -2022: multiple brain mets in November, also s/p radiation, chemotherapy (held, as detailed above). -MRI showed a 2 cm enhancing lesion within the left frontal lobe and a 1 cm lesion within the right thalamus which results in mild mass effect upon the third ventricle without hydrocephalus. These lesions are new since MRI of December 30, 2022 and are consistent with metastatic disease. -MRI brain: No evidence of infarct, ICH, or hydrocephalus. Did show 2 new lesions since last MRI brain (December 30, 2022): 2 cm lesion in the left frontal lobe (with moderate associated vasogenic edema), and a 1 cm lesion within the right thalamus (with mild vasogenic edema). -New changes consistent with metastatic progression, per radiology report. -Discussed with oncologist, who agreed with continuing steroids at discharge until follow-up appointment with outpatient oncologist (Dr. Scott Ribera), and radiation oncologist (Dr. Pedro Call) at [facility] next week. -Will discharge on p.o. dexamethasone: 4 mg daily x 6 days, then slow taper over weeks. Focal Seizures -Recently diagnosed 2022. Managed by Dr. Tim Sierra (neurologist at [facility]). Currently asymptomatic. -Per patient (confirmed on review of neurology visit note), was initially on Keppra (stopped after 2 weeks d/t poor tolerance), then carbamazepine (also po amilcar tolerated). -Suspect patient's syncopal episode due to focal seizure, given similar prodromal presentation (bilateral paresthesias of the hands). -Follow-up with outpatient neurology, will hold carbamazepine at this time. Chronic Kidney Disease stage III -GFR near baseline on admission labs. Hypertension -Chronic. Managed on metoprolol succinate 12.5 mg every evening. Stable. Hypothyroidism -Chronic. On levothyroxine 200 mcg daily. TSH on admission normal (2.621). Stable. Anxiety -Chronic. Takes lorazepam 0.5 mg as needed. PDMP reviewed. Pedal Edema -Chronic, albeit intermittent. Takes Lasix 40 mg only as needed. -No edema at present. (2) Pancreatic adenocarcinoma: (3) Focal seizure: (4) Chronic kidney disease, stage III (moderate): (5) Hypertension: (6) Hypothyroidism: (7) Osteoporosis: (8) Anxiety: Total Time Total Time Spent Total Time Spent (In Minutes): Please refer to attendings attestation Discharge Plan Discharge Items Patient Disposition: Home - Self-Care Reason For Visit: SYNCOPE Discharge Diagnosis: Syncope Activity: Per Instructions section Non-emergency contact: Primary Care Provider, Neurologist and Oncologist Call non-emergency contact if: you have any medication questions and your symptoms worsen Follow-up/Referrals: Jennifer Hylton DO [Primary Care Provider] - 07/07/23 10:20 am Tim Sierra MD [Physician] - Scott Ribera MD [Surgeon] - Pedro Call MD [Outside Practitioners] - Diet: Regular Addtl Attending Provider Instructions: Dear Thania, You were brought to the hospital via ambulance after an unwitnessed syncopal episode (you passed out while alone at home). You were evaluated to make sure you did not suffer from an acute catastrophic event such as a stroke, and were admitted for further evaluation and treatment. Your stroke workup did not show any evidence of infarction or hemorrhage, and your neurological exam did not show any focal weakness or other positive neurological findings. That said, we discovered new brain lesions with surrounding edema (i.e. swelling) on CT imaging of your head. The finding of edema surrounding new lesions suggests that these lesions are fairly recent. You were treated with IV steroids for the brain swelling. You also had an MRI of your brain to visualize these new lesions more accurately this confirmed the presence of these new lesions. Furthermore, these new lesions suggest a progression of brain metastases from the primary pancreatic adenocarcinoma. We believe these new brain changes may be responsible for your syncopal episode. We kept you overnight for observation to ensure that your symptoms did not recur, which they did not. Consequently, we feel that you are now ready to be safely discharged home. 1. We are sending you home on a new medication called dexamethasone, a steroid. Please take dexamethasone 4 mg, once daily for the next 6 days, until your next appointment with your oncologist at [facility]. Your oncologist will also start to slowly taper this medication over a couple of weeks. (In the event that you finish your prescription before your next visit, contact your oncologist, Dr. Sctot Ribera, at [phone]). 2. We spoke to your outpatient neurologist, Dr. Tim Sierra, to corroborate his outpatient plan of your focal seizures. Following this discussion, we recommend that you hold off on taking your prescribed carbamazepine when you are discharged. Your next outpatient neurology appointment should be moved up. Please call their office to get seen sooner. 3. Please make sure to attend all of your upcoming follow-up visits. If you are unable to attend any of your appointments, contact your PCP, Dr. Jennifer Hylton, at [phone]. 4. We made no other changes to your medications. You may continue to take your medication as previously prescribed unless otherwise directed to by your primary care physician or oncology specialists. 5. If you experience any new syncopal episode before you have been evaluated by a neurologist, call your primary care physician, Dr. Hylton. If you are unable to reach her clinic, please go to the emergency room. It has been a pleasure to care for you here at [facility]. If you have any questions or concerns about your care, you may reach out to us at [phone]. Pending Studies at Discharge: No Stand-Alone Forms: My [facility], Smoking Cessation Medications and DC Order Prescriptions: New dexamethasone 4 mg tablet 4 mg PO DAILY 6 Days Qty: 6 0RF Continued alendronate 70 mg tablet 70 mg PO WEEKLY Qty: 12 3RF Rx Instructions: sundays metoprolol succinate 25 mg tablet extended release 24 hr 12.5 mg PO QPM Qty: 45 3RF furosemide 40 mg tablet 40 mg PO QAM Qty: 90 1RF omeprazole 20 mg capsule,delayed release(DR/EC) 20 mg PO QAM Qty: 90 1RF aspirin [Aspir-81] 81 mg tablet,delayed release (DR/EC) 81 mg PO QAM Qty: 30 0RF montelukast [Singulair] 10 mg tablet 10 mg PO DAILY PRN (Reason: allergies) lorazepam 0.5 mg tablet 0.5 mg PO Q8H PRN (Reason: Anxiety) prochlorperazine maleate 10 mg tablet 10 mg PO Q6H PRN (Reason: Nausea) mecobalamin (vitamin B12) 1,000 mcg tablet,chewable 1,000 mcg PO DAILY (DME) Ultra-Light Rollator Misc See Rx Instructions .Route Qty: 1 0RF Rx Instructions: As directed multivitamin [Daily Multi-Vitamin] tablet 1 tab PO QAM cholecalciferol (vitamin D3) 50 mcg (2,000 unit) capsule 2,000 units PO QAM calcium 600 mg Capsule 1,200 mg PO QPM PreserVision AREDS 4,296 mcg-226 mg-90 mg Capsule 2 cap PO DAILY ondansetron HCl 8 mg Tablet 8 mg PO Q8H PRN (Reason: Nausea) levothyroxine 200 mcg tablet 200 mcg PO DAILYBB spironolactone 50 mg Tablet 50 mg PO DAILY ferrous sulfate 325 mg (65 mg iron) tablet 325 mg PO DAILY Discontinued carbamazepine 100 mg tablet extended release 12 hr 100 mg PO UD Rx Instructions: 1 tablet daily for 7 days then 1 tablet twice a day HAS NOT STARTED YET Discharge Orders: Discharge Order (Routine); Ordered 06/30/23 Ordered By: Tano Marrero Admission Data Admit Date/Time: 06/28/23 20:16 Attending Provider: Brian Franco Admit Provider: Sumaya Arias Primary Care Provider: Jennifer Hylton Other Providers: Sumaya Arias; Krissy Alexander Other Interventions: Discharge Summary Assessment (RN) Last Done: 06/30/23 13:06 Supervising Physician Co-Signing Physician Notes Attending attestation Pt seen and examined in concert with Dr. Marrero. In agreement with the documented findings as noted in the resident documentation with any exceptions or additions as noted here. Daughter at bedside providing supplemental history, chiefly that previous episodes of LOC have behaved similarly and that the patient is not currently medication for her seizures. On examination, S1/S2 nl RRR no MCG. CTAB. Abd NT/ND BS+ve Episodic LOC with concern for seizure, vasogenic edema for metastatic disease - continue dexamethasone and taper with rad-onc at close follow up. After d/w Dr. Sierra, will follow up for consideration of restart seizure medication as patient self-d/c'd due to adverse effects Else see resident documentation as noted. Total attending physician time spent with this patient's care on the day of discharge :35 min Resident Activity Tracking Resident Involvement: Resident Care Provided Care Provided: Adult Hospital Medicine
[2023-06-30 07:27] LABS: Estimated Average Glucose 114 mg/dl; Hemoglobin A1C 5.6 % (4.5-5.6)
[2023-06-30 08:19] LABS: Albumin Level 2.8 gm/dl (3.4-5.0); BUN Creatinine Ratio 17.9 (10-20); Bilirubin,Total 0.4 mg/dl (0.2-1.0); Calcium 8.3 mg/dl (8.6-10.3); Creatinine Clr Calc Pharmacy 28.7 ml/min; Est GFR (African American) 54.9 ml/min; Est GFR (Non-African American) 47.3 ml/min; Globulin 2.8 gm/dl (2.5-4.0); Potassium 4.6 mmol/L (3.5-5.1); Total Protein 5.6 gm/dl (6.0-8.3)
[2023-06-30] MEDS: ENOXAPARIN INJ 30 MG/0.3 ML SYR SQ SCH (08:47)
[2023-06-30] MEDS: ASPIRIN 81 MG ECTAB PO SCH (08:47)
[2023-06-30] MEDS ORDERED: HEPARIN 100 UNIT/ML 5ML FLUSH FLUSH PRN (11:51)
== END 2023-06-30 13:23 | disposition home or self-care (01) ==
LOC: ED 18:01 → 2N 18:01 → SUATTDRO 20:16 → 2N 21:35